=== PATIENT | female | born 1935 | race Caucasian/White ===

== ENCOUNTER → 2023-07-15 10:11 | Outpatient (REF) | payer OTHER, SELFPAY | LOC: DHCBC HW 10:11 | PROVIDERS: ATTENDING PHYSICIAN Internal Medicine; FAMILY PHYSICIAN Internal Medicine | DX: I35.0 Nonrheumatic aortic (valve) stenosis (principal); I34.0 Nonrheumatic mitral (valve) insufficiency | CPT/HCPCS: 93306 ==

== ENCOUNTER 2023-10-02 06:11 | Day surgery (SDC) | payer OTHER, SELFPAY ==
[2023-09-25 12:26] VITALS: BMI 22.4
[2023-09-25 12:59] LABS: % Basophils 0.5 % (0-2); % Eosinophils 1.3 % (0-6); % Immature Granulocytes 0.5 % (0-0.5); % Lymphocytes 22.7 % (20.5-51.1); % Monocytes 9.4 % (1.7-9.3); % Neutrophils 65.6 % (42.2-75.2); Absolute Eosinophils 0.1 10^3/uL (0-0.7); Absolute Lymphocytes 1.8 10^3/uL (1.2-3.4); Absolute Monocytes 0.7 10^3/uL (0.1-0.6); Absolute Neutrophils 5.1 10^3/uL (1.4-6.5); Hematocrit 37.2 % (37.0-47.0); Hemoglobin 12.5 g/dL (12.0-16.0); Mean Corp Hgb Conc. 33.6 g/dL (33.0-37.0); Mean Corpuscular Hgb 28.7 pg (27.0-31.0); Mean Corpuscular Volume 85.3 fL (81.0-99.0); Mean Platelet Volume 9.7 fL (7.4-10.4); Nucleated Red Blood Cells % 0 %; Platelet Count 302 10^3/uL (130-400); Red Blood Cell Count 4.36 10^6/uL (4.20-5.40); Red Cell Dist. Width 13.4 % (11.5-14.5); White Blood Cell Count 7.8 10^3/uL (4.8-10.8)
[2023-09-25 13:15] LABS: ALT (SGPT) 59 U/L (0-35); AST (SGOT) 53 U/L (14-36); Albumin 4.4 g/dl (3.5-5.0); Alkaline Phosphatase 76 U/L (38-126); Blood Urea Nitrogen 22 mg/dl (7-17); Calcium 9.8 mg/dl (8.4-10.2); Carbon Dioxide 24 mmol/L (22-30); Chloride 102 mmol/L (98-107); Estimated Creatinine Clearance 41 ml/min; Glucose 145 mg/dl (70-99); Potassium 4.1 mmol/L (3.5-5.1); Sodium 135 mmol/L (135-145); Total Bilirubin 0.5 mg/dl (0.2-1.3); Total Protein 7.7 g/dl (6.3-8.2); eGFR > 60.00
[2023-10-02] VITALS (12 sets, daily range): BP systolic 121–186; BP diastolic 56–104; BMI 22.3
[2023-10-02] MEDS: NSS 143 ML IV (07:00)
--- NOTE | 2023-10-02 09:10 | ITS.CL.CATH ---
Registered Radiologic Technologist - Catheterization
Cardiac Catheterization
Procedure Report:
CARDIAC CATHETERIZATION REPORT
Date of Procedure: 10/02/2023
Referring: Tucker Arndt MD, PhD
HEMODYNAMIC DATA
AO: 151/69
LV: 128/80
There is moderate aortic stenosis with mean transvalvular gradient 21 mmHg
LEFT VENTRICULOGRAPHY: Not performed
CORONARY ANGIOGRAPHY
Dominance: Right
Left Main: Normal
LAD: Moderate calcification with 30% mid LAD stenosis and otherwise diffuse luminal irregularities
Circumflex: Mild luminal irregularities
RCA: Severely calcified vessel with 99% highly calcific angulated stenosis at the crux. The PDA and posterolateral branches fill antegrade and via fairly well-developed [id number] collaterals
Of note, there was significant innominate artery spasm following coronary angiography which made placing a catheter in the left ventricle technically challenging.
Closure Device: None-the procedure was performed via the right radial artery. The Roge's test was normal prior to the procedure.
Radiation (mGy): 165
DAP (cm2.Gy): 16.7
Fluoroscopy time: 8.5 minutes
CONCLUSIONS
1: Moderate aortic stenosis with mean aortic gradient 21 mmHg
2: Severe single-vessel (RCA) CAD as described
3. Would favor medical therapy at this point as the distal RCA is collateralized. Treatment of the 99% mid RCA lesion will require atherectomy and can be performed if the patient has persistent or accelerating symptoms despite medical therapy.
Continue serial clinical and echocardiographic follow-up for progression of aortic stenosis
Copy to: Tucker Arndt MD, PhD, Lakisha Brock MD
Cameron Young MD, [facility], [facility]
[2023-10-02] MEDS: ZESTRIL 20 MG PO (10:12)
[2023-10-02] MEDS: COREG 9.375 MG PO (10:13)
[2023-10-02] MEDS: NORVASC 5 MG PO (10:13)
--- NOTE | 2023-10-02 11:47 | PTCARENOTE ---
Received report from RN.
--- NOTE | 2023-10-02 12:45 | PTCARENOTE ---
Pt sitting in stretcher AAOx3. See vitals and radial cath site documentation. Pt incontinent of urine and requesting to get dressed.
Pt assisted to restroom w cane. Large amount of incontinence. Cleaned pt and assisted with dressing while reviewing d/c instructions. Pt verbalized and repeated instructions.
Medication script given to pt along w instructions.
== END 2023-10-02 12:38 | disposition home or self-care (01) ==
LOC: CATH 06:11
PROVIDERS: ATTENDING PHYSICIAN Internal Medicine Cardiovascular Disease; FAMILY PHYSICIAN Internal Medicine; OTHER PHYSICIAN Internal Medicine
DX: I25.10 Atherosclerotic heart disease of native coronary artery without angina pectoris (principal); I35.0 Nonrheumatic aortic (valve) stenosis; I10 Essential (primary) hypertension; I48.0 Paroxysmal atrial fibrillation; E78.00 Pure hypercholesterolemia, unspecified; I49.3 Ventricular premature depolarization; I44.0 Atrioventricular block, first degree; Z79.01 Long term (current) use of anticoagulants
CPT/HCPCS: 36415; 80053; 85025; 93005; 93458; C1769; C1894; Q9967

== ENCOUNTER 2024-04-28 15:51 | Emergency (ER) | payer OTHER, SELFPAY ==
[2024-04-28 15:55] VITALS: BP 170/89
--- NOTE | 2024-04-28 15:57 | ED.GENMED ---
ED Provider Triage
<Ricardo Schroeder PA-C - Last Filed: 04/28/24 16:04>
-
Patient seen by provider in Triage?: Seen in Triage
Attestation: A medical screening examination has been initiated by a qualified medical provider. Based on the assessment performed at this time, it has been determined that an emergent medical condition may exist and the patient has been informed
that further medical evaluation and possible additional diagnostic testing may be needed.
HPI: 88-year-old female [facility] after she was diagnosed with multiple left-sided rib fractures from a fall 2 days ago. Patient is on Xarelto due to a history of atrial fibrillation. Does
not believe she hit her head but does note that she was lying flat on the ground. No reported LOC. Patient is endorsing diffuse left-sided chest and upper pain. Due to patient being anticoagulated and known multiple left-sided rib fractures from
an x-ray done earlier today she was brought immediately back into the ER for stat imaging
GENERAL: Alert , in no apparent distress
EYE: No visual abnormalities.
NECK: Trachea midline
ENT: No visible abnormalities.
LUNGS: No acute respiratory distress
NEUROLOGICAL: Alert and oriented
SKIN: Skin intact. No visible changes.
MUSCULOSKELETAL: Moving extremities normally
PSYCH: Normal and appropriate interaction.
This is a medical evaluation conducted in person to initiate diagnostic evaluation and provide initial therapeutics. Please see further documentation by the treating clinician.
History of Present Illness
<Ricardo Schroeder PA-C - Last Filed: 04/28/24 16:04>
General
Chief Complaint: Musculo-Skeletal Complaint
Time Seen by Provider: 04/28/24 16:11
<Reece De La Torre DO - Last Filed: 04/28/24 19:38>
History of Present Illness
History of Present Illness:
TIME OF INITIAL ENCOUNTER: 4:15pm
HPI: 88-year-old female presenting [facility] after she was found to have abnormal x-ray of the chest suggesting left-sided rib fractures. She did not feel when she woke up 2 mornings ago and after she
fell she felt dizzy. Patient is on Xarelto due to a history of atrial fibrillation. The patient does not believe she hit her head but her son suspects that she did strike her head. No reported LOC. Patient is endorsing diffuse left-sided chest
that is transient nature.
EXAM:
GENERAL: Well appearing in no distress, however at times she has significant distress due to pain in the left side of the chest the chest last for a couple of seconds
CERVICAL SPINE: No midline c-spine tenderness with excellent AROM
HEAD: No evidence of craniofacial trauma other than very minimal abrasion over the left eyebrow
CHEST: Moderate left-sided chest wall tenderness, normal heart sounds
LUNGS: Equal lung sounds, no respiratory distress
ABDOMEN: Minimal left upper quadrant abdominal tenderness, no peritoneal signs
EXTREMITIES: Normal active range of motion, no tenderness
NEURO: Good strength all extremities, appropriate mental status, normal speech/language
NUMBER AND COMPLEXITY OF PROBLEMS ADDRESSED AT THE ENCOUNTER
� Chronic conditions affecting care: A-fib on Xarelto, high blood pressure, hyperlipidemia
� Acute Exacerbation and/or Progression of Chronic Illness: This is an acute problem
� Differential Diagnosis includes: Rib fractures, splenic laceration, intracranial hemorrhage, chest/abdominal wall contusion
AMOUNT AND/OR COMPLEXITY OF DATA TO BE REVIEWED AND ANALYZED
� I performed an independent evaluation of and my interpretation is:
EKG: Sinus 71, normal axis, PACs
CT: CTs of the head and C-spine are negative for traumatic injury
X-rays:
Laboratory Studies: White count 12.3, hemoglobin normal, chemistry showed normal renal function
Other:
� Review of other/old records: I reviewed records. In September, the patient had a cardiac catheterization that showed moderate aortic stenosis with severe RCA single-vessel disease for which medical therapy was recommended as the
distal RCA was collateralized.
� Clinical information was obtained by an independent historian: I spoke to the son at bedside for history
� Prescriptions/Medications Considered but not given: Considered narcotic analgesia however after discussion with the son at bedside, we agreed to hold off on narcotic analgesia given the patient's advanced age
� Further testing considered but not performed: Considered x-rays of the shoulders however there is no significant bony tenderness and I personally reviewed the CT imaging of the proximal humeri on CT imaging
RISK OF COMPLICATIONS AND/OR MORBIDITY OR MORTALITY OF PATIENT MANAGEMENT
� Social determinants of health affecting care: Lives at home
� Discussion with other providers:
� Escalation of care including admission/observation vs risk of discharge considered: The patient was seen in triage and imaging studies have been ordered by PA initially.
ANY OTHER UPDATES:
7:20 PM: The patient appears comfortable and denies any significant pain on reassessment. The patient was given Tylenol earlier.
Phy Exam
<Reece De La Torre DO - Last Filed: 04/28/24 19:38>
Physical Exam
Physical Exam:
See HPI
Course
<Ricardo Schroeder PA-C - Last Filed: 04/28/24 16:04>
Orders/Labs/Results
Orders:
Orders
04/28/24 15:58
CT Head W/o Iv Contrast Urgent
Comment:
Reason For Exam: fall 2 days ago, on xarelto
04/28/24 15:59
Electrocardiogram (*1) Urgent
Reason for Study: Chest Pain
EKG- Treatment ONCE
04/28/24 16:01
CT Cervical Spine W/o Iv Contr Urgent
Comment:
Reason For Exam: fall, trauma
CT Chest/abd/pel W Iv Cont Urgent
Reason For Exam: multiple rib fx from fall, on xarelto
04/28/24 16:13
Type+Screen Urgent
Basic Metabolic Panel Urgent
Complete Blood Count/With Diff Urgent
PTT Urgent
Prothrombin Time Urgent
04/28/24 16:36
Acetaminophen [Tylenol] 650 mg PO NOW STA
04/28/24 17:45
ABO2 Urgent
BBK Wristband Number:
Associate notified that ABO2 has been ordered: [id number]
Date: 04/28/24
Time: 16:52
Cloth Washer Back Tender ID: [id number]
Abnormal Lab Results
04/28/24
16:13
WBC 12.3 H 10^3/uL
(4.8-10.8)
Abs Immat Gran (auto) 0.1 H 10^3/uL
(0-0.05)
Absolute Neuts (auto) 9.4 H 10^3/uL
(1.4-6.5)
Absolute Monos (auto) 1.2 H 10^3/uL
(0.1-0.6)
Immature Gran % 0.6 H %
(0-0.5)
Neutrophils % 76.0 H %
(42.2-75.2)
Lymphocytes % 13.3 L %
(20.5-51.1)
Monocytes % 9.6 H %
(1.7-9.3)
PT 15.0 H Sec
(11.4-14.6)
Sodium 132 L mmol/L
(135-145)
Chloride 95 L mmol/L
(98-107)
BUN 19 H mg/dl
(7-17)
Creatinine 0.5 L mg/dL
(0.6-1.0)
Glucose 115 H mg/dl
(70-99)
04/28/24 16:13
04/28/24 16:13
Vital Signs
Initial and Last Documented VS:
Initial Vital Signs
Temp Pulse Resp BP Pulse Ox
36.5 C 80 16 170/89 96
04/28/24 15:55 04/28/24 15:55 04/28/24 15:55 04/28/24 15:55 04/28/24 15:55
Last Documented Vital Signs
Temp Pulse Resp BP Pulse Ox
36.5 C 71 24 129/71 94
04/28/24 15:55 04/28/24 19:15 04/28/24 19:15 04/28/24 19:00 04/28/24 19:15
<Reece Donaldo De La Torre, DO - Last Filed: 04/28/24 19:38>
Orders/Labs/Results
Orders:
Orders
04/28/24 15:58
CT Head W/o Iv Contrast Urgent
Comment:
Reason For Exam: fall 2 days ago, on xarelto
04/28/24 15:59
Electrocardiogram (*1) Urgent
Reason for Study: Chest Pain
EKG- Treatment ONCE
04/28/24 16:01
CT Cervical Spine W/o Iv Contr Urgent
Comment:
Reason For Exam: fall, trauma
CT Chest/abd/pel W Iv Cont Urgent
Reason For Exam: multiple rib fx from fall, on xarelto
04/28/24 16:13
Type+Screen Urgent
Basic Metabolic Panel Urgent
Complete Blood Count/With Diff Urgent
PTT Urgent
Prothrombin Time Urgent
04/28/24 16:36
Acetaminophen [Tylenol] 650 mg PO NOW STA
04/28/24 17:45
ABO2 Urgent
BBK Wristband Number:
Associate notified that ABO2 has been ordered: [id number]
Date: 04/28/24
Time: 16:52
Cloth Washer Back Tender ID: [id number]
Abnormal Lab Results
04/28/24
16:13
WBC 12.3 H 10^3/uL
(4.8-10.8)
Abs Immat Gran (auto) 0.1 H 10^3/uL
(0-0.05)
Absolute Neuts (auto) 9.4 H 10^3/uL
(1.4-6.5)
Absolute Monos (auto) 1.2 H 10^3/uL
(0.1-0.6)
Immature Gran % 0.6 H %
(0-0.5)
Neutrophils % 76.0 H %
(42.2-75.2)
Lymphocytes % 13.3 L %
(20.5-51.1)
Monocytes % 9.6 H %
(1.7-9.3)
PT 15.0 H Sec
(11.4-14.6)
Sodium 132 L mmol/L
(135-145)
Chloride 95 L mmol/L
(98-107)
BUN 19 H mg/dl
(7-17)
Creatinine 0.5 L mg/dL
(0.6-1.0)
Glucose 115 H mg/dl
(70-99)
04/28/24 16:13
04/28/24 16:13
Vital Signs
Initial and Last Documented VS:
Initial Vital Signs
Temp Pulse Resp BP Pulse Ox
36.5 C 80 16 170/89 96
04/28/24 15:55 04/28/24 15:55 04/28/24 15:55 04/28/24 15:55 04/28/24 15:55
Last Documented Vital Signs
Temp Pulse Resp BP Pulse Ox
36.5 C 71 24 129/71 94
04/28/24 15:55 04/28/24 19:15 04/28/24 19:15 04/28/24 19:00 04/28/24 19:15
<Reece De La Torre DO - Last Filed: 04/28/24 19:38>
*Critical Care Note
Total Time (30-74mins, 75-104mins- exclusive of procedures): Not Applicable
ED Attending Note
<Ricardo Schroeder PA-C - Last Filed: 04/28/24 16:04>
-
Portions of this chart may have been created with voice recognition software.� Occasional wrong word or��sound alike� substitutions may have occurred due to the inherent limitations of voice recognition software.
Discharge Plan
Departure
Patient Disposition: Home (Routine Discharge)
Date of Disposition: 04/28/24
Time of Disposition: 19:21
Patient with high blood pressure during this ER visit?: Yes
Discharge Problem:
Chest wall contusion
Instructions: Contusion (DC)
Prescriptions:
No Action
levothyroxine 175 MCG tablet
175 mcg PO DAILY@0700
carvedilol 6.25 MG tablet
9.375 mg PO BID
lisinopril 20 MG tablet
20 mg PO BID
simvastatin 10 MG tablet
10 mg PO QPM
hydralazine 25 MG tablet
25 mg PO BID
amlodipine 5 MG tablet
5 mg PO BID
pantoprazole [Protonix] 20 MG tablet,delayed release (DR/EC)
20 mg PO DAILY
Premarin 1 APPLIC cream
1 applic vaginal DAILY
cholecalciferol (vitamin D3) 1,000 UNITS tablet
1,000 units PO DAILY
Xarelto 20 MG tablet
20 mg PO QPM
Caltrate-D3 Plus Minerals 1 EACH tablet
1 ea PO BID
fluorouracil 5 % Cream
1 applic TOPICAL QPM
solifenacin [Vesicare] 10 mg Tablet
10 mg PO DAILY
nitroglycerin [nitroglycerin] 0.4 mg tablet, sublingual
0.4 mg sublingual [id number] PRN (Reason: chest pain) Qty: 25 5RF
Referrals:
Lakisha Brock MD [Family Provider] -
Activity Restrictions/Additional Instructions:
The CAT scan of the brain shows no bleeding, CAT scan of the cervical spine shows no fracture, CAT scan of the chest, abdomen, and pelvis showed no sign of internal bleeding or signs of fractures. Basic blood work is unremarkable. Tylenol would be
safest for pain. She can continue the blood thinning medication.
Interventions
Interventions:
*Risk Screen - Suicide Last Done: 04/28/24 15:55
*General Assessment Last Done: 04/28/24 16:09
*Neglect/Abuse Screening Last Done: 04/28/24 15:55
ED- Fall Risk Assessment Last Done: 04/28/24 19:23
*ED COVID-19 Vaccine History Last Done: 04/28/24 16:09
*Nursing Disposition Last Done: 04/28/24 19:23
ED-Musculoskeletal Assessment Last Done: 04/28/24 16:09
Discharge Date and Time
Print Language: UPPER SORBIAN
[2024-04-28 16:32] LABS: % Basophils 0.3 % (0-2); % Eosinophils 0.2 % (0-6); % Immature Granulocytes 0.6 % (0-0.5); % Lymphocytes 13.3 % (20.5-51.1); % Monocytes 9.6 % (1.7-9.3); Absolute Immature Granulocytes 0.1 10^3/uL (0-0.05); Absolute Lymphocytes 1.6 10^3/uL (1.2-3.4); Absolute Monocytes 1.2 10^3/uL (0.1-0.6); Absolute Neutrophils 9.4 10^3/uL (1.4-6.5); Hematocrit 39.2 % (37.0-47.0); Hemoglobin 13.3 g/dL (12.0-16.0); Mean Corp Hgb Conc. 33.9 g/dL (33.0-37.0); Mean Corpuscular Hgb 28.9 pg (27.0-31.0); Mean Corpuscular Volume 85.2 fL (81.0-99.0); Mean Platelet Volume 9.1 fL (7.4-10.4); Nucleated Red Blood Cells % 0 %; Platelet Count 320 10^3/uL (130-400); Red Cell Dist. Width 13.3 % (11.5-14.5); White Blood Cell Count 12.3 10^3/uL (4.8-10.8)
[2024-04-28 16:44] LABS: INR 1.13
[2024-04-28 16:45] LABS: APTT 26.7 Sec (23.4-35.0)
[2024-04-28 16:47] LABS: Blood Urea Nitrogen 19 mg/dl (7-17); Calcium 9.6 mg/dl (8.4-10.2); Carbon Dioxide 29 mmol/L (22-30); Chloride 95 mmol/L (98-107); Glucose 115 mg/dl (70-99); Potassium 4.6 mmol/L (3.5-5.1); Sodium 132 mmol/L (135-145); eGFR > 60.00
[2024-04-28] MEDS: TYLENOL 650 MG PO (16:54)
[2024-04-28 16:56] VITALS: BP 170/81
[2024-04-28 17:00] VITALS: BP 172/83
[2024-04-28 18:00] VITALS: BP 146/71
[2024-04-28 19:00] VITALS: BP 129/71
== END 2024-04-28 19:23 | disposition home or self-care (01) ==
LOC: EMR 15:51
PROVIDERS: Physician Assistant Medical; EMERGENCY PHYSICIAN Emergency Medicine; FAMILY PHYSICIAN Internal Medicine
DX: S20.212A Contusion of left front wall of thorax, initial encounter (principal); W19.XXXA Unspecified fall, initial encounter; I48.91 Unspecified atrial fibrillation; Z79.01 Long term (current) use of anticoagulants
CPT/HCPCS: 99284; 70450; 71260; 72125; 74177; 80048; 85025; 85610; 85730; 86850; 86900; 86901; 93005; Q9967

== ENCOUNTER → 2024-05-24 13:43 | Outpatient (REF) | payer OTHER, SELFPAY | LOC: RCS 13:43 | PROVIDERS: ATTENDING PHYSICIAN Internal Medicine; FAMILY PHYSICIAN Internal Medicine | DX: I35.0 Nonrheumatic aortic (valve) stenosis (principal) | CPT/HCPCS: 93306 ==

== ENCOUNTER → 2024-07-28 09:51 | Outpatient (REF) | payer OTHER, SELFPAY | LOC: RAD 09:51 | PROVIDERS: ATTENDING PHYSICIAN Student in an Organized Health Care Education/Training Program; FAMILY PHYSICIAN Internal Medicine | DX: I35.0 Nonrheumatic aortic (valve) stenosis (principal) | CPT/HCPCS: 74174; 75572; Q9967 ==

== ENCOUNTER 2024-08-09 23:43 | Inpatient (IN) | payer OTHER, SELFPAY ==
[2024-08-09 20:07] VITALS: BP 100/53
[2024-08-09 20:38] LABS: % Basophils 0.3 % (0-2); % Eosinophils 0.3 % (0-6); % Immature Granulocytes 1.4 % (0-0.5); % Lymphocytes 13.4 % (20.5-51.1); % Monocytes 11.8 % (1.7-9.3); % Neutrophils 72.8 % (42.2-75.2); Absolute Immature Granulocytes 0.2 10^3/uL (0-0.05); Absolute Lymphocytes 1.6 10^3/uL (1.2-3.4); Absolute Monocytes 1.4 10^3/uL (0.1-0.6); Absolute Neutrophils 8.6 10^3/uL (1.4-6.5); Hematocrit 31.4 % (37.0-47.0); Hemoglobin 10.9 g/dL (12.0-16.0); Mean Corp Hgb Conc. 34.7 g/dL (33.0-37.0); Mean Corpuscular Volume 83.5 fL (81.0-99.0); Mean Platelet Volume 8.5 fL (7.4-10.4); Nucleated Red Blood Cells % 0 %; Platelet Count 409 10^3/uL (130-400); Red Blood Cell Count 3.76 10^6/uL (4.20-5.40); Red Cell Dist. Width 13.6 % (11.5-14.5); White Blood Cell Count 11.8 10^3/uL (4.8-10.8)
[2024-08-09 21:05] LABS: ALT (SGPT) 23 U/L (0-35); AST (SGOT) 25 U/L (14-36); Albumin 3.4 g/dl (3.5-5.0); Alkaline Phosphatase 76 U/L (38-126); Blood Urea Nitrogen 20 mg/dl (7-17); Calcium 9.2 mg/dl (8.4-10.2); Carbon Dioxide 29 mmol/L (22-30); Chloride 89 mmol/L (98-107); Glucose 107 mg/dl (70-99); Potassium 3.9 mmol/L (3.5-5.1); Sodium 123 mmol/L (135-145); Total Bilirubin 0.4 mg/dl (0.2-1.3); Total Protein 5.8 g/dl (6.3-8.2); eGFR > 60.00
[2024-08-09 21:18] LABS: Troponin I < 0.012 ng/ml
[2024-08-09 22:08] VITALS: BMI 20.4
--- NOTE | 2024-08-09 22:48 | ED.GENMED ---
Addendum entered and electronically signed by Almas Morris MD 08/09/24 23:51:
Correction on exam patient with a harsh midsystolic murmur
Original Note:
History of Present Illness
General
Chief Complaint: Chest Pain
Source: patient and family
Exam Limitations: none
Time Seen by Provider: 08/09/24 22:31
History of Present Illness
History of Present Illness:
Patient was sent for intermittent intermittent chest pain. Patient does not recall this. However son has noted increased recent infusion over the last month. Attributed to UTIs. Patient denies other specific complaints. Currently in
rehabilitation
Past History
Past History
ED Past Medical History: Arrthythmia, HTN, Hypercholesterolemia and Hypothyroidism
ED Past Surgical History: Other (Cataracts)
Review of Systems
Review of Systems
All Other Systems: Not applicable
Phy Exam
Physical Exam
Physical Exam:
GENERAL: Alert and oriented in no apparent distress. Elderly and frail somewhat slow to answer questions at times
EYE: Orbits normal.
NECK: Supple, no significant adenopathy.
ENT: Pharynx without erythema
CARDIAC: Regular rate and rhythm without any obvious murmurs.
LUNGS: Clear breath sounds,normal
ABDOMEN: Soft, without focal tenderness or distention
NEUROLOGICAL: Alert and oriented x 3, grossly non-focal. Poor insight as to her complaints or issues
SKIN: Warm and dry, no rash or lesion, no discoloration, skin intact.
MUSCULOSKELETAL: No edema,no deformity.Good color
PSYCH: Normal and appropriate interaction.
Scores
Heart Score for Chest Pain Patients
STEMI patient?: Not applicable
Course
Orders/Labs/Results
Orders:
Orders
08/09/24 20:00
Electrocardiogram (*1) Urgent
Reason for Study: Chest Pain
EKG- Treatment ONCE
08/09/24 20:32
CMP [Comprehensive Metabolic Panel] Urgent
Complete Blood Count/With Diff Urgent
Serum Osmolality Urgent
Comment: ADD ON
TSH Urgent
Troponin I Urgent
08/09/24 22:49
Straight cath- Treatment ONCE
Urinalysis Reflex To Culture Urgent
08/09/24 22:54
Urine Fentanyl [Fentanyl, Urine] Routine
Urine Osmolality Random [Osmolality, Random Urine] Routine
08/09/24 22:56
Add On- LAB Urgent
Tests Added?: TSH
08/09/24 23:04
Urinalysis Reflex To Culture Routine
Abnormal Lab Results
08/09/24
20:32
WBC 11.8 H 10^3/uL
(4.8-10.8)
RBC 3.76 L 10^6/uL
(4.20-5.40)
Hgb 10.9 L g/dL
(12.0-16.0)
Hct 31.4 L %
(37.0-47.0)
Plt Count 409 H 10^3/uL
(130-400)
Abs Immat Gran (auto) 0.2 H 10^3/uL
(0-0.05)
Absolute Neuts (auto) 8.6 H 10^3/uL
(1.4-6.5)
Absolute Monos (auto) 1.4 H 10^3/uL
(0.1-0.6)
Immature Gran % 1.4 H %
(0-0.5)
Lymphocytes % 13.4 L %
(20.5-51.1)
Monocytes % 11.8 H %
(1.7-9.3)
Sodium 123 L mmol/L
(135-145)
Chloride 89 L mmol/L
(98-107)
BUN 20 H mg/dl
(7-17)
Glucose 107 H mg/dl
(70-99)
Total Protein 5.8 L g/dl
(6.3-8.2)
Albumin 3.4 L g/dl
(3.5-5.0)
08/09/24 20:32
08/09/24 20:32
Vital Signs
Initial and Last Documented VS:
Initial Vital Signs
Temp Pulse Resp BP Pulse Ox
98.4 F 66 17 100/53 95
08/09/24 20:07 08/09/24 20:07 08/09/24 20:07 08/09/24 20:07 08/09/24 20:07
Last Documented Vital Signs
Temp Pulse Resp BP Pulse Ox
98.4 F 66 17 100/53 95
08/09/24 20:07 08/09/24 20:07 08/09/24 20:07 08/09/24 20:07 08/09/24 20:07
MDM/Problems Addressed
Differential Diagnosis Includes:
Patient with hyponatremia. Clearly warrants admission for this issue. May be a significant component of her confusion. Will check urine. Cardiac testing stable. History unreliable to risk stratify the chest pain.
*Pulse Oximetry
Patient hypoxic: no
*EKG
Interpreted by ED Provider?: Yes
Interpretation: abnormal
Comparison EKG: changes noted
Heart Rate: 65
Rate: normal
Rhythm: sinus
[place]: normal axis
Interval: normal interval
QRS Pattern: normal QRS
Ischemia: non-specific ST changes
*Critical Care Note
Total Time (30-74mins, 75-104mins- exclusive of procedures): Not Applicable
Data Reviewed
Review of Other/Old Records Reveals: Labs, Records and Testing
ED Attending Note
-
Portions of this chart may have been created with voice recognition software.� Occasional wrong word or��sound alike� substitutions may have occurred due to the inherent limitations of voice recognition software.
Discharge Plan
Departure
Patient Disposition: Admit
Date of Disposition: 08/09/24
Time of Disposition: 23:07
Presentation/result/management discussed w/ accepting MD/DO: Hospitalist
Discharge Problem:
Hyponatremia/confusion, Nonspecific recurrent chest pain, UTI by history
Prescriptions:
No Action
levothyroxine 175 MCG tablet
175 mcg PO DAILY@0700
carvedilol 6.25 MG tablet
9.375 mg PO BID
lisinopril 20 MG tablet
20 mg PO BID
simvastatin 10 MG tablet
10 mg PO QPM
hydralazine 25 MG tablet
25 mg PO BID
amlodipine 5 MG tablet
5 mg PO BID
pantoprazole [Protonix] 20 MG tablet,delayed release (DR/EC)
20 mg PO DAILY
Premarin 1 APPLIC cream
1 applic vaginal DAILY
cholecalciferol (vitamin D3) 1,000 UNITS tablet
1,000 units PO DAILY
Xarelto 20 MG tablet
20 mg PO QPM
Caltrate-D3 Plus Minerals 1 EACH tablet
1 ea PO BID
fluorouracil 5 % Cream
1 applic TOPICAL QPM
solifenacin [Vesicare] 10 mg Tablet
10 mg PO DAILY
nitroglycerin [nitroglycerin] 0.4 mg tablet, sublingual
0.4 mg sublingual [id number] PRN (Reason: chest pain) Qty: 25 5RF
Referrals:
Lakisha Brock MD [Family Provider] -
Interventions
Interventions:
*Risk Screen - Suicide Last Done: 08/09/24 20:09
*General Assessment Last Done: 08/09/24 20:09
*Neglect/Abuse Screening Last Done: 08/09/24 20:09
*ED COVID-19 Vaccine History Last Done: 08/09/24 20:09
Discharge Date and Time
Print Language: SINHAL[place]
--- NOTE | 2024-08-09 23:15 | HPS.HSE ---
Family Physician
-
Family Physician: Lakisha Brock
Chief Complaint
-
CP, intermittent confusion
History of Present Illness
I could not get any information from the patient is confused
Information gathered by chart review and speaking with the ER staff.
HPI
89[facility] HX severe , HLD, HTN , currently on Xarelto ? arrthmia sent to ER
- intermittent intermittent chest pain
- Patient does not recall this.
- However son has noted increased recent infusion over the last month attributed to UTIs.
- Patient denies other specific complaints. Currently in rehabilitation
Medical History
Past Medical History
Past Medical History: Reports CAD (single vessel RCA CAD ), HTN, Hypercholesterolemia and Hypothyroidism
Past Surgical History: Reports Other
Social History
Tobacco: Non-smoker
Alcohol: None
Drug: None
Family History
Family History: Not pertinent
Allergies / Home Medications
Allergies reflects when Allergies were last updated in [employer].
Home Medications with original date entered in [employer]
Allergy/Medication List:
Allergies
Allergy/AdvReac Type Severity Reaction Status Date / Time
No Known Allergies Allergy Verified 08/09/24 20:08
Home Medications
amlodipine 5 mg tablet 5 mg PO BID 04/05/20
calcium 300 mg-D3 20 mcg-magnesium 25 mg-coppr 0.5 [id number] tablet (Caltrate-D3 Plus Minerals) 1 ea PO BID 04/05/20
carvedilol 6.25 mg tablet 9.375 mg PO BID 04/05/20
cholecalciferol (vitamin D3) 25 mcg (1,000 unit) tablet 1,000 units PO DAILY 04/05/20
conjugated estrogens 0.625 mg/gram vaginal cream (Premarin) 1 applic vaginal DAILY 04/05/20
hydralazine 25 mg tablet 25 mg PO BID 04/05/20
levothyroxine 175 mcg tablet 175 mcg PO DAILY@0700 04/05/20
lisinopril 20 mg tablet 20 mg PO BID 04/05/20
pantoprazole 20 mg tablet,delayed release (Protonix) 20 mg PO DAILY 04/05/20
rivaroxaban 20 mg tablet (Xarelto) 20 mg PO QPM 04/05/20
simvastatin 10 mg tablet 10 mg PO QPM 04/05/20
fluorouracil 5 % topical cream 1 applic topical QPM 09/25/23
nitroglycerin 0.4 mg sublingual tablet 0.4 mg sublingual [id number] PRN chest pain #25 tabs 10/02/23
solifenacin 10 mg tablet (Vesicare) 10 mg PO DAILY 10/02/23
Review of Systems
-
Constitutional: Reports No Symptoms
EENT: Reports No Symptoms
Respiratory: Reports No Symptoms
Cardiac: Reports See HPI
Abdomen/GI: Reports No Symptoms
: Reports No Symptoms
Musculoskeletal: Reports No Symptoms
Skin: Reports No Symptoms
Neurological: Reports See HPI
Endocrine: Reports No Symptoms
Hematologic/Lymphatic: Reports No Symptoms
Psych: Reports No Symptoms
Physical Exam
Vital Signs
Vital Signs
Temp Pulse Resp BP Pulse Ox
98.4 F 66 17 100/53 95
08/09/24 20:07 08/09/24 20:07 08/09/24 20:07 08/09/24 20:07 08/09/24 20:07
Physical Exam
General: Well Developed, Well Nourished and No Apparent Distress
HEENT: NormoCephalic, Moist mucous membranes and Atraumatic
Respiratory: Clear
Cardiac: S1/S2, Regular Rhythm and Murmur; No Rub
GI: Soft, Non Tender, Non Distended and Normal Bowel Sounds; No Organomegaly
Rectal: Deferred by Provider
Musculoskeletal: No Clubbing, No Cyanosis and No Edema
Skin: No Rash
Neuro: Nonfocal/grossly intact
Laboratory Results
-
08/09/24 20:32
08/09/24 20:32
Laboratory Results
Total Bilirubin 0.4 mg/dl (0.2-1.3) 08/09/24 20:32
AST 25 U/L (14-36) 08/09/24 20:32
ALT 23 U/L (0-35) 08/09/24 20:32
Alkaline Phosphatase 76 U/L (38-126) 08/09/24 20:32
Troponin I < 0.012 ng/ml 08/09/24 20:32
Data Reviewed
-
Medical Tests (Nuc Med, Echo, EKG etc): Report Reviewed by me
Lab Data: Labs Reviewed by me
Old Records: Reviewed
Impression/Plan
-
VS
08/09/24
20:07
Temp 98.4 F
Pulse 66
Resp Rate 17
Blood pressure 100/53
SaO2 95
Oxygen Mode of Delivery Room air
Laboratory Tests
06/07/24 08/09/24 08/09/24
09:20 20:32 22:54
WBC 11.8 H
Hgb 13.0 10.9 L
Plt Count 409 H
Sodium 137 123 L
Chloride 89 L
Carbon Dioxide 29
BUN 20 H
eGFR > 60.00
Glucose 107 H
Serum Osmolality Pending
Troponin I < 0.012
Albumin 3.4 L
TSH Pending
Urine Fentanyl Screen Pending
EKG
NORMAL SINUS RHYTHM
POSSIBLE ANTERIOR INFARCT , AGE UNDETERMINED
ABNORMAL ECG
WHEN COMPARED WITH ECG OF 07-JUN-2024 09:25,
PREMATURE VENTRICULAR COMPLEXES ARE NO LONGER PRESENT
NONSPECIFIC T WAVE ABNORMALITY NOW EVIDENT IN INFERIOR LEADS
10/02/23 Card cath
1: Moderate aortic stenosis with mean aortic gradient 21 mmHg
2: Severe single-vessel (RCA) CAD as described
3. Would favor medical therapy at this point as the distal RCA is collateralized. Treatment of the 99% mid RCA lesion will require atherectomy and can be performed if the patient has persistent or accelerating symptoms despite medical therapy.
Continue serial clinical and echocardiographic follow-up for progression of aortic stenosis
05/24/24 TTE
Normal biventricular size and systolic function without regional wall motion abnormality.
Severe aortic stenosis.
Trace aortic regurgitation.
Trivial pericardial effusion.
Echocardiogram on 07/15/2023, the gradient across her valve has increased from 50 to over 28 mmHg on the prior study to 60/39 mmHg on the current study.
MIKEL was 0.8 cm2 on the prior study and is 0.7 cm2 on the current study.
-
No PRIOR hospitalist admission:
ASSESSMENT & PLAN
Severe hyponatremia and hypochloremia
- Pending Ur Na, Ur Osm, Sr Osm and TSH
- FR 40 FL Oz and observe Na in AM
Intermittent CP: - currently no CP. NEG TPNI. Abnormql EKG with NOS abn T wave in inf lead
10/02/23 Card cath report : Severe single-vessel (RCA) CAD
HLD on statin
Of note Per [employer] on CC report: favor medical therapy at this point as the distal RCA is collateralized. - Treatment of the 99% mid RCA lesion will require atherectomy and can be performed if the patient has persistent or accelerating
symptoms despite medical therapy.
- on LICENSE EXAMINER Xarelto
- c/w Carvedilol
- c/w Simvastatin
- will avoid NTG sl due to severe
- Trend TPNI
- CBC card consult
Progressive confusional state : infective vs Cognitive decline
- check UA reflex to UCx
- HCT
- Fall precaution
Severe aortic stenosis
- Interval increase AoV Gradient to 60/39 mmHg
- Interval worsening of MIKEL was 0.8 cm2 on the prior study and is 0.7 cm2
- serial Card evaluation
Benign HTN
- cw LICENSE EXAMINER amlodipine, Carvedilol , Hydralazine , Lisinopril
Hypothyroid
- LT4
DVT Px: on Xarelto
Full code
IP TLM
[2024-08-09 23:42] LABS: Urine Albumin 2+ (Neg - Trace); Urine Bilirubin Negative (Negative); Urine Character Slightly Cloudy (Clear); Urine Color Yellow; Urine Glucose Negative (Negative); Urine Ketone Negative (Negative); Urine Leukocyte 3+ (Negative); Urine Nitrite Negative (Negative); Urine Occult Blood Negative (Negative); Urine Specific Gravity 1.015 (<1.030); Urine Urobilinogen Negative (Neg - 1+); Urine pH 6.5 (5.0-9.0)
[2024-08-09 23:47] LABS: Osmolality Urine 427 mOsm/kg (300-900)
[2024-08-09 23:50] VITALS: BP 145/70
[2024-08-09 23:55] LABS: Fentanyl, Urine Negative (Negative)
[2024-08-09 23:57] LABS: Osmolality Serum 270 mOsm/kg (275-300)
[2024-08-10 00:07] LABS: Urine Bacteria Many (Negative); Urine Red Blood Cell 0-2 /HPF (0-2); Urine White Cell 40-50 /HPF (0-5)
[2024-08-10 00:56] LABS: Troponin I < 0.012 ng/ml
[2024-08-10 03:30] VITALS: BP 141/76
[2024-08-10 05:01] VITALS: BMI 20.4
[2024-08-10 06:45] VITALS: BP 142/64
[2024-08-10 08:05] LABS: Hematocrit 26.5 % (37.0-47.0); Hemoglobin 9.1 g/dL (12.0-16.0); Mean Corp Hgb Conc. 34.3 g/dL (33.0-37.0); Mean Corpuscular Hgb 28.5 pg (27.0-31.0); Mean Corpuscular Volume 83.1 fL (81.0-99.0); Mean Platelet Volume 9.1 fL (7.4-10.4); Platelet Count 353 10^3/uL (130-400); Red Blood Cell Count 3.19 10^6/uL (4.20-5.40); Red Cell Dist. Width 13.8 % (11.5-14.5); White Blood Cell Count 10.7 10^3/uL (4.8-10.8)
[2024-08-10 08:27] LABS: Troponin I < 0.012 ng/ml
--- NOTE | 2024-08-10 08:33 | VNURNOTE ---
Chart reviewed. Patient is current with [facility] nursing, PT, OT. Will continue to follow hospital course and DC plans.
--- NOTE | 2024-08-10 08:41 | CON.CAR ---
Addendum entered and electronically signed by Griffin Arndt MD 08/10/24 11:33:
89 yo female with PMH of severe , undergoing TAVR evaluation, paroxysmal A fib (xarelto held for falls), recurrent UTI is admitted with confusion, chest pain. She is currently chest pain free. Exam with RRR, III/ systolic murmur at RUSB, trace
LE edema. EKG: NSR, nl EKG, TnI <0.012 x3.
Chest pain. Seems atypical. She has known 99% RCA from cath 09/2023. If chest pain continues, will consider repeat cath. Monitor for recurrent symptoms.
Severe . Continue PAT's for TAVR.
Anemia. No longer on OAC. No obvious bleeding. Trend Hgb.
Hyponatremia. May be cause of confusion. Nephrology has been consulted.
Possible UTI. Per hospitalist.
Original Note:
Consultation
Consultation Request
Date/Time Consultation Requested: 08/09/24 5756
Date/Time Consultation Performed: 08/10/24 5442
Requesting Provider: Dr. Carballo
Performing Provider: Peri CERDA for Dr. Arndt
Reason for Consultation: CP, severe , CAD, hyponatremia
Medical History
-
Chief Complaint: chest discomfort
History of Present Illness:
89 y/o female with severe (plans underway for TAVR), PAF (was on Xarelto, but stopped for falls at a recent [facility]ization per OP chart), hypertension, dyslipidemia, CAD with mid RCA 99% lesion, with collaterals. She is here from a
nursing facility for reports of intermittent chest discomfort. Apparently, she has also been confused and being treated for UTI as OP. She is in no distress at the time of my assessment. She is AAO x3, but is forgetful about why she is here and
therefore is a poor historian regarding her presenting symptoms. She has no CP at present. EKG and trops stable. Hyponatremia is noted and nephrology is consulted.
Past Medical History
Past Medical History: Arrhythmias, HTN, Hypercholesterolemia and Valvular Disease
Social History
Living: Senior Living ([facility])
Family History
Family History: Reviewed & Not Pertinent
Allergies / Home Medications
Allergy/AdvReac Type Severity Reaction Status Date / Time
No Known Allergies Allergy Verified 08/09/24 20:08
�Medication �Instructions �Recorded �Confirmed �Type
Official medicine list not yet done:
-current cardiac meds per SNF list in physical chart: amlodipine 5 mg PO daily, Coreg 9.375 mg PO BID, hydralazine 25 mg PO TID, simvastatin 10 mg PO daily
Review of Systems
-
History Source: Patient and Other (and chart)
Constitutional: Other (falls, not clear any since recent hospitalizations)
Cardiac: Chest Pain
Physical Exam
Vital Signs
Temp Pulse Resp BP Pulse Ox
98.3 F 67 16 142/64 95
08/10/24 06:45 08/10/24 06:45 08/10/24 06:45 08/10/24 06:45 08/10/24 06:45
Lab Results
08/10/24 07:24
Troponin I < 0.012 ng/ml 08/10/24 07:24
Physical Exam
General: Well Developed, Well Nourished and No Apparent Distress
HEENT: Normocephalic and Anicteric
Respiratory: Clear and Non Labored Respirations
Cardiac: Regular Rhythm and Murmur (IV/ systolic)
Musculoskeletal: No Edema
Skin: Warm and Dry
Neuro: AO x 3 and Other (forgetful)
Psych: Calm
Impression / Plan
-
Chest discomfort:
-patient forgetful about the chest discomfort and currently having none. EKG and trop stable. She has known CAD (med management) and severe , with plans for TAVR later this month. TAVR team updated on current status.
Aortic stenosis: severe
-Echo 05/24/24: Normal biventricular size and systolic function without regional wall motion abnormality. Severe aortic stenosis. Trivial pericardial effusion. Echocardiogram on 07/15/2023, the gradient across her valve has increased from 50 to over
28 mmHg on the prior study to 60/39 mmHg on the current study. MIKEL was 0.8 cm2 on the prior study and is 0.7 cm2 on the current study.
-plan is for TAVR later this month- TAVR team updated on current status
Hyponatremia:
-NA+ 123 on arrival, now 126
-nephrology is consulted
Hypertension:
-seems to be stable
-continue OP meds- I adjusted them to reflect her current meds
PAF:
-stable in SR- continue Coreg and follow telemetry
-off Xarelto due to falls
CAD:
-cath 10/02/23:LAD: Moderate calcification with 30% mid LAD stenosis and otherwise diffuse luminal irregularities RCA: Severely calcified vessel with 99% highly calcific angulated stenosis at the crux. The PDA and posterolateral branches fill
antegrade and via fairly well-developed beul-or-fdsor collaterals.
-was on Xarelto, currently off due to falls
UTI:
-on abx as OP
-management per primary team
Anemia:
-denies any clinical bleeding, but hgb dropping
-follow closely, defer w/u to primary team
Data Reviewed
-
EKG: Tracing Personally Visualized and interpreted (NSR)
CT Scan: Report Reviewed by me (head CT: No acute intracranial abnormality noted.)
Medical Tests (Nuc Med, Echo etc): Report Reviewed by me (echo as noted)
Labs: Labs Reviewed by me
[2024-08-10 08:45] LABS: Blood Urea Nitrogen 16 mg/dl (7-17); Calcium 8.1 mg/dl (8.4-10.2); Carbon Dioxide 30 mmol/L (22-30); Chloride 95 mmol/L (98-107); Estimated Creatinine Clearance 48 ml/min; Glucose 83 mg/dl (70-99); HDL Cholesterol 35 mg/dl; LDL Cholesterol, Calculated 43 mg/dl; Potassium 3.8 mmol/L (3.5-5.1); Sodium 126 mmol/L (135-145); Total Cholesterol 99 mg/dl (50-199); Triglyceride 108 mg/dl (10-149); Very Low Density Lipoprotein 21 mg/dl (0-30); eGFR > 60.00
[2024-08-10] MEDS: COREG 9.375 MG PO ×2 (09:04→20:43)
[2024-08-10] MEDS: ZESTRIL 20 MG PO (09:04)
[2024-08-10] MEDS: NORVASC 5 MG PO (09:04)
[2024-08-10] MEDS: APRESOLINE 25 MG PO (09:04)
[2024-08-10 09:52] LABS: Free T4 1.54 ng/dl (0.78-2.19)
[2024-08-10 10:10] LABS: Glycohemoglobin (HgbA1c) 5.4 % (4.0-5.6)
[2024-08-10 11:34] VITALS: BP 96/46
--- NOTE | 2024-08-10 11:54 | W.CON.NEPH ---
Consultation
-
Date/Time Consultation Requested: 08/10/2024 9 AM
Date/Time Consultation Performed: 08/10/2024 11 AM
Requesting Provider: Dr. Holm
Performing Provider: Dr. Hull
Reason for Consultation: hyponatremia
Medical History
-
Chief Complaint: Chest pain
History of Present Illness:
This is an 89-year-old female who resides at senior living. She was sent to the emergency room because of of intermittent chest pain. The daughter was present during those complaints. On arrival to the emergency room they were unable to elicit
those complaints. There was concern that mental status was also worse. He has severe aortic stenosis undergoing TAVR workup. She also has paroxysmal atrial fibrillation not on anticoagulation given recent falls. She has hypertension on a
multidrug regimen. At the time of admission her sodium level was 123. Recent blood work in May 2024 showed a normal sodium level. She was also found to have a urinary tract infection and was placed on antibiotics.
Past Medical History
Severe aortic stenosis, hypertension, paroxysmal atrial fibrillation, hyperlipidemia, coronary disease, falls, hypothyroidism, uterine prolapse with history of pessary use, osteoporosis, factor V Leiden, actinic keratoses, osteoporosis, left renal
angiomyolipoma
Right knee prepatellar bursa excision, cataract extraction, breast biopsy
Social History
Tobacco: Non-Smoker
Alcohol: None
Family History
Family History: Not Pertinent
Allergies / Home Medications
Allergy/AdvReac Type Severity Reaction Status Date / Time
No Known Allergies Allergy Verified 08/09/24 20:08
�Medication �Instructions �Recorded �Confirmed �Type
amlodipine 5 mg tablet 5 mg PO BID Blood Pressure 04/05/20 10/02/23 History
calcium 300 mg-D3 20 mcg-magnesium 1 ea PO BID Supplement 04/05/20 10/02/23 History
25 mg-coppr 0.5 [id number]
tablet (Caltrate-D3 Plus Minerals)
carvedilol 6.25 mg tablet 9.375 mg PO BID Heart Failure 04/05/20 10/02/23 History
cholecalciferol (vitamin D3) 25 1,000 units PO DAILY Supplement 04/05/20 10/02/23 History
mcg (1,000 unit) tablet
conjugated estrogens 0.625 mg/gram 1 applic vaginal DAILY Hormonal 04/05/20 10/02/23 History
vaginal cream (Premarin) Agent
hydralazine 25 mg tablet 25 mg PO BID Blood Pressure 04/05/20 10/02/23 History
levothyroxine 175 mcg tablet 175 mcg PO DAILY@0700 Thyroid 04/05/20 10/02/23 History
lisinopril 20 mg tablet 20 mg PO BID Blood Pressure 04/05/20 10/02/23 History
pantoprazole 20 mg tablet,delayed 20 mg PO DAILY Gastrointestinal 04/05/20 10/02/23 History
release (Protonix) Issue
rivaroxaban 20 mg tablet (Xarelto) 20 mg PO QPM Blood Clot 04/05/20 10/02/23 History
Prevention/Tx
simvastatin 10 mg tablet 10 mg PO QPM High Cholesterol 04/05/20 10/02/23 History
fluorouracil 5 % topical cream 1 applic topical QPM Skin Issues 09/25/23 10/02/23 History
nitroglycerin 0.4 mg sublingual 0.4 mg sublingual [id number] PRN 10/02/23 Rx
tablet chest pain #25 tabs
solifenacin 10 mg tablet (Vesicare) 10 mg PO DAILY Urinary Issue 10/02/23 10/02/23 History
Review of Systems
-
No chest pain or shortness of breath. No issues with urination. Decreased appetite.
All other systems: Negative unless noted
Physical Exam
Vital Signs
Vital Signs
Temp Pulse Resp BP Pulse Ox
98.1 F 64 18 96/46 94
08/10/24 11:34 08/10/24 11:34 08/10/24 11:34 08/10/24 11:34 08/10/24 11:34
Lab Results
WBC 10.7 10^3/uL (4.8-10.8) 08/10/24 07:24
RBC 3.19 10^6/uL (4.20-5.40) L 08/10/24 07:24
Hgb 9.1 g/dL (12.0-16.0) L 08/10/24 07:24
Hct 26.5 % (37.0-47.0) L 08/10/24 07:24
Plt Count 353 10^3/uL (130-400) 08/10/24 07:24
Sodium 126 mmol/L (135-145) L 08/10/24 07:24
Potassium 3.8 mmol/L (3.5-5.1) 08/10/24 07:24
Chloride 95 mmol/L (98-107) L 08/10/24 07:24
Carbon Dioxide 30 mmol/L (22-30) 08/10/24 07:24
BUN 16 mg/dl (7-17) 08/10/24 07:24
Creatinine 0.5 mg/dL (0.6-1.0) L 08/10/24 07:24
eGFR > 60.00 08/10/24 07:24
Glucose 83 mg/dl (70-99) 08/10/24 07:24
Calcium 8.1 mg/dl (8.4-10.2) L 08/10/24 07:24
Albumin 3.4 g/dl (3.5-5.0) L 08/09/24 20:32
Laboratory Tests
06/07/24 08/09/24
09:20 23:27
Sodium 137
Ur Specific [place] 1.015
Urine Osmolality 427
Physical Exam
Patient is awake alert oriented and in no distress. Mood and affect were pleasant, insight and judgment were good. Pupils are equal round and reactive to light, extraocular movements are intact, sclera were anicteric. Hearing was normal, ears and
nose are intact. Oropharynx was clear. Neck was supple with trachea midline and no thyromegaly. Heart was regular rate and rhythm without rubs. 3/6 systolic murmur at the base. This lower extremities without edema. Lungs were clear to
auscultation bilaterally and with normal excursion. Abdomen was soft, nontender, with normal active bowel sounds, and no hepatosplenomegaly. Skin was without rash and with decreased turgor.
Data Reviewed
-
CT Scan: Report Reviewed by me (CT head 08/10/2024 no acute disease)
Medical Tests (Nuc Med, Echo etc): Image Personally Visualized and interpreted (08/10/2024 by my reading shows normal sinus rhythm)
Labs: Labs Reviewed by me
Old Records: Reviewed
Assessment/Plan
-
Assessment
Hyponatremia
Severe aortic stenosis
UTI
CAD
Plan
Fluid restriction 40 ounces per day
Encourage oral intake
Check urine sodium and fractional excretion of sodium
May benefit from Samsca or Lasix
Watch BP, low this morning
Discussed with daughter
[2024-08-10] MEDS: STERILE WATER FOR INJECTION 10 ML IV (12:29)
[2024-08-10] MEDS: ROCEPHIN 1000 MG IV (12:29)
[2024-08-10 15:00] VITALS: BP 129/60
--- NOTE | 2024-08-10 16:17 | W.PN.HOSP.TC ---
Today's Communication/Plan
-
see note
Assessment / Plan
Assessment / Plan
1. Acute hyponatremia
-Check urine electrolytes/osmolality
-Baseline sodium of 135+, came in with sodium of 123
-Maintain 40 ounce fluid restriction
-Not on medication causing hyponatremia
-TSH elevated 19.5, can cause hyponatremia
2. Chest pain
-No significant ST segment changes on EKG
-Troponin remains negative
-Cardiology following
-Patient to be n.p.o. past midnight tentatively for heart catheterization tomorrow if have recurrence of chest pain
3. Sev
-Pending TAVR next week.
-Cardio will involve TAVR team for Pre-procedure testing
4. Recurrent UTI
r/o UTI
History of vaginal pessary for prolapse
-Patient have history of recurrent urinary tract infection
-UA showing pyuria/bacteriuria although patient not having significant symptom
-Urine culture collected
-Maintained on 3 days of empiric Rocephin for now
5. Worsening encephalopathy
-Patient reported to having some problems with memory/confusion
-Avoid sedating medication
-Although UTI is not a strong suspicion, treating empirically
-Patient hypothyroidism likely playing a role here
-Check B12 folate level as well
6. Hypothyroidism
-Patient taking 175 mcg levothyroxine daily
-TSH 19.5, Free T4 wnl
-Patient stated of taking levothyroxine first thing in the morning
7. Paroxysmal atrial fibrillation
-Currently off of Xarelto due to fall problems
Essential hypertension
GERD
Hyperlipidemia
Full code
Care plan discussed with patient daughter over the phone
Discussed with cardiology
Total time spent : 52 mins
I personally saw and examined the patient.
I have reviewed all diagnostic interpretations and treatment plans as written.
Time includes patient management by me, time spent at the patients bedside, time to review lab and imaging results, discussing patient care, documentation in the medical record, and time spent with the family or caregiver and discussing care plan
with RN/Consultants.
Anticipated Discharge: 24 - 48 hours
Subjective/Interval History
-
Date of Service: August 10, 2024
No complaints overnight
Sitting comfortably in chair
Objective Data
-
Labs:
Laboratory Results
08/10/24
07:24
WBC 10.7
Hgb 9.1 L
Hct 26.5 L
Plt Count 353
Sodium 126 L
Potassium 3.8
Chloride 95 L
Carbon Dioxide 30
BUN 16
Creatinine 0.5 L
Glucose 83
Calcium 8.1 L
Vital Signs:
Vital Signs
Temp Pulse Resp BP Pulse Ox
98.7 F 66 18 129/60 92
08/10/24 15:00 08/10/24 15:00 08/10/24 15:00 08/10/24 15:00 08/10/24 15:00
Review of Systems
-
Respiratory: Reports No Symptoms
Cardiac: Reports No Symptoms
Abdomen/GI: Reports No Symptoms
Physical Exam
-
General: No Apparent Distress and Comfortable
HEENT: Negative Oxygen
Respiratory: Clear to Auscultation
Cardiac: Regular Rhythm and S1/S2; Negative Murmur or Rub
GI: Soft, Nontender and Nondistended
Musculoskeletal: No Edema
Neuro: Awake, Alert, Oriented, No Motor Deficits, Nonfocal/Grossly Intact and Other (Forgetful at times)
Psych: Calm
[2024-08-10 16:40] LABS: Folate 12.8 ng/ml (2.76-20); Vitamin B12 634 pg/ml (239-931)
[2024-08-10] MEDS: LIPITOR 10 MG PO (17:52)
[2024-08-10 18:02] LABS: COVID-19 Antigen Positive (Negative)
[2024-08-10 20:07] VITALS: BP 113/61
[2024-08-10] MEDS: APRESOLINE PO (20:42)
[2024-08-10 23:00] VITALS: BP 129/51
--- NOTE | 2024-08-10 23:19 | PTCARENOTE ---
Addendum entered by Joseph Kessler RN 08/11/24 04:10:
Pt bladder scanned for 434 mL and successfully straight cathed with 15 Fr catheter for 400 mL of cloudy yellow urine. Urine sample sent to lab.
Original Note:
Pt bladder scanned for 103 mL, attempted straight cath with 15Fr; pt voided when catheter was inserted and this RN was unable to obtain urine sample for urine sodium/creat. Will attempt again.
[2024-08-11] VITALS (7 sets, daily range): BP systolic 106–146; BP diastolic 54–88; PULSE 73; O2SAT 95
[2024-08-11 04:17] LABS: Urine Sodium 9 mmol/L (30-90)
[2024-08-11 07:45] LABS: Hematocrit 25.8 % (37.0-47.0); Hemoglobin 8.8 g/dL (12.0-16.0); Mean Corp Hgb Conc. 34.1 g/dL (33.0-37.0); Mean Corpuscular Hgb 28.8 pg (27.0-31.0); Mean Corpuscular Volume 84.3 fL (81.0-99.0); Mean Platelet Volume 8.8 fL (7.4-10.4); Platelet Count 349 10^3/uL (130-400); Red Blood Cell Count 3.06 10^6/uL (4.20-5.40); White Blood Cell Count 8.8 10^3/uL (4.8-10.8)
[2024-08-11 08:15] LABS: Blood Urea Nitrogen 12 mg/dl (7-17); Calcium 8.3 mg/dl (8.4-10.2); Carbon Dioxide 29 mmol/L (22-30); Chloride 95 mmol/L (98-107); Estimated Creatinine Clearance 48 ml/min; Glucose 85 mg/dl (70-99); Potassium 3.6 mmol/L (3.5-5.1); Sodium 126 mmol/L (135-145); eGFR > 60.00
--- NOTE | 2024-08-11 09:13 | PN.CDI ---
CDI
- -
CDI:
Physician Documentation Request
Admit Date: 08/09/24 23:43
Dear Doctor Mihai,
Clinical Indicators:
Patient admitted with hyponatremia.
Sodium level on admission: 123
08/10 PN, 'Worsening encephalopathy...-Patient hypothyroidism likely playing a role here'
Please clarify the type of encephalopathy:
Acute Metabolic Encephalopathy
Encephalopathy, other type; please specify
Other
Use of terms such as suspected, likely, concern for, or probable (associated with a specific diagnosis that is being evaluated, monitored, or treated as if it exists) are acceptable and can be coded in the inpatient setting, when documented at the
time of discharge.
Thank you,
Nieves Olivera RN BSN
CDI Specialist
available via tiger text
Please use your independent medical judgment in providing your response.
[2024-08-11] MEDS: NORVASC 5 MG PO (09:18)
[2024-08-11] MEDS: APRESOLINE 25 MG PO ×2 (09:20→20:39)
[2024-08-11] MEDS: COREG 9.375 MG PO ×2 (09:20→20:39)
--- NOTE | 2024-08-11 09:35 | W.PN.CD ---
Addendum entered and electronically signed by Griffin Arndt MD 08/11/24 13:27:
89 yo female with severe , undergoing TAVR eval, paroxysmal A fib (no OAC due to falls) is admitted with confusion, chest pain, acute anemia, hyponatremia, possible UTI. No chest pain since admission. Exam with RRR, III/ systolic murmur at
RUSB, trace LE edema. Tele: SB 50s.
COVID test came back positive PM of 08/10. May explain some of her presentation.
Discussed anemia with hospitalist: plan for heme test of stool.
To discuss TAVR eval with TAVR team.
Chest pain is atypical with normal TnI. Will not plan for cardiac cath.
Original Note:
Today's Communication / Plan
-
-continue Coreg and follow telemetry, BP's
-will update TAVR team on today's updates (Covid19+)
-anemia continues to worsen, but no obvious bleeding- Off Xarelto- may need w/u for this? Defer to primary. Follow closely.
Impression / Plan
-
Chest discomfort:
-denies any further CP. EKG and trop stable. She has known CAD (med management) and severe , with plans for TAVR later this month- TAVR team aware patient is here currently.
-no plan for cath at this time
Aortic stenosis: severe
-Echo 05/24/24: Normal biventricular size and systolic function without regional wall motion abnormality. Severe aortic stenosis. Trivial pericardial effusion. Echocardiogram on 07/15/2023, the gradient across her valve has increased from 50 to over
28 mmHg on the prior study to 60/39 mmHg on the current study. MIKEL was 0.8 cm2 on the prior study and is 0.7 cm2 on the current study.
-TAVR team aware patient is here as above
-CTA for TAVR revealed increased small/moderate right-sided pleural effusion and small left pleural effusion with adjacent atelectasis. Patinet on RA and denies SOB.
COVID-19:
-denies any SOB or cough. on RA.
Hyponatremia:
-remains at 126
-nephrology is following
Hypertension:
-stable
-continue meds and monitor
PAF:
-stable in SR- continue Coreg and follow telemetry
-off Xarelto due to falls
CAD:
-cath 10/02/23:LAD: Moderate calcification with 30% mid LAD stenosis and otherwise diffuse luminal irregularities RCA: Severely calcified vessel with 99% highly calcific angulated stenosis at the crux. The PDA and posterolateral branches fill
antegrade and via fairly well-developed [id number] collaterals.
-was on Xarelto, currently off due to falls
UTI:
-on abx, culture pending
-management per primary team
Anemia:
-hgb continues to drop
-no obvious bleeding
-follow closely- w/u per primary
Patient still with confusion, but denies any CP or SOB, and appears comfortable
Physical Exam
Vital Signs/Labs
Vital Signs
Temp Pulse Resp BP Pulse Ox
99 F 61 18 132/62 93
08/11/24 07:00 08/11/24 09:20 08/11/24 07:00 08/11/24 09:20 08/11/24 07:00
08/10/24 08/11/24 08/12/24
06:59 06:59 06:59
Actual Weight 48.9 kg
08/11/24 07:14
08/11/24 07:14
Triglycerides 108 mg/dl (10-149) 08/10/24 07:24
LDL Cholesterol, Calc 43 mg/dl 08/10/24 07:24
VLDL Cholesterol, Calc 21 mg/dl (0-30) 08/10/24 07:24
HDL Cholesterol 35 mg/dl 08/10/24 07:24
TSH Cancelled 08/09/24 22:54
Free T4 1.54 ng/dl (0.78-2.19) 08/10/24 07:24
LAB Results
08/09/24 08/10/24 08/10/24
20:32 00:23 03:04
Troponin I < 0.012 < 0.012 Cancelled
08/10/24
07:24
Troponin I < 0.012
Physical Exam
Constitutional: No acute distress
EENT: Anicteric
Cardiovascular: Rhythm & rate is regular
Respiratory: Respiratory effort normal and Lungs clear to auscul.
Neuro/Psych: Alert and Other (some confusion continues)
Data Reviewed
-
Date of Service: August 11, 2024
EKG: Other (SB/SR)
Labs: Labs Reviewed by me
[2024-08-11 11:12] LABS: Iron 43 ug/dl (37-170)
[2024-08-11 11:22] LABS: Percent Saturation 20 % (20-50); Total Iron Binding Capacity 214 ug/dl (265-497)
[2024-08-11 11:38] LABS: Free T3 1.98 pg/ml (2.77-5.27)
[2024-08-11 11:56] LABS: Ferritin 66.1 ng/ml (11.1-264.0)
[2024-08-11] MEDS: STERILE WATER FOR INJECTION 10 ML IV (12:21)
[2024-08-11] MEDS: ROCEPHIN 1000 MG IV (12:21)
--- NOTE | 2024-08-11 12:21 | W.PN.NEPH.PH ---
Today's Communication / Plan
-
Samsca
Assessment/Plan
-
Assessment
Hyponatremia
Severe aortic stenosis
UTI
CAD
Plan
Fluid restriction 40 ounces per day
Encourage oral intake
Samsca 15 mg today
Watch BP
-
-
Date of Service: August 11, 2024
CC / HPI / ROS
-
Chief Complaint:
Hyponatremia
History of Present Illness:
Hemoglobin low stable 8.8
sodium remains low 126
BP stable
COVID-positive in isolation
Review of Systems:
No chest pain or shortness of breath
Labs
-
Labs:
WBC 8.8 10^3/uL (4.8-10.8) 08/11/24 07:14
RBC 3.06 10^6/uL (4.20-5.40) L 08/11/24 07:14
Hgb 8.8 g/dL (12.0-16.0) L 08/11/24 07:14
Hct 25.8 % (37.0-47.0) L 08/11/24 07:14
Plt Count 349 10^3/uL (130-400) 08/11/24 07:14
Sodium 126 mmol/L (135-145) L 08/11/24 07:14
Potassium 3.6 mmol/L (3.5-5.1) 08/11/24 07:14
Chloride 95 mmol/L (98-107) L 08/11/24 07:14
Carbon Dioxide 29 mmol/L (22-30) 08/11/24 07:14
BUN 12 mg/dl (7-17) 08/11/24 07:14
Creatinine 0.5 mg/dL (0.6-1.0) L 08/11/24 07:14
eGFR > 60.00 08/11/24 07:14
Glucose 85 mg/dl (70-99) 08/11/24 07:14
Calcium 8.3 mg/dl (8.4-10.2) L 08/11/24 07:14
Albumin 3.4 g/dl (3.5-5.0) L 08/09/24 20:32
Physical Exam
-
Vital Signs:
Vital Signs
Temp Pulse Resp BP Pulse Ox
98.4 F 64 18 125/59 94
08/11/24 11:16 08/11/24 11:16 08/11/24 11:16 08/11/24 11:16 08/11/24 11:16
Cardiovascular:: Regular rate and rhythm
Respiratory:: Bilateral: Coarse
Lung Excursion:: Normal
Abdomen:: Nontender and Soft
Bowel Sounds:: Normal
Extremity Edema:: None: Bilateral:
[2024-08-11] MEDS: SAMSCA 15 MG PO (12:37)
--- NOTE | 2024-08-11 13:11 | CM ---
CM reviewed chart, patient Covid +, call to patients son, Jesse, to complete initial assessment. Per son, patient has been at [facility] for about two weeks, is not paying for a bed hold. Son reports patient has been to [facility]
multiple times in the past. Prior to rehab, patient was residing independently in a three story home in [place], two steps to enter home, patient was able to go up and down stairs, walkers on three levels. Patient PCP Lakisha Brock, pharmacy [facility]. Son would like patient to return to SNF upon discharge, will place referral in [facility].
CM spoke with nurse at [facility], patient was private paying for short term rehab, was not walking at facility- will transfer CM to therapy to review patient baseline- no answer received, will return call to speak with SNF to discuss
patients baseline.
Plan; return to [facility] SNF when stable pending bed availability.
--- NOTE | 2024-08-11 13:29 | W.PN.HOSP.TC ---
Today's Communication/Plan
-
see note
Assessment / Plan
Assessment / Plan
1. Acute hyponatremia
-Urine Na 9, Uosm ~ 425
-Baseline sodium of 135+, came in with sodium of 123
-Maintain 40 ounce fluid restriction
-Not on medication causing hyponatremia
-TSH elevated 19.5, can cause hyponatremia
-Tolvaptan ordered by nephro
2. Chest pain
-No significant ST segment changes on EKG
-Troponin remains negative
-Cardiology following and help appreciated
3. COVID 19 viral infection
-asymptomatic, no treatment needed
-will need minimum 7 days of isolation or per infection prevention dept.
3. Sev
-Pending TAVR next week.
-Cardio will involve TAVR team for Pre-procedure testing
4. Recurrent UTI
r/o UTI
History of vaginal pessary for prolapse
-Patient have history of recurrent urinary tract infection
-UA showing pyuria/bacteriuria although patient not having significant symptom
-Urine culture collected
-Maintained on 3 days of empiric Rocephin for now
5. Worsening encephalopathy
-Patient reported to having some problems with memory/confusion
-Avoid sedating medication
-Although UTI is not a strong suspicion, treating empirically
-Patient hypothyroidism and covid infection likely playing a role here
-B12/folate WNL.
6. Hypothyroidism
-Patient taking 175 mcg levothyroxine daily
-Patient stated of taking levothyroxine first thing in the morning
-TSH 19.5, Free T4 1.54 Free T3 1.98 (low)
-Will avoid increasing dose of levothyroxine further, will require follow-up with endocrinology postdischarge.
7. Paroxysmal atrial fibrillation
-Currently off of Xarelto due to fall problems
8. Normocytic anemia
-Hbg down trended and 8.8 today. was 13 in Jun 18
-No reported melena. Check FOBT
-Check Iron level
Essential hypertension
GERD
Hyperlipidemia
Full code
Discussed with cardiology
Total time spent : 51 mins
Anticipated Discharge: 24 - 48 hours
Subjective/Interval History
-
Date of Service: August 11, 2024
Resting comfortably in bed
Patient frustrated with diagnosis of COVID
Not voicing any issues of sob/cough
Afebrile off oxygen
Objective Data
-
Labs:
Laboratory Results
08/11/24
07:14
WBC 8.8
Hgb 8.8 L
Hct 25.8 L
Plt Count 349
Sodium 126 L
Potassium 3.6
Chloride 95 L
Carbon Dioxide 29
BUN 12
Creatinine 0.5 L
Glucose 85
Calcium 8.3 L
Vital Signs:
Vital Signs
Temp Pulse Resp BP Pulse Ox
98.4 F 64 18 125/59 94
08/11/24 11:16 08/11/24 11:16 08/11/24 11:16 08/11/24 11:16 08/11/24 11:16
I&O
08/10/24 08/11/24 08/12/24
06:59 06:59 06:59
Intake Total 240 / 240
Output Total 400 / 400
Balance -160 / -160
Review of Systems
-
Respiratory: Reports No Symptoms
Cardiac: Reports No Symptoms
Abdomen/GI: Reports No Symptoms
Physical Exam
-
General: No Apparent Distress and Comfortable
HEENT: Negative Oxygen
Respiratory: Clear to Auscultation
Cardiac: Regular Rhythm and S1/S2; Negative Murmur or Rub
GI: Soft, Nontender and Nondistended
Musculoskeletal: No Edema
Neuro: Awake, Alert, Oriented, No Motor Deficits, Nonfocal/Grossly Intact and Other (Forgetful at times)
Psych: Calm
--- NOTE | 2024-08-11 15:08 | CM ---
Addendum entered by RAMIRO Razo 08/11/24 15:11:
*Will also have to call whichever facility patient is DC'ed to to complete pre-op teaching with facility. Following CM to please update this CM regarding disposition*
Original Note:
Patient is planned for TAVR procedure, 08/18.
Collaborated w/ Attending MD and TAVR coordinator, Kiera Garvin. Plan is to DC prior to return for her TAVR.
CM will have to complete pre-op teaching prior to her DC.
Will plan to meet w/ patient at bedside on 08/12 to complete pre-op teaching.
[2024-08-11] MEDS: LIPITOR 10 MG PO (17:09)
[2024-08-12 03:00] VITALS: BP 130/80
[2024-08-12 07:15] VITALS: BP 152/74
[2024-08-12 08:09] LABS: INR 1.12; PT 14.7 Sec (11.4-14.6)
[2024-08-12 08:10] LABS: APTT 22.8 Sec (23.4-35.0)
[2024-08-12 08:15] LABS: Hematocrit 29.4 % (37.0-47.0); Hemoglobin 9.7 g/dL (12.0-16.0); Mean Corpuscular Hgb 28.5 pg (27.0-31.0); Mean Corpuscular Volume 86.5 fL (81.0-99.0); Mean Platelet Volume 8.6 fL (7.4-10.4); Platelet Count 431 10^3/uL (130-400); Red Cell Dist. Width 14.4 % (11.5-14.5); White Blood Cell Count 10.9 10^3/uL (4.8-10.8)
[2024-08-12] MEDS: NORVASC 5 MG PO (08:44)
[2024-08-12] MEDS: COREG 9.375 MG PO (08:44)
[2024-08-12] MEDS: APRESOLINE 25 MG PO (08:44)
[2024-08-12 09:04] LABS: Blood Urea Nitrogen 12 mg/dl (7-17); Calcium 8.7 mg/dl (8.4-10.2); Carbon Dioxide 27 mmol/L (22-30); Chloride 100 mmol/L (98-107); Estimated Creatinine Clearance 48 ml/min; Glucose 91 mg/dl (70-99); Potassium 3.5 mmol/L (3.5-5.1); Sodium 134 mmol/L (135-145); eGFR > 60.00
[2024-08-12 09:08] VITALS: BP 161/64; PULSE 73; O2SAT 97
[2024-08-12 09:09] VITALS: BP 161/64; PULSE 73; O2SAT 97
[2024-08-12 11:24] VITALS: BP 117/59
[2024-08-12] MEDS: STERILE WATER FOR INJECTION 10 ML IV (13:11)
[2024-08-12] MEDS: ROCEPHIN 1000 MG IV (13:11)
--- NOTE | 2024-08-12 13:15 | W.PN.CD ---
Today's Communication / Plan
-
ok for discharge today with continued outpatient workup for anemia, cont. to hold anticoag
will need outpatient follow up with primary vs. renal for management of hyponatremia
plan for outpatient TAVR as early as next week pending stability
Impression / Plan
-
Aortic stenosis: severe
-Echo 05/24/24: Normal biventricular size and systolic function without regional wall motion abnormality. Severe aortic stenosis. Trivial pericardial effusion. Echocardiogram on 07/15/2023, the gradient across her valve has increased from 50 to over
28 mmHg on the prior study to 60/39 mmHg on the current study. MIKEL was 0.8 cm2 on the prior study and is 0.7 cm2 on the current study.
-extensive multidisciplinary discussion of patient today in TAVR meeting; given that patient seems to be back to baseline after treatment of UTI, will plan to proceed with TAVR as scheduled next week
-CTA for TAVR (for measurement clarification) revealed increased small/moderate right-sided pleural effusion and small left pleural effusion with adjacent atelectasis. Patinet on RA and denies SOB.
Chest discomfort:
-denies any further CP. EKG and trop stable. She has known CAD (med management) and severe , with plans for TAVR as above
COVID-19:
-denies any SOB or cough. on RA.
-likely at the tail end of her infection
Hyponatremia:
-improved
-nephrology is following, recommended free water restriction and tolvaptan
Hypertension:
-stable
-continue meds and monitor
PAF:
-stable in SR- continue Coreg and follow telemetry
-off Xarelto due to falls; hand driller t/c LAAO
CAD:
-cath 10/02/23:LAD: Moderate calcification with 30% mid LAD stenosis and otherwise diffuse luminal irregularities RCA: Severely calcified vessel with 99% highly calcific angulated stenosis at the crux. The PDA and posterolateral branches fill
antegrade and via fairly well-developed foot-ht-fuaxr collaterals.
-was on Xarelto, currently off due to falls
-start ASA (will need to be one post TAVR)
UTI:
-on abx, culture pending
-management per primary team
Anemia:
-hgb stabilized
-no obvious bleeding
-follow closely- w/u per primary
Patient significantly improved, no confusion, sitting in radha comfortably, denies any CP or SOB
Physical Exam
Vital Signs/Labs
Vital Signs
Temp Pulse Resp BP Pulse Ox
36.6 C 71 18 117/59 95
08/12/24 11:24 08/12/24 11:24 08/12/24 11:24 08/12/24 11:24 08/12/24 11:24
08/12/24 07:42
08/12/24 07:42
PT 14.7 Sec (11.4-14.6) H 08/12/24 07:42
INR 1.12 08/12/24 07:42
APTT 22.8 Sec (23.4-35.0) L 08/12/24 07:42
Triglycerides 108 mg/dl (10-149) 08/10/24 07:24
LDL Cholesterol, Calc 43 mg/dl 08/10/24 07:24
VLDL Cholesterol, Calc 21 mg/dl (0-30) 08/10/24 07:24
HDL Cholesterol 35 mg/dl 08/10/24 07:24
TSH Cancelled 08/09/24 22:54
Free T4 1.54 ng/dl (0.78-2.19) 08/10/24 07:24
LAB Results
08/09/24 08/10/24 08/10/24
20:32 00:23 03:04
Troponin I < 0.012 < 0.012 Cancelled
08/10/24
07:24
Troponin I < 0.012
Physical Exam
Constitutional: No acute distress
Cardiovascular: Rhythm & rate is regular and Systolic murmur present
Respiratory: Respiratory effort normal
Neuro/Psych: AO x 3
Data Reviewed
-
Date of Service: August 12, 2024
Medical Decision Making: External Notes
EKG: Tracing Personally Visualized and interpreted
X-Ray/CT/US/MRI/NUC/PET: Image Personally Visualized and interpreted
Labs: Labs Reviewed by me
--- NOTE | 2024-08-12 13:34 | W.PN.NEPH.PH ---
Today's Communication / Plan
-
Okay for discharge from renal standpoint/increase protein in her diet as patient is not eating much
Assessment/Plan
-
Assessment
Hyponatremia
Severe aortic stenosis
UTI
CAD
Plan
Fluid restriction 40 ounces per day
Encourage oral intake
Samsca 15 mg status post with improved sodium level
From renal standpoint will be okay for discharge
-
-
Date of Service: August 12, 2024
CC / HPI / ROS
-
Chief Complaint:
Hyponatremia
History of Present Illness:
Hemoglobin low stable 8.8
Sodium normalized
BP stable
COVID-positive in isolation
Review of Systems:
No chest pain or shortness of breath
Labs
-
Labs:
WBC 10.9 10^3/uL (4.8-10.8) H 08/12/24 07:42
RBC 3.40 10^6/uL (4.20-5.40) L 08/12/24 07:42
Hgb 9.7 g/dL (12.0-16.0) L 08/12/24 07:42
Hct 29.4 % (37.0-47.0) L 08/12/24 07:42
Plt Count 431 10^3/uL (130-400) H D 08/12/24 07:42
Sodium 134 mmol/L (135-145) L D 08/12/24 07:42
Potassium 3.5 mmol/L (3.5-5.1) 08/12/24 07:42
Chloride 100 mmol/L (98-107) 08/12/24 07:42
Carbon Dioxide 27 mmol/L (22-30) 08/12/24 07:42
BUN 12 mg/dl (7-17) 08/12/24 07:42
Creatinine 0.5 mg/dL (0.6-1.0) L 08/12/24 07:42
eGFR > 60.00 08/12/24 07:42
Glucose 91 mg/dl (70-99) 08/12/24 07:42
Calcium 8.7 mg/dl (8.4-10.2) 08/12/24 07:42
Albumin 3.4 g/dl (3.5-5.0) L 08/09/24 20:32
Physical Exam
-
Vital Signs:
Vital Signs
Temp Pulse Resp BP Pulse Ox
97.9 F 71 18 117/59 95
08/12/24 11:24 08/12/24 11:24 08/12/24 11:24 08/12/24 11:24 08/12/24 11:24
Cardiovascular:: Regular rate and rhythm
Respiratory:: Bilateral: Coarse
Lung Excursion:: Normal
Abdomen:: Nontender and Soft
Bowel Sounds:: Normal
Extremity Edema:: None: Bilateral:
--- NOTE | 2024-08-12 13:55 | W.PN.HOSP.TC ---
Addendum entered and electronically signed by Uriel Holm MD 08/14/24 14:43:
Add on to diagnosis list
Acute metabolic encephalopathy
Original Note:
Today's Communication/Plan
-
d/c planning for snf rehab
Assessment / Plan
Assessment / Plan
1. Acute hyponatremia
-Urine Na 9, Uosm ~ 425
-Baseline sodium of 135+, came in with sodium of 123
-Maintain 40 ounce fluid restriction
-Not on medication causing hyponatremia
-TSH elevated 19.5, can cause hyponatremia
-s/p x1 tolvaptan dose
2. Chest pain
-No significant ST segment changes on EKG
-Troponin remains negative
-Cardiology following and help appreciated
3. COVID 19 viral infection
-asymptomatic, no treatment needed
-will need minimum 7 days of isolation or per infection prevention dept.
3. Severe
-TAVR team evaluated and patient is planned to get procedure next week.
-Cardio recommended
4. Recurrent UTI
r/o UTI
History of vaginal pessary for prolapse
-Patient have history of recurrent urinary tract infection
-UA showing pyuria/bacteriuria although patient not having significant symptom
-Urine culture no growth
-Send reported vaginal pessary was changed recently after 4 years.
-Finished 3 days of empiric Rocephin for now
5. Worsening encephalopathy
-Patient reported to having some problems with memory/confusion
-Avoid sedating medication
-Although UTI is not a strong suspicion, treating empirically
-Patient hypothyroidism and covid infection likely playing a role here
-B12/folate WNL.
6. Hypothyroidism
-Patient taking 175 mcg levothyroxine daily
-Patient stated of taking levothyroxine first thing in the morning
-TSH 19.5, Free T4 1.54 Free T3 1.98 (low)
-Will avoid increasing dose of levothyroxine further, will require follow-up with endocrinology postdischarge, discussed with patient son at bedside.
7. Paroxysmal atrial fibrillation
-Currently off of Xarelto due to fall problems
8. Normocytic anemia
-hbg was 13 in Jun 18. tyshawn of 8.8, up to 9.7 today
-No reported melena. FOBT neg.
-Ferritin ~65, TSAT 20%. no indication for iron, should get checked periodically with PCP.
Essential hypertension
GERD
Hyperlipidemia
Full code
Care plan discussed with cardiology/TAVR team
More than 30 minutes spent in discharge including
Final examination of the patient
Summarizing hospital stay
Instructions for continuing care to all relevant caregivers
Preparation of discharge records, prescriptions, and referral forms
Total time spent (in minutes): 39 mins
Anticipated Discharge: Today
Subjective/Interval History
-
Date of Service: August 12, 2024
No issues overnight
Afebrile
No shortness of breath/cough
Objective Data
-
Labs:
Laboratory Results
08/12/24
07:42
WBC 10.9 H
Hgb 9.7 L
Hct 29.4 L
Plt Count 431 H D
PT 14.7 H
INR 1.12
APTT 22.8 L
Sodium 134 L D
Potassium 3.5
Chloride 100
Carbon Dioxide 27
BUN 12
Creatinine 0.5 L
Glucose 91
Calcium 8.7
Vital Signs:
Vital Signs
Temp Pulse Resp BP Pulse Ox
97.9 F 71 18 117/59 95
08/12/24 11:24 08/12/24 11:24 08/12/24 11:24 08/12/24 11:24 08/12/24 11:24
I&O
08/11/24 08/12/24 08/13/24
06:59 06:59 06:59
Intake Total 240 / 240 720 / 720 480 / 480
Output Total 400 / 400
Balance -160 / -160 720 / 720 480 / 480
Review of Systems
-
Respiratory: Reports No Symptoms
Cardiac: Reports No Symptoms
Abdomen/GI: Reports No Symptoms
Physical Exam
-
General: No Apparent Distress and Comfortable
HEENT: Negative Oxygen
Respiratory: Clear to Auscultation
Cardiac: Regular Rhythm and S1/S2; Negative Murmur or Rub
GI: Soft, Nontender and Nondistended
Musculoskeletal: No Edema
Neuro: Awake, Alert, Oriented, No Motor Deficits, Nonfocal/Grossly Intact and Other (Forgetful at times)
Psych: Calm
--- NOTE | 2024-08-12 14:27 | CM ---
CM reviewed chart, patient for discharge today. Auth approved to [facility], 08/12-08/16 auth #[id number], updates to [phone], ambulance auth approved 08/12-08/13 auth #[id number]. Updates to Miriam Farmer at [place].
Phone call to patients son, Jesse, aware of discharge to [facility], 6:00 p.m. IMM verbally reviewed, agreeable to plan, placed in chart. CM updated CM Blade on patient discharge planning.
Plan; [facility], 6:00 p.m. ambulance transport
[facility]
Report: [phone] ext [phone]
[2024-08-12 15:37] LABS: LDH 181 U/L (120-246)
[2024-08-12 15:40] VITALS: BP 120/57
--- NOTE | 2024-08-12 15:56 | CM ---
CV JUAN M collaborated w/ Shellie MCGOWAN; patient for DC to SNF today.
Met w/ patient at bedside to complete pre-op teaching. Teaching limited due to mental status.
Provided soap, shower instructions and TAVR booklet.
Bag will be sent to SNF with patient per RN.
Call to Jesse segundo, c: [phone]. Explained to Jesse, pre and post op routines.
Reviewed post op restrictions to include lifting, driving restrictions (pt. does not drive).
Reviewed post op MD appointment, Cardiac Rehab.
Also spoke w/ Nathan OLIVO @ [facility]. [phone] [id number]. Reviewed pre and post op routines w/ Nathan.
Will fax shower instructions, medication instructions/ arrival time.
Per discussion w/ son; patient typically resides alone in a private split level home. Pt. is typically ambulatory with use of a RW; has RWs on all levels.
Pt. has been in a pattern of being at home, falling and then admitting to SNF @ [facility].
Pt. is limited in ambulation currently because she is fearful of falling.
DC plan next week will be for return to SNF per Jesse segundo.
Plan for TAVR 08/18
DC plan is to return to SNF/ [facility]/ [facility].
--- NOTE | 2024-08-13 13:59 | W.DCSUMMARY ---
Discharge Summary
Discharge Data
Date of Admission: 08/09/24
Date of Discharge: 08/12/24
-
Pending Results: No
Hospital Course
Discharging Physician : Dr Uriel Holm
Disposition : To home
Primary care physician : Dr Lakisha Brock
Principal Discharge diagnosis :
Acute hyponatremia
Chest pain
COVID-19 viral infection
Severe aortic stenosis
Possible urinary tract infection
Metabolic encephalopathy
Normocytic anemia
Hypothyroidism
Chronic Discharge diagnosis :
Paroxysmal atrial fibrillation
Essential hypertension
Gastroesophageal reflux disease
Hyperlipidemia
Hospital Course :
Patient is 89-year-old female with above-mentioned past medical history was brought into ER for having new onset of chest pain. Patient does not remember any episodes and according to family patient was noted to be more confused for some time.
In ER evaluation showing patient was hyponatremic with sodium down to 123 from normal baseline of 135+2 months back. Nephrology was involved in care and urine studies were collected. As part of workup TSH level were checked and was found to be
elevated at 19.5. Free T4 was within normal limit and free T3 was decreased. Patient was felt to having euvolemic hyponatremia and was maintained on fluid restriction. Patient required 1 dose of tolvaptan. Patient noted on significant dose of
levothyroxine which patient stated of taking it regularly fasting in the morning. Patient would benefit with follow-up with endocrinology in office for further assessment of abnormal thyroid function tests.
For patient chest pain cardiology was involved in care, EKG and serial troponins were negative. Cardiology was initially considering left heart catheterization although with no recurrence of symptoms this was deferred for this admission.
Patient encephalopathy likely was felt to be under-controlled hypothyroidism although during further workup patient was incidentally found to be COVID-positive as well. Patient was completely asymptomatic from pulmonary symptoms perspective. No
treatment required for COVID this admission. Patient also had questionable UA and was provided short course of IV antibiotic for UTI.
Patient also noted to be anemic. Iron studies were relatively normal. Hemoccult test on stool was negative as well. Patient have severe for which patient is pending TAVR next week. LDH level was checked and was normal as well. Reason for
anemia remains unclear at this point, this needs to be followed up with further testing if not improved. Of note cardiology has decided for patient to be taken off of Xarelto and switch to baby aspirin only. This was discussed with TAVR
coordinator as well.
Important imaging findings :
None
Procedure findings :
None
Discharge Plan
-
Patient Disposition: Jail/SNF
Discharge Diagnosis/Procedures: Acute hyponatremia, Chest pain, COVID 19 viral infection - asymptomatic, UTI
Condition: Fair
Diet: Low Cholesterol and Other diet
Additional Diets: 40 Oz fluid restriction
Activity: As tolerated
Driving Restrictions: No driving
Bathing Restrictions: OK to Shower
Referrals:
Lakisha Brock MD [Family Provider] - in one week
Additional Discharge Medication Instructions: STOP xarelto. Started Aspirin 81mg/d
Prescriptions:
New
aspirin 81 mg tablet,chewable
81 mg PO DAILY Qty: 30 0RF
Continued
levothyroxine 175 MCG tablet
175 mcg PO DAILY@0700
carvedilol 6.25 MG tablet
9.375 mg PO BID
lisinopril 20 MG tablet
20 mg PO BID
simvastatin 10 MG tablet
10 mg PO QPM
hydralazine 25 MG tablet
25 mg PO BID
amlodipine 5 MG tablet
5 mg PO BID
pantoprazole [Protonix] 20 MG tablet,delayed release (DR/EC)
20 mg PO DAILY
Premarin 1 APPLIC cream
1 applic vaginal DAILY
cholecalciferol (vitamin D3) 1,000 UNITS tablet
1,000 units PO DAILY
Caltrate-D3 Plus Minerals 1 EACH tablet
1 ea PO BID
fluorouracil 5 % Cream
1 applic TOPICAL QPM
solifenacin [Vesicare] 10 mg Tablet
10 mg PO DAILY
nitroglycerin 0.4 mg tablet, sublingual
0.4 mg sublingual [id number] PRN (Reason: chest pain) Qty: 25 5RF
Discontinued
Xarelto 20 MG tablet
20 mg PO QPM
Discharge Orders:
Discharge Patient (As Directed); Ordered 08/12/24
Ordered By: Uriel Holm
Care Plan Goals
Care Plan Goals:
Problem: Readiness for enhanced knowledge related to diagnosis and treatment plan
Goal: Understand your diagnosis and treatment plan needs, including medications if applicable.
Instructions: Know your diagnosis, underlying causes and treatment plan options, including medications if applicable. Consult with your health care team to learn about your diagnosis and treatment plan, including medications if applicable.
Discharge Date and Time
Discharge Date/Time: 08/12/24 17:22
Print Language: CHILEAN
== END 2024-08-12 17:22 | DRG 70 ==
LOC: 4 WEST ACU 23:43
PROVIDERS: Nurse Practitioner Acute Care; ADMITTING PHYSICIAN Internal Medicine; ATTENDING PHYSICIAN Hospitalist; CONSULT PHYSICIAN Specialist; EMERGENCY PHYSICIAN Emergency Medicine; FAMILY PHYSICIAN Internal Medicine; REFERRING PHYSICIAN Internal Medicine
DX: G93.41 Metabolic encephalopathy (principal); U07.1 COVID-19; N39.0 Urinary tract infection, site not specified; E87.1 Hypo-osmolality and hyponatremia; E87.8 Other disorders of electrolyte and fluid balance, not elsewhere classified; I35.0 Nonrheumatic aortic (valve) stenosis; I50.9 Heart failure, unspecified; I11.0 Hypertensive heart disease with heart failure; E03.9 Hypothyroidism, unspecified; I25.10 Atherosclerotic heart disease of native coronary artery without angina pectoris; Z79.899 Other long term (current) drug therapy; I48.0 Paroxysmal atrial fibrillation; D64.9 Anemia, unspecified; K21.9 Gastro-esophageal reflux disease without esophagitis; E78.00 Pure hypercholesterolemia, unspecified; Z79.01 Long term (current) use of anticoagulants
CPT/HCPCS: 70450; 75572; 80048; 80053; 80061; 80307; 81003; 81015; 82570; 82607; 82728; 82746; 83036; 83540; 83550; 83615; 83930; 83935; 84300; 84439; 84443; 84481; 84484; 85025; 85027; 85610; 85730; 86850; 86900; 86901; 87077; 87086; 87088; 87186; 87811; 93005; 97163; 97167; 97530; Q9967

== ENCOUNTER 2024-08-18 09:48 | Inpatient (IN) | payer OTHER, SELFPAY ==
--- NOTE | 2024-08-12 16:06 | CM ---
CV JUAN M collaborated w/ Shellie MCGOWAN; patient for DC to SNF today.
Met w/ patient at bedside to complete pre-op teaching. Teaching limited due to mental status.
Provided soap, shower instructions and TAVR booklet.
Bag will be sent to SNF with patient per RN.
Call to Jesse segundo, c: [phone]. Explained to Jesse, pre and post op routines.
Reviewed post op restrictions to include lifting, driving restrictions (pt. does not drive).
Reviewed post op MD appointment, Cardiac Rehab.
Also spoke w/ Nathan OLIVO @ [facility]. [phone]. Reviewed pre and post op routines w/ Nathan.
Will fax shower instructions, medication instructions/ arrival time.
Per discussion w/ son; patient typically resides alone in a private split level home. Pt. is typically ambulatory with use of a RW; has RWs on all levels.
Pt. has been in a pattern of being at home, falling and then admitting to SNF @ [facility].
Pt. is limited in ambulation currently because she is fearful of falling.
DC plan next week will be for return to SNF per Jesse segundo.
Plan for TAVR 08/18
DC plan is to return to SNF/ [facility]/ [facility].
[2024-08-18] VITALS (23 sets, daily range): BP systolic 83–138; BP diastolic 52–100; BMI 21.8
--- NOTE | 2024-08-18 10:40 | PTCARENOTE ---
Dr Juan aware admission temperature is 99.7. Pt denies symptoms, + COVID on 08/10/24.
--- NOTE | 2024-08-18 10:49 | CM ---
Patient in OR today for planned TAVR.
Reviewed pre-admission assessment. Pt. comes from SNF @ [facility].
DC plan will be to return there @ [place] for continued therapy. Authorization rehebert'd.
CM to follow.
--- NOTE | 2024-08-18 11:05 | PTCARENOTE ---
Dr Samano aware admission temperature is 99.7. Pt denies symptoms, + COVID on 08/10/24.
--- NOTE | 2024-08-18 11:05 | PTCARENOTE ---
Pt unable to verifiy medication list or last dose taken, staff called at [facility] and message left, awaiting call back
--- NOTE | 2024-08-18 11:35 | PTCARENOTE ---
Dr Ware aware admission temperature is 99.7. Pt denies symptoms, + COVID on 08/10/24.
[2024-08-18] MEDS: ANCEF 10 IV ×2 (13:43)
[2024-08-18 14:54] LABS: ACT-LR - POC 219 Seconds (116-155)
[2024-08-18 15:04] LABS: ACT-LR - POC 319 Seconds (116-155)
--- NOTE | 2024-08-18 15:15 | W.CVOR.SURPR ---
CVOR Surgeon Immed Pre Op
-
I have examined this patient prior to performance of the scheduled procedure.
The patient's condition is unchanged from the time of the dictated/written History and
Physical and the patient is able to undergo the scheduled procedure.
--- NOTE | 2024-08-18 15:16 | W.IMMPOSTOP ---
Surgical Immed Post Op Note
-
[id number]
STRUCTURAL HEART PROCEDURE NOTE: TAVR
Preoperative Dx:
Severe aortic stenosis (P/M: 60/39; MIKEL 0.8, trace AI)
HTN/HLD
Hypothyroidism
Squamous cell carcinoma
PAF
PVCs
Factor V Leiden
Anemia
Recent COVID
Recurrent UTIs
Postoperative Dx:
Same
Procedures:
1) L CFV access w/ U/S and fluoroscopic guidance, seldinger technique, long 6Fr sheath placement
2) L FINANCIAL DEALERS access w/ tactile, U/S, and fluoroscopic guidance, seldinger technique, long 6Fr sheath placement
3) Placement of temporary RV pacing wire w/ threshold testing
4) Placement of pigtail catheter in RCC w/ limited aortography & confirmation of co-planar valve deployment angles
5) R [employer] access w/ tactile, U/S, and fluoroscopic guidance, micropuncture technique, limited angiography, 8Fr dilator placement
6) Perclose placement x 2 into R [employer], 8Fr sheath placement
7) Placement of Owen E-sheath via R [employer] access
8) Wire purchase across stenotic AV; LVEDP assessment
9) R TF TAVR w/ placement of 23mm MOISÉS 3 valve
10) Completion aortography
11) Completion TTE (mean gradient 6mmHg, trace PVL)
12) Removal of valve delivery system/Owen E-sheath w/ R [employer] mgmt w/ perclose sutures x 2; manual pressure
13) Completion R ileofemoral angiography
14) Removal of temporary pacing wire
15) Limited L ileofemoral angiography
16) Removal of L [employer] 6Fr sheath w/ mgmt w/ 6Fr angioseal; manual pressure
17) Removal of L CFV 6Fr sheath w/ mgmt w/ manual pressure
Cardiac Surgeon:
Ricardo Ware M.D.
Cabin Service Agent:
Tez Samano M.D.
Anesthesia:
MAC & local to B/L groins
Implants:
Perclose x 2 to R [employer]
6Fr angioseal x 1 to L [employer]ANCIAL DEALERS
Owen [employer], 23mm MOISÉS 3 valve; SN: [id number]
Cath Data:
Start: 1421hrs, Deploy: 1457hrs, End: 1515hrs
FT: 11.8min, mGy: 134.60, DAP: 15.7644, Contrast: 60mL
Post-TTE: mean gradient 6mmHg, trace PVL
LVEDP: 22mmHg
Complications:
New BBB
Condition:
Stable/guarded to recovery
[2024-08-18] MEDS: LEVOPHED 250 IV (15:38)
--- NOTE | 2024-08-18 18:16 | ITS.CL.PN ---
Machine Stuffer - Procedure Note
Procedure
Procedure Note:
TRANSCATHETER AORTIC VALVE REPLACEMENT REPORT
Date of Procedure: 08/18/2024
Referring: Dr. Tucker Arndt MD, PhD
Indication: Severe aortic stenosis
Operators: Tez Samano MD, PhD (interventional cardiology); Dr. Ricardo Ware MD (CT surgery)
Anesthesia: conscious sedation provided by the anesthesia staff
PROCEDURE: transfemoral, transcatheter aortic valve replacement with a Owen MOISÉS S3 ultra 23 mm valve
ACCESS:
1. 6F left femoral vein (closure: manual hemostasis)
2. 6F left common femoral artery (closure: Angioseal)
3. 14 F right common femoral artery (closure: Perclose x2)
ULTRASOUND GUIDED VASCULAR ACCESS (left femoral vein): Ultrasound was utilized for vascular access. The vessel was visualized under ultrasound and noted to be patent. An image of the vessel was stored permanently in the patient's medical record.
Under direct ultrasound guidance, vascular access was obtained using a modified Seldinger technique and a 6 Syriac sheath was placed.
ULTRASOUND GUIDED VASCULAR ACCESS (left common femoral artery): Ultrasound was utilized for vascular access. The vessel was visualized under ultrasound and noted to be patent. An image of the vessel was stored permanently in the patient's medical
record. Under direct ultrasound guidance, vascular access was obtained using a modified Seldinger technique and a 6 Syriac sheath was placed.
ULTRASOUND GUIDED VASCULAR ACCESS (right common femoral artery): Ultrasound was utilized for vascular access. The vessel was visualized under ultrasound and noted to be patent. An image of the vessel was stored permanently in the patient's medical
record. Under direct ultrasound guidance, vascular access was obtained using a modified Seldinger technique and a 8 Syriac sheath was placed.
HEMODYNAMIC DATA
LVEDP 22 mmHg
PROCEDURE NARRATIVE:
The patient was prepped and draped in standard sterile fashion. Conscious sedation was provided by the anesthesia staff. 6F left femoral vein and left common femoral artery access was obtained with ultrasound guidance using micropuncture technique
with verification of appropriate arteriotomy location via hand injection angiography. A temporary venous pacing wire was advanced via the left femoral vein to the right ventricle under fluoroscopic guidance with appropriate capture verified. A 5F
pigtail catheter was advanced via the left common femoral artery and seated in the right coronary cusp. Angiography was performed to verify the co-planar angle.
8F right common femoral artery access was obtained with ultrasound guidance using micropuncture technique with verification of appropriate arteriotomy location via hand injection angiography. The arteriotomy was preclosed with two Perclose sutures
followed by replacement of the 8F sheath. Using an AL1 catheter, an Amplatz Extrastiff wire was placed in the descending thoracic aorta. The 8F sheath was removed and the 14 F Owen E-sheath was inserted over the Extrastiff wire and into the
descending aorta. Heparin 5000 units was given. The AL1 catheter was re-advanced through the E-sheath to the level of the ascending aorta. The Extrastiff wire was exchanged for a soft tipped straight wire which was used to cross the aortic valve and
deposit the AL1 in the LV apex. A J-wire was used to exchange the AL1 for a pigtail catheter in the LV and LVEDP was measured. An Amplatz Extrastiff wire with curved proximal end was advanced through the pigtail catheter and seated in the LV apex.
ACT was checked and confirmed to be >300 seconds.
The valve was brought to the table with orientation and deployment contrast volume verified. The valve was advanced over the Extrastiff wire and into the descending aorta. The balloon was withdrawn, and the valve was mounted on the balloon. The
valve was advanced over the aortic arch and into the aortic valve annulus. The pusher device was withdrawn. Low volume aortography confirmed valve positioning. The valve was deployed during rapid ventricular pacing. The balloon was walked back to
the descending aorta while leaving the wire in place. The patient was resuscitated by anesthesia with recovery of adequate blood pressure. Telemetry demonstrating sinus rhythm with new left bundle branch block. Aortography demonstrated good valve
positioning, adequate coronary filling, and no significant aortic valve insufficiency. Echocardiography demonstrated trace to mild aortic insufficiency. Mean valve gradient was 6 mmHg. The valve deployment system was removed.
The Owen E sheath was removed, and hemostasis obtained with the two Perclose sutures. Protamine 40 mg was given. Aortoiliac angiography demonstrated no evidence of iliofemoral dissection/perforation and good runoff below the common femoral artery
bilaterally. The pacemaker and the pigtail catheter were removed. The left femoral artery sheath was removed using a 6F Angioseal. The left femoral venous sheath was removed with manual pressure.
RADIATION: dose 134.60 mGy; DAP 15.7644 Gy*cm2; fluoroscopy time 11.8 min
CONCLUSION: successful placement of a Owen MOISÉS S3 ultra 23 mm transcatheter aortic valve via right transfemoral approach with no acute complications
Copy to: Dr. Tucker Arndt MD, PhD (tsa screener); Dr. Lakisha Brock MD (PCP)
Signed: Tez Samano MD, PhD
--- NOTE | 2024-08-18 18:49 | PTCARENOTE ---
Received patient from the PACU at 1730 after TAVR procedure. Patient is AAO but needs reminding to keep her head on the pillow, reinforced restrictions. Bilateral groin sites are clean, dry and intact with DP pulses palpable. Neuro status within
normal limits, bed alarm placed for patient safety. Family were in to visit, call bernabe at the bedside and patient reminded of being flat in bed until 1725.
[2024-08-18] MEDS: LIPITOR 10 MG PO (20:26)
[2024-08-18] MEDS: ANCEF 5 IV (20:26)
[2024-08-19] VITALS (16 sets, daily range): BP systolic 91–144; BP diastolic 51–88; PULSE 71; O2SAT 93; BMI 20.2
--- NOTE | 2024-08-19 01:53 | PTCARENOTE ---
Pt. rec'd this shift AAOx3, answers questions appropriately but is forgetful; generalized weakness assessed (strength equal bilaterally, but legs weaker compared to arms, see neuro check documentation). NSR on the monitor. B/L groin site dressings
with small amount old drainage present (no new growth), no hematoma assessed, Doppler pedal pulses present. Incontinent of urine. Pt. sleeps when left alone but rouses easily. Able to sit up and eat dinner with assist. Currently sleeping, bed
alarm on for safety.
[2024-08-19 04:21] LABS: Hematocrit 27.9 % (37.0-47.0); Hemoglobin 9.4 g/dL (12.0-16.0); Mean Corp Hgb Conc. 33.7 g/dL (33.0-37.0); Mean Corpuscular Hgb 28.8 pg (27.0-31.0); Mean Corpuscular Volume 85.6 fL (81.0-99.0); Mean Platelet Volume 8.6 fL (7.4-10.4); Platelet Count 278 10^3/uL (130-400); Red Blood Cell Count 3.26 10^6/uL (4.20-5.40); Red Cell Dist. Width 14.7 % (11.5-14.5); White Blood Cell Count 12.7 10^3/uL (4.8-10.8)
[2024-08-19 05:01] LABS: Blood Urea Nitrogen 16 mg/dl (7-17); Calcium 8.9 mg/dl (8.4-10.2); Carbon Dioxide 25 mmol/L (22-30); Chloride 103 mmol/L (98-107); Estimated Creatinine Clearance 43 ml/min; Glucose 113 mg/dl (70-99); Potassium 4.6 mmol/L (3.5-5.1); Sodium 134 mmol/L (135-145); eGFR > 60.00
[2024-08-19] MEDS: SYNTHROID 175 MCG PO (06:17)
--- NOTE | 2024-08-19 07:39 | W.PN.CT ---
Today's Communication / Plan
-
-pod #1
-no issues overnight
-new LBBB resolved, has 1st degree AVB. Coreg held
-in nsr high 50s- 60s overnight. No significant abby or pauses.
-Echo today
-current meds (ASA, Lipitor, Protonix, Synthroid)
-encourage IS, ambulate
Assessment / Plan
-
- Severe symptomatic stenosis - s/p R TF TAVR w/ placement of 23mm MOISÉS 3 valve on 08/18/24, pod #1
- Post-TTE: mean gradient 6mmHg, trace PVL
- HTN/HLD
- Hypothyroidism
- Squamous cell carcinoma
- PAF
- Hx multiple falls
- HTN/HLD
- PVCs
- Factor V Leiden
- Chronic Anemia
- Recent COVID
- Recurrent UTIs
- Acute on chronic diastolic CHF, LVEDP 22
- Acute postop LBBB, 1st degree AVB
Discussed patient care with: Nursing and Care Team
Subjective
-
Date of Service: August 19, 2024
Objective Data
Vital Signs
Vital Signs
Temp Pulse Resp BP Pulse Ox
98.1 F 57 18 93/53 96
08/18/24 22:27 08/19/24 00:27 08/18/24 22:27 08/19/24 00:27 08/18/24 22:27
CT Intake/Output/Weight
08/18/24 08/18/24 08/19/24
06:59 18:59 06:59
Intake Total 1200 / 1200
Balance 1200 / 1200
SaO2: 96
Physical Exam
-
General: Awake and AOx3
Cardiovascular: Regular rate & rhythm, Murmur (1/6 systolic @ lsb) and No Rub
Respiratory: Clear and Decreased Breath Sounds
Incision: Other (groins are cdi, soft, nontender, no hematoma b/l)
Extremities: No Edema (DPs 1+ b/l)
Abdomen: soft, nontender, nondistended, + bowel sounds
Data Reviewed
-
Lab Results: Results Reviewed
Medications: Active Meds Reviewed
Chest X-Ray: Report Reviewed and Image Reviewed
ECG: Report Reviewed and Image Reviewed
--- NOTE | 2024-08-19 08:47 | W.DCSUMMARY ---
Discharge Summary
Discharge Data
Date of Admission: 08/18/24
Date of Discharge: 08/19/24
Total time spent discharging patient (in min): 35
-
Pending Results: No
Hospital Course
Primary care physician:
Dr. Brock
Outpatient sample case porter:
Dr. Arndt
Inpatient consultants:
CBC, urology
Procedures:
1. R TF TAVR w/ placement of 23mm MOISÉS 3 valve
Primary Diagnosis:
1. Severe aortic stenosis
Secondary Diagnoses:
1. Recurrent UTIs
2. Recent COVID infection
3. Hypertension
4. Hyperlipidemia
5. Hypothyroidism
6. Paroxysmal atrial fibrillation
7. Factor V Leiden
8. Anemia
9. Postoperative left bundle branch block (resolved)
HPI: 89-year-old female who was recently in the hospital due to a UTI and COVID-19 infection was found to have severe aortic stenosis and represented on 08/18 for a transcatheter aortic valve replacement with Dr. Ware.
Hospital course:
Patient was electively admitted on 08/18 for a transcatheter aortic valve replacement with Dr. Ware. 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 B/l
groins remain stable. She was sent to IVU for the remainder of their recovery. On 08/19, POD #1, B/L groins remained stable and morning EKG showed a left bundle branch block that resolved. Repeat TTE showed a peak/mean gradient of 19/10mmHg and EF
65%. Patient was noted to have foul smelling urine and a passery. Urology was consulted and recommended outpatient follow up and patient was started on ciprofloxacin for 5 days base on UA results. She was deemed stable for discharge with a rhythm
star heart monitor due to her transient left bundle branch block.
Home medication changes:
See below
Discharge Plan
-
Patient Disposition: Shelter/SNF
Discharge Diagnosis/Procedures: 08/18 RTF-TAVR #23mm Sapien3
Condition: Fair
Diet: Low Cholesterol and 2 Gram Sodium
Activity: As tolerated
Driving Restrictions: No driving for 1 week
Bathing Restrictions: OK to Shower
Others Tests: 30 Day Follow Up Echocardiogram: 09/19/2024 at 10:20am at the [facility]
Other Services: Cardiac Rehab
Wound Care: Please do not apply lotions, creams or powders to groin areas. Monitor for increased pain, redness, swelling or drainage. Call your doctor if any occur.
Specialty Instructions: Weigh Daily- Call MD for wt gain/loss 3 lbs overnight/5 lbs in 1 week
Referrals:
[facility] [Other] ( )
Mariela Michaels CRNP [Specified Professional Personl] - 09/21/24 11:20 am
Lakisha Brock MD [Family Provider] -
Blayne Arreaga MD [Active] - in one week
Additional Discharge Medication Instructions: Stop Coreg
please take ciprofloxain 250mg BID for 5 days
Prescriptions:
New
acetaminophen 325 mg Tablet
650 mg PO Q4HPRN PRN (Reason: PORTILLO, mild pain, or fever >101F) Qty: 0 0RF
Continued
levothyroxine 175 MCG tablet
175 mcg PO HS
simvastatin 10 MG tablet
10 mg PO QPM
amlodipine 5 MG tablet
5 mg PO BID
Premarin 1 APPLIC cream
1 applic vaginal MOTH
cholecalciferol (vitamin D3) 1,000 UNITS tablet
1,000 units PO QPM
Caltrate-D3 Plus Minerals 1 EACH tablet
1 ea PO QPM
solifenacin [Vesicare] 10 mg Tablet
10 mg PO DAILY
nitroglycerin 0.4 mg tablet, sublingual
0.4 mg sublingual [id number] PRN (Reason: chest pain) Qty: 25 5RF
tolterodine 4 mg Capsule,Extended Release 24hr
4 mg PO DAILY
sorbitol 70 % Solution
30 ml PO Q48H
omeprazole 20 mg Capsule,Delayed Release(Dr/Ec)
20 mg PO DAILY
aspirin 81 mg tablet,chewable
81 mg PO DAILY Qty: 30 0RF
ciprofloxacin HCl 250 mg Tablet
250 mg PO BID 5 Days Qty: 10 0RF
Held
hydralazine 25 MG tablet
25 mg PO BID
Hold Instructions: Hold until BP is >130
lisinopril 20 mg Tablet
20 mg PO BID
Hold Instructions: Hold until BP is >130
Discontinued
carvedilol 6.25 MG tablet
9.375 mg PO BID
acetaminophen 325 mg Tablet
650 mg PO BID
Rx Instructions:
give for pain x14 days
Discharge Orders:
Discharge Patient (As Directed); Ordered 08/19/24
Ordered By: Leelee Dutta
Care Plan Goals
Care Plan Goals:
Problem: Readiness for enhanced knowledge related to diagnosis and treatment plan
Goal: Understand your diagnosis and treatment plan needs, including medications if applicable.
Instructions: Know your diagnosis, underlying causes and treatment plan options, including medications if applicable. Consult with your health care team to learn about your diagnosis and treatment plan, including medications if applicable.
Discharge Date and Time
Print Language: MALAWIAN
[2024-08-19] MEDS: DETROL LA 4 MG PO (09:07)
[2024-08-19] MEDS: PROTONIX 20 MG PO (09:07)
[2024-08-19] MEDS: LOW STRENGTH ASPIRIN 81 MG PO (09:08)
[2024-08-19] MEDS: VITAMIN D3 (cholecalciferol) 25 MCG PO (09:08)
--- NOTE | 2024-08-19 09:15 | W.PN.ANS.POP ---
Anesthesia Post Operative
- Anesthesia Post Op Note
Vital Signs Stable-See Nursing Note: Yes
Airway Patent: Yes
Adequate Pain Control: Yes
Change in Mental Status: No
Current Postoperative Nausea & Vomiting: No
Anesthesia Complications: No
General Anesthetic Recall: No
Unplanned Admission: No
Post Op Hydration Adequate: Yes
[2024-08-19 12:58] LABS: Urine Albumin 2+ (Neg - Trace); Urine Bilirubin Negative (Negative); Urine Character Cloudy (Clear); Urine Color Yellow; Urine Glucose Negative (Negative); Urine Ketone 1+ (Negative); Urine Leukocyte 3+ (Negative); Urine Nitrite Negative (Negative); Urine Occult Blood 2+ (Negative); Urine Specific Gravity 1.015 (<1.030); Urine Urobilinogen Negative (Neg - 1+)
[2024-08-19 13:11] LABS: Urine Red Blood Cell 0-2 /HPF (0-2); Urine Squamous Cell 0-2 /LPF (Few)
[2024-08-19 13:12] LABS: Urine Bacteria Many (Negative); Urine White Cell 60-70 /HPF (0-5)
--- NOTE | 2024-08-19 13:23 | W.PN.UPDATE ---
Update Note
Progress Note Update
Request to send Rhythm Star monitor home with patient and apply after discharge. Reviewed the monitor with patient. Reviewed how to turn on, charge, report symptoms and return the monitor after 14 days. Allowed for and answered questions. Monitor
left at bedside. Nurse made aware. She will make skilled facility aware that patient will have monitor when report is given.
--- NOTE | 2024-08-19 14:46 | W.PN.CD ---
Today's Communication / Plan
-
rhythm star monitor
uro consult
standard post-TAVR protocol otherwise
Impression / Plan
-
89 year old woman with severe aortic stenosis, recent falls, recurrent UTIs, CAD, now POD#1 after scheduled transfemoral TAVR (Chicho S3 Ultra 23 mm valve from right femoral artery, Chaz/[place]). Patient tolerated the procedure well. Had
transient left bundle branch block that resolved.
Overnight no significant events.
No compliants
Groin CDI. RRR. CTAB.
Sinus rhythm on tele.
Labs notable for stable CBC, BMP
EKG SR with WA prolongation
Echo with mean gradient 10, normal valve appearance, normal LVEF.
Overall doing well POD#1 status post TAVR.
Plans:
Discharge with psychometrician given transient LBBB and 1st degree AVB
Uro consult to evaluate pessary (possible cause of her recurrent UTIs)
Outpatient post-TAVR follow up per protocol
Cont. ASA
Outpatient follow up with Dr. Arndt
Physical Exam
Vital Signs/Labs
Vital Signs
Temp Pulse Resp BP Pulse Ox
37.1 C 73 14 144/68 96
08/19/24 11:26 08/19/24 12:30 08/19/24 11:26 08/19/24 11:14 08/19/24 12:55
08/18/24 08/19/24 08/20/24
06:59 06:59 06:59
Actual Weight 45.4 kg
08/19/24 03:45
08/19/24 03:45
Physical Exam
Constitutional: No acute distress
Cardiovascular: Rhythm & rate is regular
Respiratory: Respiratory effort normal
Neuro/Psych: AO x 3
Data Reviewed
-
Date of Service: August 19, 2024
Medical Decision Making: External Notes
EKG: Tracing Personally Visualized and interpreted
Echo: Tracing Personally Visualized and interpreted
Labs: Labs Reviewed by me
[2024-08-19] MEDS: LIPITOR 10 MG PO (17:46)
--- NOTE | 2024-08-19 18:32 | PTCARENOTE ---
Pt straight cath'd for urine sample after 2 attempts, oral antibiotic ordered based on results to be started at [facility] tonight. Pt seen by PT today, unable to stand, pt has recently been wheelchair bound. Pt denies any discomfort today, turned from
side to side in bed. Protective foam on her sacrum and heels. Pt with poor appetite but drinking ensure. Echo done at bedside. Telemetry shows sinus rhythm with first degree AV block. Rhythm star monitor activated and placed on pt at time of
discharge, instructions and envelope left with pt and were explained to Prabhjot at [facility]. IV device removed. Report called to Prabhjot at [phone], Ext [phone]. Pt left with [facility] ambulance @18:08, her personal wheelchair went with them. All
DC instructions reviewed with pt's son who stated understanding.
== END 2024-08-19 18:08 | DRG 266 ==
LOC: IVU 09:48
PROVIDERS: Clinical Nurse Specialist Acute Care; Nurse Practitioner; ADMITTING PHYSICIAN Thoracic Surgery (Cardiothoracic Vascular Surgery); FAMILY PHYSICIAN Internal Medicine; OTHER PHYSICIAN Student in an Organized Health Care Education/Training Program
PROC: 02RF38Z Replacement of Aortic Valve with Zooplastic Tissue, Percutaneous Approach (ICD-10-PCS; 2024-08-18)
DX: I35.0 Nonrheumatic aortic (valve) stenosis (principal); I50.33 Acute on chronic diastolic (congestive) heart failure; D68.51 Activated protein C resistance; N39.0 Urinary tract infection, site not specified; I44.7 Left bundle-branch block, unspecified; I44.0 Atrioventricular block, first degree; I11.0 Hypertensive heart disease with heart failure; E78.5 Hyperlipidemia, unspecified; I48.0 Paroxysmal atrial fibrillation; I49.3 Ventricular premature depolarization; D64.9 Anemia, unspecified; E03.9 Hypothyroidism, unspecified; Z87.440 Personal history of urinary (tract) infections; Z86.16 Personal history of COVID-19
CPT/HCPCS: 93308; 33361; 71045; 80048; 81003; 81015; 85027; 85347; 86850; 86900; 86901; 86920; 87077; 87086; 87186; 93005; 93321; 93325; 97163; 97167; C1760; C1769; C1894; Q9967

== ENCOUNTER 2024-08-26 18:45 | Inpatient (IN) | payer OTHER, SELFPAY ==
[2024-08-26] VITALS (12 sets, daily range): BP systolic 80–163; BP diastolic 46–150; BMI 20.2; BMI 19.7
[2024-08-26 13:30] LABS: Glucose - Point of Care 183 mg/dl (70-99)
--- NOTE | 2024-08-26 13:38 | ED.GENMED ---
History of Present Illness
General
Chief Complaint: Change in Mental Status
Source: patient and ambulance crew
Exam Limitations: none
Time Seen by Provider: 08/26/24 13:31
Nursing documentation reviewed up to this point in time: agreed with
History of Present Illness
History of Present Illness:
89-year-old female presents emergency department due to weakness and confusion over the past 8 days. She had some confusion prior to her TAVR on August 18.
Past History
Past History
ED Past Medical History: Arrthythmia, HTN, Hypercholesterolemia and Hypothyroidism
ED Past Surgical History: Other (Cataracts)
Social History
Tobacco: Non-smoker
Alcohol: None
Drug: None
Living: jail
Review of Systems
Review of Systems
Allergies reviewed?: Yes
Unable to obtain full review of systems at this time due to: dementia
Phy Exam
Physical Exam
Physical Exam:
Physical Exam
General: Afebrile
Neck: supple. no meningeal signs. normal posterior pharynx
Heart: s1/s2 regular rate and rhythm, no murmur. equal radial
pulses.
HEENT: Pupils equal round reactive to light, EOMI
Lungs: no acute respiratory distress. clear bilaterally
Abdomen: normal bowel sounds. not tender. no CVAT
Neuro: alert and oriented to person. No focal neurological deficits cranial nerves II through XII intact
Skin: no rash
Psychiatric: Minimally conversive
Extremities: no edema. no calf tenderness. negative homans. good distal pulses
Course
Orders/Labs/Results
Orders:
Orders
08/26/24 13:30
Electrocardiogram (*1) Urgent
Reason for Study: Chest Pain
Cardiac Monitoring- Treatment ONCE
EKG- Treatment ONCE
IV Insert/Care/Rem.- Treatment PRN
O2 Therapy [RESP] Urgent
Titrate/Wean O2 to maintain O2 sat greater than (%): 90
Special Instructions: Maintain sats >/=90%
Pulse Ox/spot Check [RESP] Urgent
Quantity: 1
Special Instructions: ON ROOM AIR
08/26/24 13:35
COVID-19 Antigen Urgent
Source: Nasal Swab
Complete Blood Count/With Diff Urgent
Comprehensive Metabolic Panel Urgent
Ferritin Urgent
Comment: ADD ON
Folate Urgent
Comment: ADD ON
Iron Urgent
NT-proBNP Urgent
Osmolality, Random Urine Urgent
Date Specimen was Collected: 08/26/24
Time Specimen was Collected: 13:32
Comment: ADD ON
Serum Osmolality Urgent
Comment: ADD ON
TSH Reflex To Free T4 Urgent
Comment: ADD ON
Total Iron Binding Urgent
Troponin I Urgent
Urinalysis Reflex To Culture Urgent
Date Specimen was Collected: 08/26/24
Time Specimen was Collected: 13:32
Urine Microscopic Reflex Cult Urgent
Urine Sodium Urgent
Date Specimen was Collected: 08/26/24
Time Specimen was Collected: 13:32
Comment: ADD ON
Vitamin B12 Urgent
Comment: ADD ON
Influenza A+B Rapid Molecular Urgent
KATRIN Source: Nasal Swab
Specimen Description:
Date Specimen was Collected: 08/26/24
Time Specimen was Collected: 13:32
Urine Culture Urgent
KATRIN Source: U
Specimen Description:
Date Specimen was Collected: 08/26/24
Time Specimen was Collected: 13:32
08/26/24 13:36
CT Head W/o Iv Contrast Urgent
Comment:
Reason For Exam: altered mental staus
CR Chest Portable - 1 View Urgent
Comment:
Reason For Exam: altered mental status, recent tavr
Reason Study Needs to be Portable: Patient Unstable
08/26/24 14:47
CefTRIAXone [Rocephin] 1,000 mg IV NOW STA
08/26/24 18:06
Lactic Acid Urgent
Procalcitonin Urgent
PCT Algorithmm Indication: Sepsis
08/26/24 18:09
Add On- LAB Urgent
Tests Added?: Iron, ferritin, TIBC, B12, folate
08/26/24 18:14
Add On- LAB Urgent
Tests Added?: Urine NA, urine Osmo, serum Osmo, TSH with free T4 reflex
08/26/24 18:15
0.9% Sodium Chloride 1000 ml [Nss] 1,000 ml IV 80 mls/hr
08/26/24 18:22
Admit/Transfer Patient As Directed
Co-Sign Provider:
Level of Care: Inpatient admission
Assign to:: Telemetry
Physician / Group: tae jay
Diagnosis: uti, acute chron enceph hypotension,and troponin/ekg
Reason for Telemetry: Arrhythmia
Date to Stop Telemetry: 08/29/24
Time to Stop Telemetry: 11:00
Reason for Hospitalization: uti, acute chron enceph hypotension,and troponin/ekg
Expected length of stay greater than two midnights?: Yes
ELOS- Estimated Length of Stay in days: 4
I certify the patient meets the requirements for IP care: Yes
Code Status As Directed
Resuscitation Status: Full Code
08/26/24 18:30
Troponin I Urgent
08/26/24 18:33
PRN Pain Medication Management As Directed
May give lesser potent ordered pain med per pt: Yes
preference::
Protocol:: Medication orders for pain may be administered in a
manner that supports deferring to patient preference
when the pt is:
- Requesting an ordered lesser potent pain medication.
Least to most potent pain medications are defined
as: acetaminophen < NSAID < tramadol < opioids
(morphine, oxycodone, hydromorphone).
- Requesting a lesser dose of the same medication IF
ORDERED.
- Requesting a less intrusive route of administration
if both routes are prescribed by the provider (PO <
IV).
08/26/24 18:38
CARDIOLOGY CONSULT Routine
Consulting Provider: Sumaya Sparks
Was physician already notified: Yes
Reason for consult: Troponin elevation, abnormal EKG
INFECTIOUS DISEASE CONSULT Routine
Consulting Provider: Casper Eastman
Was physician already notified: Yes
Reason for consult: UTI failed outpatient ABX multiple drug-resistant
08/26/24 18:40
UROLOGY CONSULT Routine
Consulting Provider: Cameron Reyes
Was physician already notified: Yes
Comment: UTI failed outpatient treatment multiple drug resistance
08/26/24 21:30
EKG [Electrocardiogram (*1)] Urgent
Reason for Study: Abnormal EKG
Troponin I Urgent
08/29/24 11:00
DC Protocol for Telemetry ONCE
Abnormal Lab Results
08/26/24 08/26/24
13:27 13:35
WBC 13.2 H 10^3/uL
(4.8-10.8)
RBC 3.22 L 10^6/uL
(4.20-5.40)
Hgb 9.4 L g/dL
(12.0-16.0)
Hct 27.6 L %
(37.0-47.0)
RDW 14.9 H %
(11.5-14.5)
Abs Immat Gran (auto) 0.2 H 10^3/uL
(0-0.05)
Absolute Neuts (auto) 10.6 H 10^3/uL
(1.4-6.5)
Absolute Monos (auto) 1.0 H 10^3/uL
(0.1-0.6)
Immature Gran % 1.4 H %
(0-0.5)
Neutrophils % 80.6 H %
(42.2-75.2)
Lymphocytes % 9.1 L %
(20.5-51.1)
Sodium 129 L mmol/L
(135-145)
BUN 26 H mg/dl
(7-17)
Glucose 160 H mg/dl
(70-99)
Iron 29 L ug/dl
(37-170)
TIBC 248 L ug/dl
(265-497)
% Saturation 11 L %
(20-50)
Troponin I 0.094 H* ng/ml
Total Protein 5.6 L g/dl
(6.3-8.2)
Albumin 3.0 L g/dl
(3.5-5.0)
Ur Occult Blood Reflex 1+ A
(Negative)
Leukocyte Esterase Rfl 3+ A
(Negative)
Urine RBC 3-6 A /HPF
(0-2)
Urine WBC (Reflex) >100 A /HPF
(0-5)
Urine Bacteria (Reflex) Many A
(Negative)
Urine Albumin (Reflex) 2+ A
(Neg - Trace)
POC Glucose 183 H mg/dl
(70-99)
08/26/24 13:35
08/26/24 13:35
Vital Signs
Initial and Last Documented VS:
Initial Vital Signs
Pulse Resp Pulse Ox
97 20 96
08/26/24 13:26 08/26/24 13:26 08/26/24 13:26
Last Documented Vital Signs
Temp Pulse Resp BP Pulse Ox
98.0 F 78 20 98/51 95
08/26/24 14:50 08/26/24 19:45 08/26/24 13:26 08/26/24 17:00 08/26/24 18:55
MDM/Problems Addressed
Differential Diagnosis Includes:
CVA, intracranial hemorrhage, UTI, sepsis
MDM/Problems Addressed:
89-year-old female with altered mental status, UTI, confusion. Treat with Rocephin. Admit to hospitalist. Mild troponin elevation, patient has recently had a TAVR.
Chronic conditions affecting care: Cardiomyopathy
Acute Exacerbation and/or Progression of Chronic Illness: Cardiomyopathy
*Radiology
Radiology exam reviewed: preliminary read by ED provider (Chest x-ray no acute findings, CT head no acute findings)
*Pulse Oximetry
Patient hypoxic: no
*EKG
Interpreted by ED Provider?: Yes
EKG Intrepretation Date: 08/26/24
EKG Intrepretation Time: 13:29
Interpretation: abnormal
Comparison EKG: changes noted
Heart Rate: 91
Rate: normal
Rhythm: sinus
[place]: normal axis
Interval: first degree heart block
QRS Pattern: normal QRS
Ischemia: non-specific ST changes
*Mold Polisher Interpretation
Rate: normal
Interpretation: normal
Heart Rate: 91
Rhythm: sinus
*Critical Care Note
Total Time (30-74mins, 75-104mins- exclusive of procedures): Not Applicable
Data Reviewed
Review of Other/Old Records Reveals: Progress Notes (Patient tolerated TAVR procedure well and notes by Dr. Samano)
Source: records
Patient Management
Social determinants of health affecting care: Living situation
Discussion with other providers: Hospitalist
Escalation/DeEscalation of care consider admission/obs:
Admit indicated
ED Attending Note
-
Portions of this chart may have been created with voice recognition software.� Occasional wrong word or��sound alike� substitutions may have occurred due to the inherent limitations of voice recognition software.
Discharge Plan
Departure
Patient Disposition: Admit
Date of Disposition: 08/26/24
Time of Disposition: 14:49
Admit to: Telemetry
Presentation/result/management discussed w/ accepting MD/DO: Hospitalist
Patient with high blood pressure during this ER visit?: No
Condition: Fair
Discharge Problem:
Acute UTI, Severe aortic stenosis, Acute alteration in mental status
Interventions
Interventions:
*Risk Screen - Suicide Last Done: 08/26/24 13:29
*General Assessment Last Done: 08/26/24 13:29
*Neglect/Abuse Screening Last Done: 08/26/24 13:29
*ED- Fall Risk Assessment Last Done: 08/26/24 13:29
*ED COVID-19 Vaccine History Last Done: 08/26/24 13:29
ED- Neurological Assessment Last Done: 08/26/24 13:30
ED- Cardiac Assessment Last Done: 08/26/24 13:31
[2024-08-26 14:02] LABS: Urine Albumin 2+ (Neg - Trace); Urine Bilirubin Negative (Negative); Urine Character Cloudy (Clear); Urine Color Yellow; Urine Glucose Negative (Negative); Urine Ketone Negative (Negative); Urine Leukocyte 3+ (Negative); Urine Nitrite Negative (Negative); Urine Occult Blood 1+ (Negative); Urine Specific Gravity 1.015 (<1.030); Urine Urobilinogen Negative (Neg - 1+)
[2024-08-26 14:03] LABS: ALT (SGPT) 19 U/L (0-35); AST (SGOT) 33 U/L (14-36); Alkaline Phosphatase 70 U/L (38-126); Blood Urea Nitrogen 26 mg/dl (7-17); Calcium 8.9 mg/dl (8.4-10.2); Carbon Dioxide 25 mmol/L (22-30); Chloride 98 mmol/L (98-107); Glucose 160 mg/dl (70-99); Potassium 4.6 mmol/L (3.5-5.1); Sodium 129 mmol/L (135-145); Total Bilirubin 0.6 mg/dl (0.2-1.3); Total Protein 5.6 g/dl (6.3-8.2); eGFR > 60.00
[2024-08-26 14:04] LABS: % Basophils 0.3 % (0-2); % Eosinophils 0.7 % (0-6); % Immature Granulocytes 1.4 % (0-0.5); % Lymphocytes 9.1 % (20.5-51.1); % Monocytes 7.9 % (1.7-9.3); % Neutrophils 80.6 % (42.2-75.2); Absolute Eosinophils 0.1 10^3/uL (0-0.7); Absolute Immature Granulocytes 0.2 10^3/uL (0-0.05); Absolute Lymphocytes 1.2 10^3/uL (1.2-3.4); Absolute Neutrophils 10.6 10^3/uL (1.4-6.5); Hematocrit 27.6 % (37.0-47.0); Hemoglobin 9.4 g/dL (12.0-16.0); Mean Corp Hgb Conc. 34.1 g/dL (33.0-37.0); Mean Corpuscular Hgb 29.2 pg (27.0-31.0); Mean Corpuscular Volume 85.7 fL (81.0-99.0); Nucleated Red Blood Cells % 0 %; Platelet Count 242 10^3/uL (130-400); Red Blood Cell Count 3.22 10^6/uL (4.20-5.40); Red Cell Dist. Width 14.9 % (11.5-14.5); White Blood Cell Count 13.2 10^3/uL (4.8-10.8)
[2024-08-26 14:12] LABS: COVID-19 Antigen Negative (Negative)
[2024-08-26 14:13] LABS: NT-proBNP 407 pg/ml; Troponin I 0.094 ng/ml
[2024-08-26 14:31] LABS: Urine Squamous Cell 0-2 /LPF (Few)
[2024-08-26 14:32] LABS: Urine Bacteria Many (Negative); Urine White Cell >100 /HPF (0-5)
[2024-08-26] MEDS: ROCEPHIN 1000 MG IV (15:15)
--- NOTE | 2024-08-26 16:19 | CM ---
Patient seen at bedside with son present in ED. Patient sleeping with eyes closed, per patient son has been sleeping since he arrived in ed. Patient has been in and out of [facility] for last 2 months. since May. Patient was home with
family supervision but has had several falls in last 2 months. Patient physician at care home is Dr. Everett and patient would need auth to return. Patient son believes that they have held the bed but referral will be needed to confirm patient
status. Patient has had UTI's over the last several months per son. CM will continue to follow for discharge planning needs.
Plan; contact SNF to confirm patient status and send updated referral patient will need auth prior to return.
--- NOTE | 2024-08-26 17:34 | HPS.HSE ---
Addendum entered and electronically signed by Annette Marin DO 08/27/24 02:06:
She is on both Vesicare and Detrol at home, however discussed with pharmacy that we do not carry Vesicare and we auto sub to Detrol [place]. There is a question as to whether she should be receiving both of these outpatient as this could be contributing
to confusion. We discontinued Vesicare and continue Detrol long-acting and would recommend stopping Vesicare as an outpatient. This could be discussed with urology in the morning if needed.
Addendum entered and electronically signed by Annette Marin DO 08/26/24 19:32:
Patient is seen and examined. I have reviewed the patient extensively with Alyssia and reviewed her history and physical and assessment and plan of care and agree with them as per below. The patient is an 89-year-old woman with past medical history
significant for CAD, hypertension, hyperlipidemia, hypothyroidism, recent TAVR on August 18, 2024 due to severe aortic stenosis, who has been treated recently for multiple urinary tract infections and had a pessary placed by urology. She was started
on Cipro for 5 days based on recent urine analysis that was growing Citrobacter with multiple drug resistance. She also recently had a COVID infection on August 10. On my examination today she is awake and alert to person and place. She is aware
of her son. Her son is in the room and says that she is not yet back to her baseline mentation. Additionally she has been having difficulty with physical therapy with her her feet turning inward and inability to ambulate.
Blood pressure 98/51, afebrile
Cardiovascular regular rate and rhythm, 2 out of 6 systolic ejection murmur appreciated
Lungs are clear to auscultation bilaterally no wheezes rales rhonchi
Neuro no focal neurologic deficits. She does have inward rotation of feet bilaterally. No contractures.
Sodium 129 creatinine 0.6 UA positive for 3+ leuk esterase and greater than 100 WBCs
Assessment and plan of care
Patient is a pleasant 89-year-old woman with past medical history as noted who presents for persistent altered mentation, urinary tract infection with concern for ESBL, hypotension
Please see assessment and plan of care as per below.
Original Note:
Family Physician
-
Family Physician: Ruslan Everett
Chief Complaint
-
Confusion, lethargy
History of Present Illness
89-year-old female from [facility] who over the past 8 days has had weakness and confusion. She is status post TAVR on 08/18/2024 due to severe aortic stenosis which was 8 days ago. On her discharge notes stated she was noted to have
foul-smelling urine and a pessary urology was consulted and recommended outpatient follow-up. The patient was started on ciprofloxacin for 5 days based on urinalysis with urine culture growing Citrobacter amalonaticus with multiple drug resistance
but susceptible to ciprofloxacin. She should have finished the ciprofloxacin on 08/24/2024. She also had recent COVID infection positive on 08/10/2024 .She has been working with physical therapy however has not been able to follow directions when
they tell her to bend something she straightens out the legs or arms. Her son states since a fall a month ago she has been bedridden with her feet starting to turn inward. He reports she has had recurrent UTIs since May.
She has past medical history of recurrent UTIs, COVID infection, HTN, HLD, hypothyroidism, paroxysmal A-fib, factor V Leiden, anemia, postop LBBB resolved
Medical History
Past Medical History
Past Medical History: Reports CAD (single vessel RCA CAD ), HTN, Hypercholesterolemia, Hypothyroidism and Other
Additional Past Medical History:
COVID infection 08/09/2024
HTN
HLD
hypothyroidism
paroxysmal A-fib
factor V Leiden
anemia
postop LBBB resolved
Recurrent UTIs has reported pessary ring
History of Citrobacter amalonaticus on 08/19/2024 treated with ciprofloxacin x 5 days was sensitive to ciprofloxacin (multiple drug-resistant 2 ampicillin sulbactam, Augmentin, Azactam, cefazolin, ceftriaxone, tetracycline)
Hx of E. coli, Citrobacter on 08/09/2024
Past Surgical History: Reports Other
Social History
Tobacco: Non-smoker
Alcohol: None
Drug: None
Living: [facility] ([facility])
Family History
Family History: Not pertinent
Allergies / Home Medications
Allergies reflects when Allergies were last updated in Facebook.
Home Medications with original date entered in Facebook
Allergy/Medication List:
Allergies
Allergy/AdvReac Type Severity Reaction Status Date / Time
amoxicillin Allergy Unknown Verified 08/26/24 13:32
clavulanic acid Allergy Rash Verified 08/26/24 13:32
[From Augmentin]
hydrochlorothiazide Allergy Rash Verified 08/26/24 13:32
Home Medications
amlodipine 5 mg tablet 5 mg PO BID Blood Pressure 04/05/20
cholecalciferol (vitamin D3) 25 mcg (1,000 unit) tablet 1,000 units PO QPM Supplement 04/05/20
levothyroxine 175 mcg tablet 175 mcg PO HS Thyroid 04/05/20
simvastatin 10 mg tablet 10 mg PO DAILY High Cholesterol 04/05/20
nitroglycerin 0.4 mg sublingual tablet 0.4 mg sublingual [id number] PRN chest pain #25 tabs 10/02/23
aspirin 81 mg chewable tablet 81 mg PO DAILY #30 tabs 08/12/24
omeprazole 20 mg capsule,delayed release 20 mg PO DAILY 08/18/24
sorbitol 70 % solution 30 ml PO Q48H 08/18/24
tolterodine 4 mg capsule,extended release 24 hr 4 mg PO QPM 08/18/24
acetaminophen 325 mg tablet 650 mg PO BID 08/26/24
acetaminophen 325 mg tablet 650 mg PO Q6HPRN PRN mild pain,fever>100.5 08/26/24
calcium 600 mg (as carbonate)-vitamin D3 20 mcg (800 unit) tablet 1 tab PO QPM 08/26/24
conjugated estrogens 0.625 mg/gram vaginal cream (Premarin) 0.625 mg vaginal MOTH 08/26/24
hydralazine 25 mg tablet 25 mg PO BID 08/26/24
lisinopril 20 mg tablet 20 mg PO BID 08/26/24
solifenacin 10 mg tablet 10 mg PO DAILY 08/26/24
Review of Systems
-
History Source: Patient (Responds to name only is not oriented to son Srinivasa at bedside) and Family (Son Srinivasa at bedside)
A 12 point ROS was completed and negative except as noted: Yes
Constitutional: Reports Fatigue and Other (Confused, lethargic); Denies Fever or Chills
Respiratory: Denies Cough or Trouble Breathing
Cardiac: Denies Chest Pain, Diaphoresis or Palpitations
Abdomen/GI: Denies Abdominal Pain, Nausea or Vomiting
Musculoskeletal: Denies Edema
Skin: Denies Rash
Neurological: Reports Weakness (Generalized)
Psych: Reports Calm
Physical Exam
Vital Signs
Vital Signs
Temp Pulse Resp BP Pulse Ox
98.0 F 73 20 92/46 95
08/26/24 14:50 08/26/24 15:00 08/26/24 13:26 08/26/24 15:00 08/26/24 14:01
Physical Exam
General: Comfortable and Conversant; No Fever or Chills
HEENT: NormoCephalic, Anicteric, Moist mucous membranes, PERRLA, [place] Conjunctivae and No Ptosis
Respiratory: Clear; No Wheezes, Rales or Rhonchi
Cardiac: Murmur (2/6 systolic); No Tachycardia, Rub, Gallop or Peripheral Edema
Breast: Deferred by me
GI: Soft, Non Tender, Non Distended, Normal Bowel Sounds and No Hepatosplenomegaly
Rectal: Deferred by Provider
Genito-urinary: Deferred by me
Musculoskeletal: No Clubbing, No Cyanosis and Other (Trace bilateral lower leg edema nonpitting, multiple bruises bilateral lower legs, bilateral feet with inversion due to bedbound status x 1 month)
Skin: Warm and Dry; No Rash
Neuro: Awake and Alert (Oriented to name only); No Slurred Speech, Facial Droop, Tremors or Sedated
Psych: Calm
Laboratory Results
-
08/26/24 13:35
08/26/24 13:35
Laboratory Results
Total Bilirubin 0.6 mg/dl (0.2-1.3) 08/26/24 13:35
AST 33 U/L (14-36) 08/26/24 13:35
ALT 19 U/L (0-35) 08/26/24 13:35
Alkaline Phosphatase 70 U/L (38-126) 08/26/24 13:35
Troponin I 0.094 ng/ml H* 08/26/24 13:35
Impression/Plan
-
Impression/plan:
Admit to telemetry
Acute confusion with dysuria likely UTI failed treatment
#Recurrent UTIs has reported pessary ring
#History of Citrobacter amalonaticus on 08/19/2024 treated with ciprofloxacin x 5 days was sensitive to ciprofloxacin (multiple drug-resistant 2 ampicillin sulbactam, Augmentin, Azactam, cefazolin, ceftriaxone, tetracycline)
#Hx of E. coli, Citrobacter on 08/09/2024
-UA +3 leukocytes WBC> 100, many bacteria
- Consult urology
-Consult ID
- IV meropenem
- Follow CBC, CMP
# Acute on chronic encephalopathy multifactorial (recent COVID 08/09, anesthesia status post TAVR 08/18, UTI 08/19) worse since 08/15/2024
- Fall precautions
-Neurochecks every 8 hours
CXR: No evidence of acute cardiopulmonary process
CT head: No acute intracranial abnormality. Mild to moderate atrophy. Moderate to severe leukomalacia which appears stable
#Hypotension likely secondary to UTI
BP 92/46
IV NSS 80 cc/hr x 1 liters will monitor after 1 L due to history of hyponatremia 129 but as low as 123 on 08/14/2024
- Hold lisinopril 20 mg twice daily, hydralazine 25 mg p.o. twice daily, amlodipine 5 mg twice daily
#Nonischemic myocardial injury troponin likely elevated due to recent TAVR 08/18/2024
Troponin 0.094, will monitor
#Abnormal EKG post TAVR
-Consult CBC cardiology
EKG: Sinus rhythm with first-degree AV block 91 bpm, QTc 462 MS, septal infarct now present,
nonspecific T wave abnormality inferior and lateral leads compared to 08/19/2024
#Hyponatremia
History hyponatremia on 08/14/2024 na 123 did receive 1 dose of tolvaptan(samsca)
NA 129
Will check urine NA, urine osmole, serum osmole, TSH with free T4 reflex
- Was on prior fluid restrict 40 ounce but currently hypotensive
#Anemia normocytic
Hgb 9.4 appears baseline from July prior hemoglobin 06 June 2024
Will check iron panel, B12, folate
# Chronic hypothyroidism
-Check TSH with free T4 reflex
-Continue levothyroxine 175 mcg p.o. daily
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
2D echo 08/19/2024: EF 65-70%, normal LVSF, no wall abnormalities, TAVR Owen MOISÉS 23 peak mean gradients 19/10 mmHg. Trace AR
#Hx postop LBBB resolved 08/18/2024
#Memory impairment�mild starting May 2023 per son Srinivasa
States she usually knows him can follow directions however very confused this past week
#Hx falls
-Fall precautions
#HLD
- Continue simvastatin 10 mg daily
#Paroxysmal A-fib
- Off Xarelto due to falls
- Continue aspirin 81 mg daily
- No current rate control meds
#factor V Leiden hx
- Patient with bruising bilateral lower legs
#GERD
- Continue omeprazole 20 mg daily
DVT prophylaxis
SCDs
Full code per son Srinivasa at bedside
[2024-08-26 18:55] LABS: Iron 29 ug/dl (37-170)
[2024-08-26 18:57] LABS: Urine Sodium 33 mmol/L (30-90)
[2024-08-26 19:06] LABS: Osmolality Urine 418 mOsm/kg (300-900)
[2024-08-26 19:10] LABS: Percent Saturation 11 % (20-50); Total Iron Binding Capacity 248 ug/dl (265-497)
[2024-08-26 19:13] LABS: Osmolality Serum 279 mOsm/kg (275-300)
[2024-08-26 19:47] LABS: TSH Reflex To Free T4 3.44 uIU/ml (0.47-4.68)
[2024-08-26] MEDS: NSS 1000 IV (19:47)
[2024-08-26 20:22] LABS: Vitamin B12 780 pg/ml (239-931)
[2024-08-26] MEDS: STERILE WATER FOR INJECTION 10 ML IV (21:07)
[2024-08-26] MEDS: MERREM 500 MG IV (21:07)
[2024-08-26 21:56] LABS: Lactic Acid < 0.5 mmol/L (0.7-2.0)
[2024-08-26 22:11] LABS: Troponin I 0.087 ng/ml
[2024-08-26 22:16] LABS: Procalcitonin 0.11 ng/ml (0.0-0.25)
[2024-08-26] MEDS: SYNTHROID 175 MCG PO (22:51)
[2024-08-26] MEDS: TYLENOL 650 MG PO (22:51)
[2024-08-27 03:19] VITALS: BP 115/60
[2024-08-27] MEDS: MERREM 500 MG IV ×3 (03:53→19:35)
[2024-08-27] MEDS: STERILE WATER FOR INJECTION 10 ML IV ×3 (03:53→19:35)
[2024-08-27 06:00] VITALS: BMI 19.7
[2024-08-27 07:51] VITALS: BP 127/64
[2024-08-27 07:59] LABS: % Basophils 0.4 % (0-2); % Immature Granulocytes 1.4 % (0-0.5); % Lymphocytes 10.8 % (20.5-51.1); % Monocytes 11.8 % (1.7-9.3); % Neutrophils 73.6 % (42.2-75.2); Absolute Eosinophils 0.2 10^3/uL (0-0.7); Absolute Immature Granulocytes 0.1 10^3/uL (0-0.05); Absolute Monocytes 1.1 10^3/uL (0.1-0.6); Absolute Neutrophils 6.8 10^3/uL (1.4-6.5); Hematocrit 23.4 % (37.0-47.0); Hemoglobin 7.9 g/dL (12.0-16.0); Mean Corp Hgb Conc. 33.8 g/dL (33.0-37.0); Mean Corpuscular Hgb 28.6 pg (27.0-31.0); Mean Corpuscular Volume 84.8 fL (81.0-99.0); Mean Platelet Volume 8.7 fL (7.4-10.4); Nucleated Red Blood Cells % 0 %; Platelet Count 212 10^3/uL (130-400); Red Blood Cell Count 2.76 10^6/uL (4.20-5.40); Red Cell Dist. Width 14.9 % (11.5-14.5); White Blood Cell Count 9.2 10^3/uL (4.8-10.8)
[2024-08-27 08:32] LABS: ALT (SGPT) 15 U/L (0-35); AST (SGOT) 25 U/L (14-36); Albumin 2.4 g/dl (3.5-5.0); Alkaline Phosphatase 70 U/L (38-126); Blood Urea Nitrogen 20 mg/dl (7-17); Calcium 8.2 mg/dl (8.4-10.2); Carbon Dioxide 26 mmol/L (22-30); Chloride 102 mmol/L (98-107); Estimated Creatinine Clearance 49 ml/min; Glucose 87 mg/dl (70-99); Potassium 3.6 mmol/L (3.5-5.1); Sodium 131 mmol/L (135-145); Total Bilirubin 0.5 mg/dl (0.2-1.3); Total Protein 4.7 g/dl (6.3-8.2); eGFR > 60.00
[2024-08-27] MEDS: LOW STRENGTH ASPIRIN 81 MG PO (08:39)
[2024-08-27] MEDS: TYLENOL 650 MG PO ×2 (08:39→19:35)
[2024-08-27] MEDS: LIPITOR 10 MG PO (08:39)
[2024-08-27] MEDS: PROTONIX 40 MG PO (08:39)
[2024-08-27] MEDS: SORBITOL 70% 30 ML PO (09:49)
--- NOTE | 2024-08-27 11:08 | PTOTSP ---
Speech Pathology Evaluation
89F with admission for UTI, acute on chronic encephalopathy, and hypotension p/w a functional oropharyngeal swallow. No overt concerns for aspiration at this time.
Recommend:
1. Regular textures, thin liquids
2. Meds as best tolerated
3. MANAGER RN CASE service to s/p. Please re-consult if overt s/s of aspiration arise.
--- NOTE | 2024-08-27 11:21 | W.PN.HOSP.TC ---
Today's Communication/Plan
-
complex situation
will recheck Hgb
continue Meropenem
Assessment / Plan
Assessment / Plan
Acute confusion with dysuria likely UTI failed treatment
#Recurrent UTIs has reported pessary ring
#History of Citrobacter amalonaticus on 08/19/2024 treated with ciprofloxacin x 5 days was sensitive to ciprofloxacin (multiple drug-resistant 2 ampicillin sulbactam, Augmentin, Azactam, cefazolin, ceftriaxone, tetracycline)
#Hx of E. coli, Citrobacter on 08/09/2024
-UA +3 leukocytes WBC> 100, many bacteria
- Consult urology
-Consult ID
- IV meropenem
- Follow CBC, CMP
# Acute on chronic encephalopathy multifactorial (recent COVID 08/09, anesthesia status post TAVR 08/18, UTI 08/19) worse since 08/15/2024
- Fall precautions
-Neurochecks every 8 hours
CXR: No evidence of acute cardiopulmonary process
CT head: No acute intracranial abnormality. Mild to moderate atrophy. Moderate to severe leukomalacia which appears stable
#Hypotension likely secondary to UTI
BP 92/46 on admission, now 127/64
- Hold lisinopril 20 mg twice daily, hydralazine 25 mg p.o. twice daily, amlodipine 5 mg twice daily, follow BP, consider resumption of antiHTN as BP normalizes
#Nonischemic myocardial injury troponin likely elevated due to recent TAVR 08/18/2024
Troponin 0.094, will monitor
#Abnormal EKG post TAVR
Procedure done 08/18/24
-Consult CBC cardiology
EKG: Sinus rhythm with first-degree AV block 91 bpm, QTc 462 MS, septal infarct now present,
nonspecific T wave abnormality inferior and lateral leads compared to 08/19/2024
#Hyponatremia
History hyponatremia on 08/14/2024 na 123 did receive 1 dose of tolvaptan(samsca)
NA 129-->131
Will check urine NA, urine osmole, serum osmole, TSH with free T4 reflex
- Was on prior fluid restrict 40 ounce but currently hypotensive
#Anemia normocytic
Hgb 9.4-->7.9. Will recheck and T&S later today
Will check iron panel, B12, folate
# Chronic hypothyroidism
-Check TSH with free T4 reflex
-Continue levothyroxine 175 mcg p.o. daily
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
2D echo 08/19/2024: EF 65-70%, normal LVSF, no wall abnormalities, TAVR Owen MOISÉS 23 peak mean gradients 19/10 mmHg. Trace AR
#Hx postop LBBB resolved 08/18/2024
#Memory impairment�mild starting May 2023 per ratna Bernabe
States she usually knows him can follow directions however very confused this past week
#Hx falls
-Fall precautions
#HLD
- Continue simvastatin 10 mg daily
#Paroxysmal A-fib
- Off Xarelto due to falls
- Continue aspirin 81 mg daily
- No current rate control meds
#factor V Leiden hx
- Patient with bruising bilateral lower legs
#GERD
- Continue omeprazole 20 mg daily
DVT prophylaxis
SCDs
Full code per ratna Bernabe at bedside
Anticipated Discharge: > 48 hours
Subjective/Interval History
-
Date of Service: August 27, 2024
Awake, alert, appears weak
Objective Data
-
Labs:
Laboratory Results
08/27/24
07:38
WBC 9.2
Hgb 7.9 L
Hct 23.4 L
Plt Count 212
Sodium 131 L
Potassium 3.6
Chloride 102
Carbon Dioxide 26
BUN 20 H
Creatinine 0.5 L
Glucose 87
Calcium 8.2 L
Total Bilirubin 0.5
AST 25
ALT 15
Alkaline Phosphatase 70
Vital Signs:
Vital Signs
Temp Pulse Resp BP Pulse Ox
98 F 84 14 127/64 96
08/27/24 07:51 08/27/24 07:51 08/27/24 07:51 08/27/24 07:51 08/27/24 07:51
I&O
08/26/24 08/27/24 08/28/24
06:59 06:59 06:59
Intake Total 820 / 820
Balance 820 / 820
Review of Systems
-
History Source: Patient and Coordinated Provider
Constitutional: Denies Fever
EENT: Reports No Symptoms Reported
Respiratory: Reports No Symptoms
Cardiac: Reports No Symptoms; Denies Chest Pain
Abdomen/GI: Reports No Symptoms
Neuro: Reports Weakness
Physical Exam
-
General: Well Developed, Appears Chronically Ill and Other (thin)
HEENT: Normocephalic, Atraumatic and Moist Mucous Membranes
Respiratory: Clear to Auscultation; Negative Wheezes, Rales or Rhonchi
Cardiac: Regular Rhythm and S1/S2
GI: Soft, Nontender and Nondistended
Musculoskeletal: No Clubbing, No Cyanosis, No Edema and Other (muscular atrophy)
Neuro: Awake and Alert
--- NOTE | 2024-08-27 11:28 | W.PN.URO.CBU ---
Today's Communication / Plan
-
ordered u/s
Assessment / Plan
-
await czxs holsd anticholinergics obtain renal and bladder u/s
Diagnosis
-
Date of Service: August 27, 2024
-
Patient Diagnosis:uti in past on cipro now mental status change also on vesicare and detrol both of which are associated with dementia as is uti
Post Op Day:
Subjective
-
somnolent
Objective
-
Vital Signs
Temp Pulse Resp BP Pulse Ox
98 F 84 14 127/64 96
08/27/24 07:51 08/27/24 07:51 08/27/24 07:51 08/27/24 07:51 08/27/24 07:51
Intake and Output
08/26/24 08/27/24 08/28/24
06:59 06:59 06:59
Intake Total 820 / 820
Balance 820 / 820
Intake:
Oral fluids 100 / 100
IV fluids (Total) 720 / 720
Other:
How many times incontinent 1
MODERATE amount urine
How many times incontinent 1
SATURATED amount urine
Laboratory Results
08/27/24 07:38
08/27/24 07:38
Review of Systems
-
Unable to obtain full review of systems at this time due to: Dementia (possible ms change)
: Dysuria
Physical Exam
-
General - well developed, well nourished, no acute distress
Chest - clear bilaterally
Abdomen - soft, non-tender, positive bowel sounds, no CVAT, no incisional pain or distention
Genitalia - normal
Rectal - normal
Skin - warm & dry with no rash
Neuro - AOx3, no motor deficits
Extremities - no clubbing, no cyanosis, no edema
Incision - clean, dry
Dressing - clean, dry, intact
Care Review
Data Reviewed
Discussed with: Hospitalist and Nursing
[2024-08-27 11:30] VITALS: BP 128/71
[2024-08-27 11:57] LABS: Hematocrit 24.1 % (37.0-47.0); Hemoglobin 8.2 g/dL (12.0-16.0); Mean Corpuscular Hgb 28.7 pg (27.0-31.0); Mean Corpuscular Volume 84.3 fL (81.0-99.0); Mean Platelet Volume 8.9 fL (7.4-10.4); Platelet Count 235 10^3/uL (130-400); Red Blood Cell Count 2.86 10^6/uL (4.20-5.40); Red Cell Dist. Width 14.8 % (11.5-14.5); White Blood Cell Count 9.4 10^3/uL (4.8-10.8)
--- NOTE | 2024-08-27 12:43 | CON.CAR ---
Consultation
Consultation Request
Date/Time Consultation Requested: 08/27/24
Date/Time Consultation Performed:
Reason for Consultation: UTI.
Medical History
-
Chief Complaint: Recent transfemoral aortic valve replacement.
History of Present Illness:
The patient is an 89-year-old woman with past medical history significant for CAD, hypertension, hyperlipidemia, hypothyroidism, recent TAVR on August 18, 2024 due to severe aortic stenosis, who has been treated recently for multiple urinary tract
infections and had a pessary placed by urology. She was started on Cipro for 5 days based on recent urine analysis that was growing Citrobacter with multiple drug resistance. She also recently had a COVID infection on August 10. On my examination
today she is awake and alert to person and place. She is aware of her son. Her son is in the room and says that she is not yet back to her baseline mentation. Additionally she has been having difficulty with physical therapy with her her feet
turning inward and inability to ambulate.
She has been working with physical therapy however has not been able to follow directions when they tell her to bend something she straightens out the legs or arms. Her son states since a fall a month ago she has been bedridden with her feet
starting to turn inward. He reports she has had recurrent UTIs since May.
She has past medical history of recurrent UTIs, COVID infection, HTN, HLD, hypothyroidism, paroxysmal A-fib, factor V Leiden, anemia, postop LBBB resolved.
2D echo 08/19/2024: EF 65-70%, normal LVSF, no wall abnormalities, TAVR Owen CHICHO 23 peak mean gradients 19/10 mmHg. Trace AR
Past Medical History
Past Medical History: Arrhythmias (PAF), CAD (single vessel RCA CAD), HTN, Hypercholesterolemia, Hypothyroidism and Other (COVID infection 08/09/2024, factor V Leiden, anemia, postop LBBB resolved, Recurrent UTIs has reported pessary ring)
Social History
Tobacco: Non-Smoker
Alcohol: None
Drug: None
Living: Halfway
Family History
Family History: Reviewed & Not Pertinent
Allergies / Home Medications
Allergy/AdvReac Type Severity Reaction Status Date / Time
amoxicillin Allergy Unknown Verified 08/26/24 13:32
clavulanic acid Allergy Rash Verified 08/26/24 13:32
[From Augmentin]
hydrochlorothiazide Allergy Rash Verified 08/26/24 13:32
�Medication �Instructions �Recorded �Confirmed �Type
amlodipine 5 mg tablet 5 mg PO BID Blood Pressure 04/05/20 08/26/24 History
cholecalciferol (vitamin D3) 25 1,000 units PO QPM Supplement 04/05/20 08/26/24 History
mcg (1,000 unit) tablet
levothyroxine 175 mcg tablet 175 mcg PO HS Thyroid 04/05/20 08/26/24 History
simvastatin 10 mg tablet 10 mg PO DAILY High Cholesterol 04/05/20 08/26/24 History
nitroglycerin 0.4 mg sublingual 0.4 mg sublingual [id number] PRN 10/02/23 08/26/24 Rx
tablet chest pain #25 tabs
aspirin 81 mg chewable tablet 81 mg PO DAILY #30 tabs 08/12/24 08/26/24 Rx
omeprazole 20 mg capsule,delayed 20 mg PO DAILY 08/18/24 08/26/24 History
release
sorbitol 70 % solution 30 ml PO Q48H 08/18/24 08/26/24 History
tolterodine 4 mg capsule,extended 4 mg PO QPM 08/18/24 08/26/24 History
release 24 hr
acetaminophen 325 mg tablet 650 mg PO BID 08/26/24 08/26/24 History
acetaminophen 325 mg tablet 650 mg PO Q6HPRN PRN mild 08/26/24 08/26/24 History
pain,fever>100.5
calcium 600 mg (as 1 tab PO QPM 08/26/24 08/26/24 History
carbonate)-vitamin D3 20 mcg (800
unit) tablet
conjugated estrogens 0.625 mg/gram 0.625 mg vaginal MOTH 08/26/24 08/26/24 History
vaginal cream (Premarin)
hydralazine 25 mg tablet 25 mg PO BID 08/26/24 08/26/24 History
lisinopril 20 mg tablet 20 mg PO BID 08/26/24 08/26/24 History
solifenacin 10 mg tablet 10 mg PO DAILY 08/26/24 08/26/24 History
Review of Systems
-
All other systems: Negative unless noted
Physical Exam
Vital Signs
Temp Pulse Resp BP Pulse Ox
98 F 84 14 128/71 98
08/27/24 11:30 08/27/24 11:30 08/27/24 11:30 08/27/24 11:30 08/27/24 11:30
Lab Results
08/27/24 11:43
08/27/24 07:38
Troponin I 0.087 ng/ml H* 08/26/24 21:38
Jqh-M-Rfecdbnnhby Pept 407 pg/ml 08/26/24 13:35
Physical Exam
General: Well Developed, Well Nourished and Comfortable
HEENT: Normocephalic, Anicteric and Moist Mucous Membranes
Respiratory: Clear and Non Labored Respirations
Cardiac: S1/S2, Irregular Rhythm and Murmur
GI: Soft, Non Distended and Normal Bowel Sounds
Musculoskeletal: No Clubbing, No Cyanosis and No Edema
Skin: Warm and Dry
Neuro: Awake, Alert and No Motor Deficits
Impression / Plan
-
89 year old woman with severe aortic stenosis, recent falls, recurrent UTIs, CAD,transfemoral TAVR (Chicho S3 Ultra 23 mm valve from right femoral artery, Chaz/Selwyn). Patient tolerated the procedure well. Had transient left bundle branch block
that resolved.
Primary Cards: Dr. Arndt
Acute confusion with dysuria likely UTI failed treatment
-Recurrent UTIs has reported pessary ring
-Urology and ID is following
Recent TAVR
-TAVR 08/18
-Groin CDI. RRR. CTAB.
-Echo with mean gradient 10, normal valve appearance, normal LVEF.
Hypotension
-Possible complicated UTI
-Agree to hold Lisinopril
Sinus rhythm on tele.
Cont. ASA
Data Reviewed
-
EKG: Tracing Personally Visualized and interpreted
Radiology: Report Reviewed by me
Labs: Labs Reviewed by me
Old Records: Reviewed
--- NOTE | 2024-08-27 14:13 | W.PN.UPDATE ---
Update Note
Progress Note Update
u/s no hydro some renal cvalculi nb ut overdisyedned bladder with debris needs hughes
--- NOTE | 2024-08-27 15:02 | CON.ID ---
Consultation
-
Date/Time Consultation Requested: 08/26/2024 1839
Date/Time Consultation Performed: 08/27/24 1220
Requesting Provider: Alyssia Pickett
Performing Provider: Dr. Eastman
Reason for Consultation: UTI
Chief Complaint / Past History
History of Present Illness
Ann Yanez is an 89-year-old female being evaluated at the request of Alyssia Pickett regarding urinary tract infection. History is obtained from chart review, along with patient interview.
The patient has a significant past medical history of valvulopathy (aortic stenosis) and recently was admitted to [facility] from 08/09 through 08/19, during which time she underwent a TAVR procedure. On the day of discharge, she was noted to
have foul-smelling urine, and urine culture revealed the presence of Citrobacter. She was discharged on a 5-day course of ciprofloxacin.
She was discharged back to her assisted living facility, but has had ongoing weakness reportedly for the past 8 days. In the emergency room she was noted to have a low-grade leukocytosis. She reportedly has had several falls, and her family who is
at the bedside report that she has had intermittent change in mental status for the past several months.
No history of dysuria. No history of hematuria. No history of fevers or chills. She is incontinent of urine, and wears adult garments.
Past History
Additional Past Medical History:
CAD
HTN
Dyslipidemia
Hypothyroidism
Aortic stenosis
Additional Past Surgical History:
TAVR (08/18/2024)
Right knee surgery
Cataract surgery
Breast biopsy
Allergy History:
amoxicillin Allergy (Verified 08/26/24 13:32)
Unknown
clavulanic acid [From Augmentin] Allergy (Verified 08/26/24 13:32)
Rash
hydrochlorothiazide Allergy (Verified 08/26/24 13:32)
Rash
Medications Reviewed: Yes
Current Antibiotics:
Meropenem
Social History
Tobacco: Non-Smoker
Alcohol: None
Drug: None
Living: Assisted Living
Employment: Not Employed
Review of Systems
Vital Signs
Temp Pulse Resp BP Pulse Ox
98 F 84 14 128/71 98
08/27/24 11:30 08/27/24 11:30 08/27/24 11:30 08/27/24 11:30 08/27/24 11:30
Physical Exam
Physical Exam
Constitutional: No Acute Distress, Comfortable and Chronically Ill
Eyes: No Conjunctival Hemorrhage and Sclera Anicteric
Oral: No Thrush and No Ulcers
Cardiovascular: Regular Rate and S1/S2; Negative S3/S4
Pulmonary: Clear; Negative Wheezes or Rales
Gastrointestinal: Soft, Non Distended, Normal Bowel Sounds, No Rebound and No Guarding
Genito-Urinary: Negative Hubbard
Extremities: Negative Edema, Cyanosis or Erythema
Skin: Warm and Dry; Negative Rash or Jaundice
Neurological: Awake and Alert
Psychological: Calm
Lab / Diagnostic Study Results
08/27/24 11:43
08/27/24 07:38
Abs Immat Gran (auto) 0.1 10^3/uL (0-0.05) H 08/27/24 07:38
Absolute Neuts (auto) 6.8 10^3/uL (1.4-6.5) H 08/27/24 07:38
Absolute Lymphs (auto) 1.0 10^3/uL (1.2-3.4) L 08/27/24 07:38
Absolute Monos (auto) 1.1 10^3/uL (0.1-0.6) H 08/27/24 07:38
Absolute Basos (auto) 0.0 10^3/uL (0-0.2) 08/27/24 07:38
Immature Gran % 1.4 % (0-0.5) H 08/27/24 07:38
Neutrophils % 73.6 % (42.2-75.2) 08/27/24 07:38
Lymphocytes % 10.8 % (20.5-51.1) L 08/27/24 07:38
Monocytes % 11.8 % (1.7-9.3) H 08/27/24 07:38
Eosinophils % 2.0 % (0-6) 08/27/24 07:38
Basophils % 0.4 % (0-2) 08/27/24 07:38
Lactic Acid < 0.5 mmol/L (0.7-2.0) L 08/26/24 21:38
Procalcitonin 0.11 ng/ml (0.0-0.25) 08/26/24 21:38
Ur Squamous Epith Cells 0-2 /LPF (Few) 08/26/24 13:35
Microbiology Results
Micro:
08/26/24 13:35 Urine Culture - Preliminary
Urine
08/26/24 23:48 MRSA Screen - Pending
Nose
08/26/24 13:35 Influenza Types A & B (JAGDEEP) - Final
Nasal Swab Negative for Influenza A & B, NAAT
Negative results must be combined with clinical observations
and patient history.
Nucleic Acid Amplification test (NAAT)performed on the
[employer] NOW platform.
Imaging:
08/27/2024 Renal ultrasound: Subcentimeter nonobstructing bilateral renal calculi. No hydronephrosis. Layering debris within the urinary bladder, possibly sequelae of cystitis.
08/26/24 CT head without contrast: No evidence of acute intracranial abnormality
08/26/2024 CXR (portable): No evidence of acute cardiopulmonary disease.
Assessment / Plan
Generalized weakness
Encephalopathy
Bacteriuria/pyuria; possible complicated urinary tract infection
Hyponatremia
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
CAD
HTN
Dyslipidemia
Hx hypothyroidism
Recommendations:
Continue with meropenem for the present.
Await results from current urine culture.
Monitor white count and temperature curve.
[2024-08-27 15:32] VITALS: BP 117/63
[2024-08-27] MEDS: OSCAL 500 + D 500 MG PO (17:23)
[2024-08-27] MEDS: VITAMIN D3 (cholecalciferol) 25 MCG PO (17:23)
[2024-08-27] MEDS: DETROL LA 4 MG PO (17:23)
[2024-08-27 19:00] VITALS: BP 148/88
[2024-08-27] MEDS: SYNTHROID 175 MCG PO (21:42)
[2024-08-27 23:00] VITALS: BP 114/53
[2024-08-28] VITALS (11 sets, daily range): BP systolic 113–149; BP diastolic 60–75; PULSE 74; O2SAT 95; BMI 18.8
[2024-08-28] MEDS: MERREM 500 MG IV ×3 (05:35→21:25)
[2024-08-28] MEDS: STERILE WATER FOR INJECTION 10 ML IV ×3 (05:35→21:24)
[2024-08-28 06:12] LABS: % Basophils 0.7 % (0-2); % Immature Granulocytes 1.4 % (0-0.5); % Lymphocytes 16.2 % (20.5-51.1); % Monocytes 12.9 % (1.7-9.3); % Neutrophils 65.8 % (42.2-75.2); Absolute Basophils 0.1 10^3/uL (0-0.2); Absolute Eosinophils 0.2 10^3/uL (0-0.7); Absolute Immature Granulocytes 0.1 10^3/uL (0-0.05); Absolute Lymphocytes 1.2 10^3/uL (1.2-3.4); Hematocrit 22.2 % (37.0-47.0); Hemoglobin 7.6 g/dL (12.0-16.0); Mean Corp Hgb Conc. 34.2 g/dL (33.0-37.0); Mean Corpuscular Hgb 28.9 pg (27.0-31.0); Mean Corpuscular Volume 84.4 fL (81.0-99.0); Mean Platelet Volume 9.1 fL (7.4-10.4); Nucleated Red Blood Cells % 0 %; Platelet Count 235 10^3/uL (130-400); Red Blood Cell Count 2.63 10^6/uL (4.20-5.40); Red Cell Dist. Width 14.6 % (11.5-14.5); White Blood Cell Count 7.7 10^3/uL (4.8-10.8)
[2024-08-28 06:52] LABS: ALT (SGPT) 16 U/L (0-35); AST (SGOT) 24 U/L (14-36); Albumin 2.3 g/dl (3.5-5.0); Alkaline Phosphatase 73 U/L (38-126); Blood Urea Nitrogen 16 mg/dl (7-17); Calcium 8.3 mg/dl (8.4-10.2); Carbon Dioxide 27 mmol/L (22-30); Chloride 103 mmol/L (98-107); Estimated Creatinine Clearance 47 ml/min; Glucose 73 mg/dl (70-99); Potassium 3.5 mmol/L (3.5-5.1); Sodium 134 mmol/L (135-145); Total Bilirubin 0.5 mg/dl (0.2-1.3); Total Protein 4.7 g/dl (6.3-8.2); eGFR > 60.00
[2024-08-28] MEDS: LIPITOR 10 MG PO (08:34)
[2024-08-28] MEDS: PROTONIX 40 MG PO (08:34)
[2024-08-28] MEDS: LOW STRENGTH ASPIRIN 81 MG PO (08:34)
[2024-08-28] MEDS: TYLENOL 650 MG PO ×2 (08:34→21:25)
--- NOTE | 2024-08-28 10:29 | W.PN.URO.CBU ---
Today's Communication / Plan
-
teach hughes leg bag care if possible
Assessment / Plan
-
await czxs holsd anticholinergics renal bladder u/s reviewed retention and non obstructing stones Hughes placed 1700cc pyuria drained ur cx sent Hold all anticholinerigcs will need hughes at discharge follow up with primary
urologist for urodynamics etc
Diagnosis
-
Date of Service: August 28, 2024
-
Patient Diagnosis:uti and newly diagnosed urtinary retention 1700cc drained and also small renal stones doubt infection stones
Post Op Day:
Patient Diagnosis:uti in past on cipro now mental status change also on vesicare and detrol both of which are associated with dementia as is uti
Post Op Day:
Subjective
-
feeling better
Objective
-
Vital Signs
Temp Pulse Resp BP Pulse Ox
97.9 F 78 16 126/66 96
08/28/24 08:48 08/28/24 08:48 08/28/24 08:48 08/28/24 08:48 08/28/24 08:48
Intake and Output
08/27/24 08/28/24 08/29/24
06:59 06:59 06:59
Intake Total 820 / 820 880 / 880
Output Total 1400 / 1400
Balance 820 / 820 -520 / -520
Intake:
Oral fluids 100 / 100 880 / 880
IV fluids (Total) 720 / 720
Output:
Urine, Huhges 1400 / 1400
Other:
How many times incontinent 1 2
MODERATE amount urine
How many times incontinent 1
SATURATED amount urine
Laboratory Results
08/28/24 04:59
08/28/24 04:59
Review of Systems
-
: Difficulty Voiding
Physical Exam
-
General - well developed, well nourished, no acute distress
Chest - clear bilaterally
Abdomen - soft, non-tender, positive bowel sounds, no CVAT, no incisional pain or distention
Genitalia - normal
Rectal - normal
Skin - warm & dry with no rash
Neuro - AOx3, no motor deficits
Extremities - no clubbing, no cyanosis, no edema
Incision - clean, dry
Dressing - clean, dry, intact
Counseling
-
home with hughes
Care Review
Data Reviewed
Discussed with: Hospitalist and Nursing
Ultrasound: Image Pers Reviewed
--- NOTE | 2024-08-28 13:27 | W.PN.CD ---
Today's Communication / Plan
-
Will sign off today.
Please call with any questions.
Impression / Plan
-
89 year old woman with severe aortic stenosis, recent falls, recurrent UTIs, CAD,transfemoral TAVR (Chicho S3 Ultra 23 mm valve from right femoral artery, Chaz/Selwyn). Patient tolerated the procedure well. Had transient left bundle branch block
that resolved.
Primary Cards: Dr. Arndt
Acute confusion with dysuria likely UTI failed treatment
-Recurrent UTIs has reported pessary ring
-Urology and ID is following
Recent TAVR
-TAVR 08/18
-Groin CDI. RRR. CTAB.
-Echo with mean gradient 10, normal valve appearance, normal LVEF.
Hypotension
-Possible complicated UTI
-Agree to hold Lisinopril
Sinus rhythm on tele.
Cont. ASA
Physical Exam
Vital Signs/Labs
Vital Signs
Temp Pulse Resp BP Pulse Ox
97.9 F 80 16 128/68 95
08/28/24 11:23 08/28/24 11:23 08/28/24 11:23 08/28/24 11:23 08/28/24 11:23
08/27/24 08/28/24 08/29/24
06:59 06:59 06:59
Actual Weight 48.807 kg 46.675 kg
08/28/24 04:59
08/28/24 04:59
08/26/24
13:35
Orv-I-Oujvayopdgs Pept 407
LAB Results
08/26/24 08/26/24 08/26/24
13:35 18:30 21:38
Troponin I 0.094 H* Cancelled 0.087 H*
Physical Exam
Constitutional: No acute distress and Comfortable
EENT: Anicteric and Moist mucous membranes
Cardiovascular: Rhythm & rate is regular, Pedal edema is absent and JVD pressure is normal
Respiratory: Respiratory effort normal, Lungs clear to auscul. and Wheeze Absent
GI: Soft, Non tender and Normal bowel sounds
Neuro/Psych: Alert, Oriented and AO x 3
Data Reviewed
-
Date of Service: August 28, 2024
Medical Decision Making: Test Interpretation and Review of Case with other Provider
EKG: Tracing Personally Visualized and interpreted
Echo: Report Reviewed by me
Labs: Labs Reviewed by me
Old Records: Reviewed
--- NOTE | 2024-08-28 14:08 | W.PN.HOSP.TC ---
Addendum entered and electronically signed by Almas Perry MD 08/28/24 15:24:
call placed and discussed with Dr. Eastman, does not believe anemia associated with the Meropenem
Original Note:
Today's Communication/Plan
-
transfuse 1 unit now
Assessment / Plan
Assessment / Plan
Acute confusion with dysuria likely UTI failed treatment
#Recurrent UTIs has reported pessary ring
#History of Citrobacter amalonaticus on 08/19/2024 treated with ciprofloxacin x 5 days was sensitive to ciprofloxacin (multiple drug-resistant 2 ampicillin sulbactam, Augmentin, Azactam, cefazolin, ceftriaxone, tetracycline)
#Hx of E. coli, Citrobacter on 08/09/2024
-UA +3 leukocytes WBC> 100, many bacteria
UR cx on 08/26 Enterococcus sens pending
- Consulted urology
hughes placed, drained 1699, urology would like to leave hughes for now. Son concerned whether this improves
-Consulted ID
- IV meropenem to continue
- Follow CBC, CMP
# Acute on chronic encephalopathy multifactorial (recent COVID 08/09, anesthesia status post TAVR 08/18, UTI 08/19) worse since 08/15/2024
- Fall precautions
-Neurochecks every 8 hours
CXR: No evidence of acute cardiopulmonary process
CT head: No acute intracranial abnormality. Mild to moderate atrophy. Moderate to severe leukomalacia which appears stable
#Hypotension likely secondary to UTI
BP 92/46 on admission, now 127/64
- Hold lisinopril 20 mg twice daily, hydralazine 25 mg p.o. twice daily, amlodipine 5 mg twice daily, follow BP, consider resumption of antiHTN as BP normalizes
#Nonischemic myocardial injury troponin likely elevated due to recent TAVR 08/18/2024
Troponin 0.094, will monitor
#Abnormal EKG post TAVR
Procedure done 08/18/24
-Consult CBC cardiology
EKG: Sinus rhythm with first-degree AV block 91 bpm, QTc 462 MS, septal infarct now present,
nonspecific T wave abnormality inferior and lateral leads compared to 08/19/2024
#Hyponatremia
History hyponatremia on 08/14/2024 na 123 did receive 1 dose of tolvaptan(samsca)
NA 129-->131-->134
Will check urine NA, urine osmole, serum osmole, TSH with free T4 reflex
- Was on prior fluid restrict 40 ounce but currently hypotensive
#Anemia normocytic
Hgb 9.4-->7.9-->8.2-->7.6.
Fe sat 11%, Ferritin 207
unclear why pt has become anemic. Pt remains on Protonix
Will check stools for occult blood and transfuse
# Chronic hypothyroidism
-Check TSH with free T4 reflex
-Continue levothyroxine 175 mcg p.o. daily
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
2D echo 08/19/2024: EF 65-70%, normal LVSF, no wall abnormalities, TAVR Owen MOISÉS 23 peak mean gradients 19/10 mmHg. Trace AR
#Hx postop LBBB resolved 08/18/2024
#Memory impairment�mild starting May 2023 per son Srinivasa
States she usually knows him can follow directions however very confused this past week
#Hx falls
-Fall precautions
#HLD
- Continue simvastatin 10 mg daily
#Paroxysmal A-fib
- Off Xarelto due to falls
- Continue aspirin 81 mg daily
- No current rate control meds
#factor V Leiden hx
- Patient with bruising bilateral lower legs
#GERD
- Continue omeprazole 20 mg daily
DVT prophylaxis
SCDs
Full code per son Srinivasa at bedside
Met with son and dgt, many concerns
Blood consent obtained from dgt at bedside
Anticipated Discharge: > 48 hours
Subjective/Interval History
-
Date of Service: August 28, 2024
Remains weak, but feels better than when admitted
Objective Data
-
Labs:
Laboratory Results
08/28/24
04:59
WBC 7.7
Hgb 7.6 L
Hct 22.2 L
Plt Count 235
Sodium 134 L
Potassium 3.5
Chloride 103
Carbon Dioxide 27
BUN 16
Creatinine 0.5 L
Glucose 73
Calcium 8.3 L
Total Bilirubin 0.5
AST 24
ALT 16
Alkaline Phosphatase 73
Vital Signs:
Vital Signs
Temp Pulse Resp BP Pulse Ox
97.9 F 80 16 128/68 95
08/28/24 11:23 08/28/24 11:23 08/28/24 11:23 08/28/24 11:23 08/28/24 11:23
I&O
08/27/24 08/28/24 08/29/24
06:59 06:59 06:59
Intake Total 820 / 820 880 / 880
Output Total 1400 / 1400
Balance 820 / 820 -520 / -520
Review of Systems
-
History Source: Patient, Family (son, dgt and gnd dgt in room) and Coordinated Provider
Constitutional: Denies Fever
EENT: Reports No Symptoms Reported
Respiratory: Reports No Symptoms
Cardiac: Reports No Symptoms; Denies Chest Pain
Abdomen/GI: Reports No Symptoms
Neuro: Reports Weakness
Physical Exam
-
General: Well Developed, Appears Chronically Ill and Other (thin)
HEENT: Normocephalic, Atraumatic and Moist Mucous Membranes
Respiratory: Clear to Auscultation; Negative Wheezes, Rales or Rhonchi
Cardiac: Regular Rhythm and S1/S2
GI: Soft, Nontender and Nondistended
Musculoskeletal: No Clubbing, No Cyanosis, No Edema and Other (muscular atrophy)
Neuro: Awake and Alert
[2024-08-28] MEDS: VITAMIN D3 (cholecalciferol) 25 MCG PO (17:42)
[2024-08-28] MEDS: DETROL LA 4 MG PO (17:42)
[2024-08-28] MEDS: OSCAL 500 + D 500 MG PO (17:42)
[2024-08-28] MEDS: SYNTHROID 175 MCG PO (21:26)
[2024-08-29 03:00] VITALS: BP 124/74
[2024-08-29] MEDS: MERREM 500 MG IV ×2 (03:43→12:30)
[2024-08-29] MEDS: STERILE WATER FOR INJECTION 10 ML IV ×2 (03:43→12:30)
[2024-08-29 06:00] VITALS: BMI 18.2
[2024-08-29 06:07] LABS: % Basophils 0.7 % (0-2); % Eosinophils 2.3 % (0-6); % Immature Granulocytes 1.9 % (0-0.5); % Lymphocytes 15.8 % (20.5-51.1); % Monocytes 12.4 % (1.7-9.3); % Neutrophils 66.9 % (42.2-75.2); Absolute Basophils 0.1 10^3/uL (0-0.2); Absolute Eosinophils 0.2 10^3/uL (0-0.7); Absolute Immature Granulocytes 0.1 10^3/uL (0-0.05); Absolute Lymphocytes 1.1 10^3/uL (1.2-3.4); Absolute Monocytes 0.9 10^3/uL (0.1-0.6); Absolute Neutrophils 4.6 10^3/uL (1.4-6.5); Hematocrit 27.8 % (37.0-47.0); Hemoglobin 9.7 g/dL (12.0-16.0); Mean Corp Hgb Conc. 34.9 g/dL (33.0-37.0); Mean Corpuscular Hgb 29.8 pg (27.0-31.0); Mean Corpuscular Volume 85.3 fL (81.0-99.0); Mean Platelet Volume 8.7 fL (7.4-10.4); Nucleated Red Blood Cells % 0 %; Platelet Count 240 10^3/uL (130-400); Red Blood Cell Count 3.26 10^6/uL (4.20-5.40); Red Cell Dist. Width 14.5 % (11.5-14.5); White Blood Cell Count 6.9 10^3/uL (4.8-10.8)
[2024-08-29 06:32] LABS: ALT (SGPT) 15 U/L (0-35); AST (SGOT) 26 U/L (14-36); Albumin 2.3 g/dl (3.5-5.0); Alkaline Phosphatase 75 U/L (38-126); Blood Urea Nitrogen 13 mg/dl (7-17); Calcium 8.6 mg/dl (8.4-10.2); Carbon Dioxide 28 mmol/L (22-30); Chloride 104 mmol/L (98-107); Estimated Creatinine Clearance 47 ml/min; Glucose 75 mg/dl (70-99); Potassium 3.5 mmol/L (3.5-5.1); Sodium 134 mmol/L (135-145); Total Bilirubin 0.9 mg/dl (0.2-1.3); Total Protein 4.7 g/dl (6.3-8.2); eGFR > 60.00
[2024-08-29 07:23] VITALS: BP 148/70
[2024-08-29] MEDS: TYLENOL 650 MG PO ×2 (07:50→20:24)
[2024-08-29] MEDS: SORBITOL 70% 30 ML PO (07:50)
[2024-08-29] MEDS: LIPITOR 10 MG PO (07:50)
[2024-08-29] MEDS: PROTONIX 40 MG PO (07:50)
[2024-08-29] MEDS: LOW STRENGTH ASPIRIN 81 MG PO (07:52)
[2024-08-29] MEDS: ZESTRIL 10 MG PO ×2 (10:24→20:24)
--- NOTE | 2024-08-29 10:55 | W.PN.URO.CBU ---
Today's Communication / Plan
-
keep hughes teach pt family if need be about hughes care contact d/c planning about hughes please
Assessment / Plan
-
await czxs holsd anticholinergics renal bladder u/s reviewed retention and non obstructing stones Hughes placed 1700cc pyuria drained ur cx sent Hold all anticholinerigcs will need hughes at discharge follow up with primary
urologist for urodynamics etc
Diagnosis
-
Date of Service: August 29, 2024
-
Patient Diagnosis:
Post Op Day:
Patient Diagnosis:uti and newly diagnosed urtinary retention 1700cc drained and also small renal stones doubt infection stones
Post Op Day:
Patient Diagnosis:uti in past on cipro now mental status change also on vesicare and detrol both of which are associated with dementia as is uti
Post Op Day:
Subjective
-
feling better with hughes and tx of uti
Objective
-
Vital Signs
Temp Pulse Resp BP Pulse Ox
98.3 F 79 12 148/70 95
08/29/24 07:23 08/29/24 07:23 08/29/24 07:23 08/29/24 07:23 08/29/24 07:23
Intake and Output
08/28/24 08/29/24 08/30/24
06:59 06:59 06:59
Intake Total 880 / 880 730 / 730
Output Total 1400 / 1400 1974
Balance -520 / -520 -1245 / -1245
Intake:
Oral fluids 880 / 880 480 / 480
Blood Product Amount Infused ( 250 / 250
mL)
Packed Rbc Leukoreduced Unit 250 / 250
[id number]
Output:
Urine, Hughes 1400 / 1400 1974
Other:
How many times incontinent 2
MODERATE amount urine
Laboratory Results
08/29/24 05:34
08/29/24 05:34
Review of Systems
-
: Difficulty Voiding
Physical Exam
-
General - well developed, well nourished, no acute distress
Chest - clear bilaterally
Abdomen - soft, non-tender, positive bowel sounds, no CVAT, no incisional pain or distention
Genitalia - normal
Rectal - normal
Skin - warm & dry with no rash
Neuro - AOx3, no motor deficits
Extremities - no clubbing, no cyanosis, no edema
Incision - clean, dry
Dressing - clean, dry, intact
Care Review
Data Reviewed
Discussed with: Nursing
[2024-08-29 11:01] VITALS: BP 131/60
--- NOTE | 2024-08-29 13:08 | W.PN.HOSP.TC ---
Today's Communication/Plan
-
Assessment / Plan
Assessment / Plan
NAD, thin
Scleral Anicteric
MMM
No JVD
CTABL
RRR, S1/S2
Soft, NT, ND, BS+
Warm, Dry
AAOx3
Calm
Toxic metabolic encephalopathy likely secondary to cystitis failed treatment versus medication induced as on multiple anticholinergic with Vesicare and Detrol
- Suspect and believe that encephalopathy now has resolved, please see subjective
- Known history of UTI with MDR's
- Currently on meropenem awaiting sensitivities as urine with enterococci
- ID following
- Urology evaluated recommended to discontinue 2 anticholinergic agents
- CT head no acute intracranial abnormality
Overactive bladder/urinary retention
- Anticholinergic discontinued
- S/p Hubbard catheter
- Urology recommends outpatient follow-up.
Hypertension,
- Due to hypotension antihypertensives have been held such as lisinopril 20 hydralazine 25 twice a day and amlodipine
-As becoming more normotensive/hypertensive will resume antihypertensives slowly with lisinopril 10 mg twice daily
Nonischemic myocardial injury troponin likely elevated due to recent TAVR 08/18/2024
Troponin 0.094
2D echocardiogram without evidence of wall motion abnormalities
Pericardial effusion noted however likely related to recent TAVR
Will continue follow-up with cardiology recommendations
#Abnormal EKG post TAVR
Procedure done 08/18/24
-Consult CBC cardiology
EKG: Sinus rhythm with first-degree AV block 91 bpm, QTc 462 MS, septal infarct now present,
nonspecific T wave abnormality inferior and lateral leads compared to 08/19/2024
#Hyponatremia
History hyponatremia on 08/14/2024 na 123 did receive 1 dose of tolvaptan(samsca)
Stable at 134
#Anemia normocytic
S/p 1 unit PRBC has remained in the nines and stable
Hemodynamically stable
Without evidence of active bleeding
# Chronic hypothyroidism
Continue levothyroxine
Outpatient PCP follow-up for TFTs
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
2D echo 08/19/2024: EF 65-70%, normal LVSF, no wall abnormalities, TAVR Owen MOISÉS 23 peak mean gradients 19/10 mmHg. Trace AR
#Hx postop LBBB resolved 08/18/2024
#Memory impairment�mild starting May 2023 per son Srinivasa
States she usually knows him can follow directions however very confused this past week
#Hx falls
-Fall precautions
#HLD
- Continue simvastatin 10 mg daily
#Paroxysmal A-fib
- Off Xarelto due to falls
- Continue aspirin 81 mg daily
- No current rate control meds
#factor V Leiden hx
- Patient with bruising bilateral lower legs
#GERD
- Continue omeprazole 20 mg daily
DVT prophylaxis
SCDs
Spoke with Jesse over the phone provided update
Begin discharge planning
Physical therapy/Occupational Therapy recommended SNF
Anticipated Discharge: Within 24 hours
Subjective/Interval History
-
Date of Service: August 29, 2024
Seen and examined. No new complaints. No acute overnight events.
She was able to substract from 100- by 3 to 76, spelled world backwards successfully however did take her some time but she was able to tell at
She knows where she is who she has what is going on and why she is in the hospital.
Objective Data
-
Labs:
Laboratory Results
08/29/24
05:34
WBC 6.9
Hgb 9.7 L
Hct 27.8 L
Plt Count 240
Sodium 134 L
Potassium 3.5
Chloride 104
Carbon Dioxide 28
BUN 13
Creatinine 0.5 L
Glucose 75
Calcium 8.6
Total Bilirubin 0.9
AST 26
ALT 15
Alkaline Phosphatase 75
Vital Signs:
Vital Signs
Temp Pulse Resp BP Pulse Ox
97.5 F 80 12 131/60 96
08/29/24 11:01 08/29/24 11:01 08/29/24 11:01 08/29/24 11:01 08/29/24 11:01
I&O
08/28/24 08/29/24 08/30/24
06:59 06:59 06:59
Intake Total 880 / 880 730 / 730
Output Total 1400 / 1400 1974 / 1974
Balance -520 / -520 -1245 / -1245
--- NOTE | 2024-08-29 14:10 | CM ---
Patient seen at bedside
PT rec SNF
Referral in [facility] for [facility]
Spoke with Miriam [phone] from [facility] SNF they do not use [facility]. CM faxed clinicals [phone]
Per daughter they are also starting process at [facility] for placement
PLAN: SNF, pending bed availability, will need insurance authorization
--- NOTE | 2024-08-29 14:46 | PN.CDI ---
CDI
- -
CDI:
Physician Documentation Request
Admit Date: 08/26/24 18:45
Dear Doctor Mihai,
Clinical Indicators:
Patient admitted with toxic metabolic encephalopathy.
PMH include recurrent UTIs, overactive bladder & urinary retention.
4/7 PN, 'Toxic metabolic encephalopathy likely secondary to cystitis failed treatment..'
Please clarify which of the following accurately represents the acuity of the cystitis . Possible options might include:
Acute Cystitis
Acute on Chronic cystitis
Chronic cystitis
Other
Use of terms such as suspected, likely, concern for, or probable (associated with a specific diagnosis that is being evaluated, monitored, or treated as if it exists) are acceptable and can be coded in the inpatient setting, when documented at the
time of discharge.
Thank you,
Nieves Olivera RN BSN
CDI Specialist
available via tiger text
Please use your independent medical judgment in providing your response.
[2024-08-29 15:35] VITALS: BP 132/62
[2024-08-29 15:52] VITALS: BMI 18.2
--- NOTE | 2024-08-29 16:16 | W.PN.ID1 ---
Date of Service
Date of Service: August 29, 2024
Today's Communication
Transition meropenem to linezolid.
Assessment / Plan
Generalized weakness
Encephalopathy
Bacteriuria/pyuria; complicated urinary tract infection with VRE
Hyponatremia
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
CAD
HTN
Dyslipidemia
Hx hypothyroidism
Recommendations:
Discontinue meropenem.
Begin Zyvox 600 mg p.o. twice daily. Tx for 10-4 days.
Follow-up UA/reflex culture 2 weeks following completion of therapy.
����������������������������������������������������������
Chief Complaint
-: UTI
Subjective / Review of Systems
Review of Systems: No Fever and No Chills
Vital Signs / Physical Exam
Vital Signs
Vital Signs
Temp Pulse Resp BP Pulse Ox
98.4 F 78 16 132/62 97
08/29/24 15:35 08/29/24 15:35 08/29/24 15:35 08/29/24 15:35 08/29/24 15:35
Physical Exam
Constitutional: No Acute Distress, Comfortable, Chronically Ill, Non-toxic and Cachetic
Cardiovascular: S1/S2; Negative S3/S4
Pulmonary: Clear; Negative Wheezes or Rales
Neurological: Awake and Alert
Psychological: Calm
Objective Data
Lab Data
Lab Results
08/29/24 05:34
08/29/24 05:34
Estimated Creat Clear 47 ml/min 08/29/24 05:34
Lactic Acid < 0.5 mmol/L (0.7-2.0) L 08/26/24 21:38
Total Bilirubin 0.9 mg/dl (0.2-1.3) 08/29/24 05:34
AST 26 U/L (14-36) 08/29/24 05:34
ALT 15 U/L (0-35) 08/29/24 05:34
Alkaline Phosphatase 75 U/L (38-126) 08/29/24 05:34
Most recent labs reviewed.
Micro Results:
08/26/24 13:35 Urine Culture - Final
Urine Enterococcus faecium - VRE
08/27/24 17:57 Urine Culture - Final
Urine Enterococcus faecium - VRE
08/26/24 23:48 MRSA Screen - Final
Nose No Methicillin Resistant Staphylococcus aureus isolated.
08/26/24 13:35 Influenza Types A & B (JAGDEEP) - Final
Nasal Swab Negative for Influenza A & B, NAAT
Negative results must be combined with clinical observations
and patient history.
Nucleic Acid Amplification test (NAAT)performed on the
[employer] platform.
Imaging:
08/27/2024 Renal ultrasound: Subcentimeter nonobstructing bilateral renal calculi. No hydronephrosis. Layering debris within the urinary bladder, possibly sequelae of cystitis.
08/26/24 CT head without contrast: No evidence of acute intracranial abnormality
08/26/2024 CXR (portable): No evidence of acute cardiopulmonary disease.
[2024-08-29] MEDS: DETROL LA 4 MG PO (17:54)
[2024-08-29] MEDS: VITAMIN D3 (cholecalciferol) 25 MCG PO (17:55)
[2024-08-29] MEDS: OSCAL 500 + D 500 MG PO ×2 (17:55)
[2024-08-29 19:00] VITALS: BP 143/73
[2024-08-29] MEDS: ZYVOX 600 MG PO (20:25)
[2024-08-29] MEDS: SYNTHROID 175 MCG PO (21:48)
[2024-08-29 23:00] VITALS: BP 127/67
[2024-08-30] VITALS (8 sets, daily range): BP systolic 118–155; BP diastolic 62–71; PULSE 76; O2SAT 95–96; BMI 18.3
[2024-08-30 06:24] LABS: % Basophils 0.7 % (0-2); % Eosinophils 1.8 % (0-6); % Immature Granulocytes 1.8 % (0-0.5); % Lymphocytes 17.1 % (20.5-51.1); % Monocytes 12.2 % (1.7-9.3); % Neutrophils 66.4 % (42.2-75.2); Absolute Basophils 0.1 10^3/uL (0-0.2); Absolute Eosinophils 0.1 10^3/uL (0-0.7); Absolute Immature Granulocytes 0.1 10^3/uL (0-0.05); Absolute Lymphocytes 1.3 10^3/uL (1.2-3.4); Absolute Monocytes 0.9 10^3/uL (0.1-0.6); Absolute Neutrophils 4.9 10^3/uL (1.4-6.5); Hemoglobin 10.1 g/dL (12.0-16.0); Mean Corp Hgb Conc. 33.7 g/dL (33.0-37.0); Mean Corpuscular Hgb 28.7 pg (27.0-31.0); Mean Corpuscular Volume 85.2 fL (81.0-99.0); Mean Platelet Volume 8.6 fL (7.4-10.4); Nucleated Red Blood Cells % 0 %; Platelet Count 253 10^3/uL (130-400); Red Blood Cell Count 3.52 10^6/uL (4.20-5.40); Red Cell Dist. Width 14.6 % (11.5-14.5); White Blood Cell Count 7.4 10^3/uL (4.8-10.8)
[2024-08-30 07:19] LABS: ALT (SGPT) 15 U/L (0-35); AST (SGOT) 25 U/L (14-36); Albumin 2.3 g/dl (3.5-5.0); Alkaline Phosphatase 78 U/L (38-126); Blood Urea Nitrogen 13 mg/dl (7-17); Calcium 8.4 mg/dl (8.4-10.2); Carbon Dioxide 30 mmol/L (22-30); Chloride 101 mmol/L (98-107); Estimated Creatinine Clearance 45 ml/min; Glucose 80 mg/dl (70-99); Potassium 3.4 mmol/L (3.5-5.1); Sodium 132 mmol/L (135-145); Total Bilirubin 0.5 mg/dl (0.2-1.3); Total Protein 4.7 g/dl (6.3-8.2); eGFR > 60.00
[2024-08-30] MEDS: TYLENOL 650 MG PO ×2 (08:37→20:34)
[2024-08-30] MEDS: PROTONIX 40 MG PO (08:37)
[2024-08-30] MEDS: ZYVOX 600 MG PO ×2 (08:37→20:34)
[2024-08-30] MEDS: KCL ELIXIR 40 MEQ PO (08:37)
[2024-08-30] MEDS: ZESTRIL 10 MG PO ×2 (08:37→20:34)
[2024-08-30] MEDS: LOW STRENGTH ASPIRIN 81 MG PO (08:37)
[2024-08-30] MEDS: LIPITOR 10 MG PO (08:37)
[2024-08-30] MEDS: DULCOLAX 10 MG RECTAL (10:18)
[2024-08-30] MEDS: MIRALAX 17 GRAMS PO (10:18)
--- NOTE | 2024-08-30 12:18 | W.PN.HOSP.TC ---
Today's Communication/Plan
-
Assessment / Plan
Assessment / Plan
NAD, thin
Scleral Anicteric
MMM
No JVD
CTABL
RRR, S1/S2
Soft, NT, ND, BS+
Warm, Dry
AAOx3
Calm
Toxic metabolic encephalopathy likely secondary to cystitis failed treatment versus medication induced as on multiple anticholinergic with Vesicare and Detrol
- Suspect and believe that encephalopathy now has resolved, please see subjective
- Known history of UTI with MDR's
- Currently on meropenem awaiting sensitivities as urine with enterococci
- ID following
- Urology evaluated recommended to discontinue 2 anticholinergic agents
- CT head no acute intracranial abnormality
Gait abnormality
Will have neurology evaluate
PT/OT evaluation
Overactive bladder/urinary retention
- Anticholinergic discontinued
- S/p Hubbard catheter
- Urology recommends outpatient follow-up.
Hypertension,
- Due to hypotension antihypertensives have been held such as lisinopril 20 hydralazine 25 twice a day and amlodipine
-As becoming more normotensive/hypertensive will resume antihypertensives slowly with lisinopril 10 mg twice daily
Nonischemic myocardial injury troponin likely elevated due to recent TAVR 08/18/2024
Troponin 0.094
2D echocardiogram without evidence of wall motion abnormalities
Pericardial effusion noted however likely related to recent TAVR
Will continue follow-up with cardiology recommendations
#Abnormal EKG post TAVR
Procedure done 08/18/24
-Consult CBC cardiology
EKG: Sinus rhythm with first-degree AV block 91 bpm, QTc 462 MS, septal infarct now present,
nonspecific T wave abnormality inferior and lateral leads compared to 08/19/2024
#Hyponatremia
History hyponatremia on 08/14/2024 na 123 did receive 1 dose of tolvaptan(samsca)
Stable at 134
#Anemia normocytic
S/p 1 unit PRBC has remained in the nines and stable
Hemodynamically stable
Without evidence of active bleeding
# Chronic hypothyroidism
Continue levothyroxine
Outpatient PCP follow-up for TFTs
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
2D echo 08/19/2024: EF 65-70%, normal LVSF, no wall abnormalities, TAVR Owen MOISÉS 23 peak mean gradients 19/10 mmHg. Trace AR
#Hx postop LBBB resolved 08/18/2024
#Memory impairment�mild starting May 2023 per son Srinivasa
States she usually knows him can follow directions however very confused this past week
#Hx falls
-Fall precautions
#HLD
- Continue simvastatin 10 mg daily
#Paroxysmal A-fib
- Off Xarelto due to falls
- Continue aspirin 81 mg daily
- No current rate control meds
#factor V Leiden hx
- Patient with bruising bilateral lower legs
#GERD
- Continue omeprazole 20 mg daily
DVT prophylaxis
SCDs
Spoke with Jesse over the phone provided update
Begin discharge planning
Physical therapy/Occupational Therapy recommended SNF
Anticipated Discharge: Within 24 hours
Subjective/Interval History
-
Date of Service: August 30, 2024
Seen and examined. No new complaints. No acute overnight events.
I spoke with her daughter Denia Ravi yesterday over the phone. This morning son Srinivasa was at bedside and was provided with an update.
Ms. Ravi was concerned about pigeon toed feet while standing and knees touching. I informed her this is likely secondary to deconditioning and will need continued physical therapy. They also asked for neurological evaluation. I informed them at
this time CT brain was completed this did not show anything. There are no significant focal neurological deficits on exam to suspect a neurological condition. Again I reiterated that this is likely secondary to deconditioning as she has been
hospitalized multiple times in has received limited physical therapy. She would need to continue physical therapy at a custodial facility upon discharge. She also asked if she could go to acute inpatient rehab I informed her typically with
acute inpatient rehab, mom would need to be able to do 3 hours of physical therapy daily and at this time she is not strong enough to do this. Therefore would recommend for her to go to a SNF to regain her strength and eventually from SNF
potentially physical therapy there could recommend upgrade to a rehab facility.
Srinivasa this morning was asking me about Hubbard catheter if she could be in the community with a Hubbard catheter in at a facility. How would she be able to get around if she able to wear pants with a Hubbard catheter. I told him yes will be able to wear
a Hubbard catheter in the community where pants with a Hubbard bag that is a leg bag. I informed him there is many people in the community which are ambulating that you do not know that have Hubbard's but they do.
He was also asking if there are special boots to correct the pigeon toed and I informed him I do not believe so. He went on to proceed the best nurse in the ER told him that there was. I said that he would probably have to speak with physical
therapy about this.
[facility] [employer] [facility] I received a message stating that neurology should evaluate her from physical therapy for the pigeon toed as this was abnormal however there is still no focal neurological deficit.
Objective Data
-
Labs:
Laboratory Results
08/30/24
06:14
WBC 7.4
Hgb 10.1 L
Hct 30.0 L
Plt Count 253
Sodium 132 L
Potassium 3.4 L
Chloride 101
Carbon Dioxide 30
BUN 13
Creatinine 0.5 L
Glucose 80
Calcium 8.4
Total Bilirubin 0.5
AST 25
ALT 15
Alkaline Phosphatase 78
Vital Signs:
Vital Signs
Temp Pulse Resp BP Pulse Ox
97.6 F 76 16 118/62 96
08/30/24 11:23 08/30/24 11:23 08/30/24 11:23 08/30/24 11:23 08/30/24 11:23
I&O
08/29/24 08/30/24 08/31/24
06:59 06:59 06:59
Intake Total 730 / 730
Output Total 1974 625 / 625
Balance -1245 / -1245 -625 / -625
--- NOTE | 2024-08-30 13:04 | CM ---
Patient seen at bedside
PT/OT to eval
neurology to evaluate
Spoke with Miriam from [facility] & updated
Will need to obtain auth prior to discharge to SNF
PLAN: SNF, will need auth
--- NOTE | 2024-08-30 14:30 | PN.CDI ---
CDI
- -
CDI:
Physician Documentation Request
Admit Date: 08/26/24 18:45
Dear Doctor Mihai,
Clinical Indicators:
Patient admitted with toxic metabolic encephalopathy.
08/29 note/assessment: -'...reflective of a 7 lb (7%) weight loss in 1 month'
-Subcutaneous loss: Rib Cage-Moderate Muscle Loss: Quads-Moderate Clavicle-Moderate
-'With observed muscle and fat wasting and > 5% weight loss in 1 month pt meets
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
Based on the above information and your assessment, which of the following most accurately represents the patient's nutritional status?
Moderate Protein Calorie Malnutrition
Other (please specify)
Berlin Criteria ([facility] Hospitalist 2017)
2 or more criteria must be present for either
non severe or severe malnutrition
Note that the criteria differs related to the
presence of an acute or chronic illness
Acute Illness Chronic Illness
Energy Intake Non Severe: <75% for >7 days Non Severe: <75% for >1 month
Severe: <50% for >5 days Severe: <75% for >1 month
Weight Loss Non Severe: 1-2% over 1 week Non Severe: 5% over 1 month
5% over 1 month 7.5% over 3 months
7.5% over 3 months 10% over 6 months
1 year N/A 20% over 1 year
Severe: >2% over 1 week Severe: >5% over 1 month
>5% over 1 month >7.5% over 3 months
>7.5% over 3 months >10% over 6 months
1 year N/A >20% over 1 year
Body Fat Non Severe: Mild Decrease Non Severe: Mild Loss
Severe: Moderate Decrease Severe: Severe Loss
Muscle Mass Non Severe: Mild Decrease Non Severe: Mild Loss
Severe: Moderate Decrease Severe: Severe Loss
Fluid Accumulation Non Severe: Mild Accumulation Non Severe: Mild Accumulation
Severe: Moderate to severe Severe: Moderate to severe
accumulation accumulation
Reduced Collar Stay Fuser Tender Strength Non Severe: N/A Non Severe: N/A
Severe: Measurably reduced Severe: Measurably reduced
Additional criteria that can be used to Determine if Mild or Moderate Malnutrition (Merck Manual 2018)
Mild Moderate Severe
Albumin gm/dl <3.0 gm/dl <2.5 gm/dl <2.0 gm/dl
Pre Albumin mg/dl <15 gm/dl <10 mg/dl <5.0 mg/dl
BMI <18.5 <17 <16
Use of terms such as suspected, likely, concern for, or probable (associated with a specific diagnosis that is being evaluated, monitored, or treated as if it exists) are acceptable and can be coded in the inpatient setting, when documented at the
time of discharge.
Thank you,
Nieves Olivera RN BSN
CDI Specialist
available via tiger text
Please use your independent medical judgment in providing your response.
--- NOTE | 2024-08-30 14:55 | W.PN.ID1 ---
Date of Service
Date of Service: August 30, 2024
Today's Communication
Continue antibiotics.
Assessment / Plan
Generalized weakness
Encephalopathy
Bacteriuria/pyuria; complicated urinary tract infection with VRE
Hyponatremia
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
CAD
HTN
Dyslipidemia
Hx hypothyroidism
Recommendations:
Begin Zyvox 600 mg p.o. twice daily to continue through 09/12 (14 days tx)
Follow-up UA/reflex culture 2 weeks following completion of therapy.
Follow platelets while patient remains on linezolid.
����������������������������������������������������������
Chief Complaint
-: UTI
Subjective / Review of Systems
Review of Systems: No Fever and No Chills
Vital Signs / Physical Exam
Vital Signs
Vital Signs
Temp Pulse Resp BP Pulse Ox
97.6 F 76 16 118/62 96
08/30/24 11:23 08/30/24 11:23 08/30/24 11:23 08/30/24 11:23 08/30/24 11:23
Physical Exam
Constitutional: No Acute Distress, Comfortable, Chronically Ill, Non-toxic and Cachetic
Cardiovascular: S1/S2; Negative S3/S4
Pulmonary: Clear; Negative Wheezes or Rales
Genito-Urinary: Hubbard and Clear Urine
Neurological: Awake and Alert
Psychological: Calm
Objective Data
Lab Data
Lab Results
08/30/24 06:14
08/30/24 06:14
Estimated Creat Clear 45 ml/min 08/30/24 06:14
Lactic Acid < 0.5 mmol/L (0.7-2.0) L 08/26/24 21:38
Total Bilirubin 0.5 mg/dl (0.2-1.3) 08/30/24 06:14
AST 25 U/L (14-36) 08/30/24 06:14
ALT 15 U/L (0-35) 08/30/24 06:14
Alkaline Phosphatase 78 U/L (38-126) 08/30/24 06:14
Most recent labs reviewed.
Micro Results:
08/26/24 13:35 Urine Culture - Final
Urine Enterococcus faecium - VRE
08/27/24 17:57 Urine Culture - Final
Urine Enterococcus faecium - VRE
08/26/24 23:48 MRSA Screen - Final
Nose No Methicillin Resistant Staphylococcus aureus isolated.
08/26/24 13:35 Influenza Types A & B (JAGDEEP) - Final
Nasal Swab Negative for Influenza A & B, NAAT
Negative results must be combined with clinical observations
and patient history.
Nucleic Acid Amplification test (NAAT)performed on the
[employer] platform.
Imaging:
08/27/2024 Renal ultrasound: Subcentimeter nonobstructing bilateral renal calculi. No hydronephrosis. Layering debris within the urinary bladder, possibly sequelae of cystitis.
08/26/24 CT head without contrast: No evidence of acute intracranial abnormality
08/26/2024 CXR (portable): No evidence of acute cardiopulmonary disease.
--- NOTE | 2024-08-30 16:39 | W.PN.URO.CBU ---
Today's Communication / Plan
-
plan per hospitalist home with hughes
Assessment / Plan
-
CONTINUE ZYVOX hold anticholinergics renal bladder u/s reviewed retention and non obstructing stones Hughes placed 1700cc pyuria drained ur cx sent Hold all anticholinerigcs will need hughes at discharge follow up with
primary urologist for urodynamics etc
Diagnosis
-
Date of Service: August 30, 2024
-
Patient Diagnosis:
Post Op Day:
Patient Diagnosis:
Post Op Day:
Patient Diagnosis:uti and newly diagnosed urtinary retention 1700cc drained and also small renal stones doubt infection stones
Post Op Day:
Patient Diagnosis:uti in past on cipro now mental status change also on vesicare and detrol both of which are associated with dementia as is uti
Post Op Day:
Subjective
-
FEELS HIMANSHU
Objective
-
Vital Signs
Temp Pulse Resp BP Pulse Ox
97.9 F 76 16 134/65 96
08/30/24 15:50 08/30/24 15:50 08/30/24 15:50 08/30/24 15:50 08/30/24 15:50
Intake and Output
08/29/24 08/30/24 08/31/24
06:59 06:59 06:59
Intake Total 730 / 730
Output Total 1974 625 / 625
Balance -1245 / -1245 -625 / -625
Intake:
Oral fluids 480 / 480
Blood Product Amount Infused ( 250 / 250
mL)
Packed Rbc Leukoreduced Unit 250 / 250
[id number]
Output:
Urine, Hughes 1974 625 / 625
Laboratory Results
08/30/24 06:14
08/30/24 06:14
Review of Systems
-
: Difficulty Voiding
Physical Exam
-
General - well developed, well nourished, no acute distress
Chest - clear bilaterally
Abdomen - soft, non-tender, positive bowel sounds, no CVAT, no incisional pain or distention
Genitalia - normal
Rectal - normal
Skin - warm & dry with no rash
Neuro - AOx3, no motor deficits
Extremities - no clubbing, no cyanosis, no edema
Incision - clean, dry
Dressing - clean, dry, intact
Counseling
-
continue present plan
Care Review
Data Reviewed
Discussed with: Hospitalist and Nursing
[2024-08-30] MEDS: DETROL LA 4 MG PO (17:05)
[2024-08-30] MEDS: VITAMIN D3 (cholecalciferol) 25 MCG PO (17:05)
--- NOTE | 2024-08-30 18:04 | CON.NEURO ---
Neuro Assessment/Plan
Assessment
Folate 13, B12 780
89 year old woman with 1-2 months progressive leg weakness
exam weakness distal > proximal, decreased tone, areflexia, severe vibratory loss in the knees.
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 only thing that doesn't fit is urinary retention.
Exam also with Parkinson's.
Plan
SPEP
EMG - spoke with Dr Tsang, likely
Consultation
Order
Date of Consultation: 08/30/24
Requesting Provider: Branden Holm
Reason for Consult: weakness, leg deformity
Subjective/Objective
Subjective Data
Date of Service: August 30, 2024
She is an 89 year old woman admitted for pyelonephritis, encephalopathy - now resolved
reported 1-2 months gait abnormality, frequent falls, feet inverted bilaterally, jerky movements of bilateral lower extremities.
newly found to have urinary retention.
Objective Data
Vital Signs
Temp Pulse Resp BP Pulse Ox
36.6 C 76 16 134/65 96
08/30/24 15:50 08/30/24 15:50 08/30/24 15:50 08/30/24 15:50 08/30/24 15:50
Lab Results
08/30/24 06:14
08/30/24 06:14
Sodium 132 mmol/L (135-145) L 08/30/24 06:14
Potassium 3.4 mmol/L (3.5-5.1) L 08/30/24 06:14
BUN 13 mg/dl (7-17) 08/30/24 06:14
Glucose 80 mg/dl (70-99) 08/30/24 06:14
Calcium 8.4 mg/dl (8.4-10.2) 08/30/24 06:14
Xsm-L-Bfzjtlbvdlk Pept 407 pg/ml 08/26/24 13:35
Vitamin B12 780 pg/ml (323-888) 08/26/24 13:35
Patient Allergies
amoxicillin Allergy (Verified 08/26/24 13:32)
Unknown
clavulanic acid [From Augmentin] Allergy (Verified 08/26/24 13:32)
Rash
hydrochlorothiazide Allergy (Verified 08/26/24 13:32)
Rash
Physical Exam
-
elderly, frail
AAOx3, speech clear, slow to process
VFF, EOMI, face symmetric
full strength b/l UE, b/l LE distal > proximal weakness, antigravity, decreased tone, +cogwheel rigidity, +bradykinesia
areflexic x4
sensation intact touch/pin; absent vibration at knees
Medications
-
Active Medications
Generic Name Dose Route Start Last Admin
Trade Name Freq PRN Reason Stop Dose Admin
Acetaminophen 650 mg 08/26/24 22:06 08/30/24 08:37
Acetaminophen 325 Mg Tablet PO 09/23/24 22:05 650 mg
BID CHRISTIN Administration
Aspirin 81 mg 08/27/24 08:00 08/30/24 08:37
Aspirin 81 Mg Chewable Tablet PO 09/24/24 07:59 81 mg
DAILY CHRISTIN Administration
Atorvastatin Calcium 10 mg 08/27/24 08:00 08/30/24 08:37
Atorvastatin (Lipitor) 10 Mg Tablet PO 09/24/24 07:59 10 mg
DAILY CHRISTIN Administration
Bisacodyl 10 mg 08/30/24 09:50 08/30/24 10:18
Bisacodyl 10 Mg Rectal Suppository RECTAL 09/27/24 09:49 10 mg
DAILYPRN PRN Administration
constipation
Calcium/Vitamin D 500 mg 08/27/24 18:00 08/29/24 17:55
Calcium Carbonate 500 Mg/Vitamin D 5 Mcg (200 Units) Tablet PO 09/24/24 17:59 500 mg
QPM CHRISTIN Administration
Cholecalciferol 25 mcg 08/27/24 18:00 08/30/24 17:05
Cholecalciferol (Vitamin D3) 25 Mcg Tablet (1,000 Units) PO 09/24/24 17:59 25 mcg
QPM CHRISTIN Administration
Levothyroxine Sodium 175 mcg 08/26/24 22:06 08/29/24 21:48
Levothyroxine 175 Mcg Tablet PO 09/23/24 22:05 175 mcg
HS CHRISTIN Administration
Linezolid 600 mg 08/29/24 20:00 08/30/24 08:37
Linezolid 600 Mg Tablet PO 600 mg
BID CHRISTIN Administration
Lisinopril 10 mg 08/29/24 09:00 08/30/24 08:37
Lisinopril 10 Mg Tablet PO 09/26/24 08:59 10 mg
BID CHRISTIN Administration
Pantoprazole Sodium 40 mg 08/27/24 08:00 08/30/24 08:37
Pantoprazole 40 Mg Delayed Release Tablet PO 09/24/24 07:59 40 mg
DAILY CHRISTIN Administration
Polyethylene Glycol 17 grams 08/30/24 10:00 08/30/24 10:18
Polyethylene Glycol Powder 17 Grams Packet PO 09/27/24 09:59 17 grams
DAILY CHRISTIN Administration
Sodium Chloride 0 flush 08/26/24 20:00
Sodium Chloride 0.9% (Flush) Syringe IV 09/23/24 19:59
PER PROTOCOL CHRISTIN
Sorbitol 30 ml 08/27/24 08:00 08/29/24 07:50
Sorbitol 70% (Oral Solution) 30 Ml Cup PO 09/24/24 07:59 30 ml
Q48H CHRISTIN Administration
Tolterodine Tartrate 4 mg 08/27/24 18:00 08/30/24 17:05
Tolterodine 4 Mg Extended Release Capsule PO 09/24/24 17:59 4 mg
QPM CHRISTIN Administration
Home Medications
�Medication �Instructions �Recorded
cholecalciferol (vitamin D3) 25 1,000 units PO QPM Supplement 04/05/20
mcg (1,000 unit) tablet
levothyroxine 175 mcg tablet 175 mcg PO HS Thyroid 04/05/20
simvastatin 10 mg tablet 10 mg PO DAILY High Cholesterol 04/05/20
nitroglycerin 0.4 mg sublingual 0.4 mg sublingual [id number] PRN 10/02/23
tablet chest pain #25 tabs
aspirin 81 mg chewable tablet 81 mg PO DAILY #30 tabs 08/12/24
omeprazole 20 mg capsule,delayed 20 mg PO DAILY Gastrointestinal 08/18/24
release Issue
sorbitol 70 % solution 30 ml PO Q48H Constipation 08/18/24
acetaminophen 325 mg tablet 650 mg PO BID Pain 08/26/24
acetaminophen 325 mg tablet 650 mg PO Q6HPRN PRN mild 08/26/24
pain,fever>100.5
calcium 600 mg (as 1 tab PO QPM Supplement 08/26/24
carbonate)-vitamin D3 20 mcg (800
unit) tablet
conjugated estrogens 0.625 mg/gram 0.625 mg vaginal MOTH Hormonal 08/26/24
vaginal cream (Premarin) Agent
linezolid 600 mg tablet 600 mg PO BID #20 tabs 08/30/24
lisinopril 10 mg tablet 10 mg PO BID #60 tabs 08/30/24
[2024-08-30] MEDS: SYNTHROID 175 MCG PO (21:35)
[2024-08-31 03:01] VITALS: BP 143/67
[2024-08-31 05:00] VITALS: BMI 18.3
[2024-08-31 07:27] VITALS: BP 170/82
[2024-08-31] MEDS: ZESTRIL 10 MG PO ×2 (08:48→20:00)
[2024-08-31] MEDS: LOW STRENGTH ASPIRIN 81 MG PO (08:48)
[2024-08-31] MEDS: TYLENOL 650 MG PO ×2 (08:49→20:00)
[2024-08-31] MEDS: LIPITOR 10 MG PO (08:49)
[2024-08-31] MEDS: MIRALAX 17 GRAMS PO (08:50)
[2024-08-31] MEDS: PROTONIX 40 MG PO (08:50)
[2024-08-31] MEDS: ZYVOX 600 MG PO ×2 (08:50→20:00)
[2024-08-31] MEDS: SORBITOL 70% 30 ML PO (08:51)
[2024-08-31 11:07] VITALS: BP 137/68
--- NOTE | 2024-08-31 11:36 | W.PN.HOSP.TC ---
Addendum entered and electronically signed by Branden Holm MD 08/31/24 15:26:
Acute Cystitis
moderate protein calorie malnutrition
Original Note:
Today's Communication/Plan
-
Assessment / Plan
Assessment / Plan
NAD, thin
Scleral Anicteric
MMM
No JVD
CTABL
RRR, S1/S2
Soft, NT, ND, BS+
Warm, Dry
Bilateral feet rotated and removed
AAOx3
Calm
Toxic metabolic encephalopathy likely secondary to cystitis failed treatment versus medication induced as on multiple anticholinergic with Vesicare and Detrol
- Suspect and believe that encephalopathy now has resolved, please see subjective
- Known history of UTI with MDR's
- Currently on meropenem awaiting sensitivities as urine with enterococci
- ID following
- Urology evaluated recommended to discontinue 2 anticholinergic agents
- CT head no acute intracranial abnormality
Gait abnormality
Will have neurology evaluate
-Concern for CIDP or axonal neuropathy
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
PT/OT evaluation
Overactive bladder/urinary retention
- Anticholinergic discontinued
- S/p Hubbard catheter
- Urology recommends outpatient follow-up.
Hypertension,
- Due to hypotension antihypertensives have been held such as lisinopril 20 hydralazine 25 twice a day and amlodipine
-As becoming more normotensive/hypertensive will resume antihypertensives slowly with lisinopril 10 mg twice daily
Nonischemic myocardial injury troponin likely elevated due to recent TAVR 08/18/2024
Troponin 0.094
2D echocardiogram without evidence of wall motion abnormalities
Pericardial effusion noted however likely related to recent TAVR
Will continue follow-up with cardiology recommendations
#Abnormal EKG post TAVR
Procedure done 3/27/25
-Consult CBC cardiology
EKG: Sinus rhythm with first-degree AV block 91 bpm, QTc 462 MS, septal infarct now present,
nonspecific T wave abnormality inferior and lateral leads compared to 08/19/2024
#Hyponatremia
History hyponatremia on 08/14/2024 na 123 did receive 1 dose of tolvaptan(samsca)
Stable at 134
#Anemia normocytic
S/p 1 unit PRBC has remained in the nines and stable
Hemodynamically stable
Without evidence of active bleeding
# Chronic hypothyroidism
Continue levothyroxine
Outpatient PCP follow-up for TFTs
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
2D echo 08/19/2024: EF 65-70%, normal LVSF, no wall abnormalities, TAVR Owen MOISÉS 23 peak mean gradients 19/10 mmHg. Trace AR
#Hx postop LBBB resolved 08/18/2024
#Memory impairment�mild starting May 2023 per son Srinivasa
States she usually knows him can follow directions however very confused this past week
#Hx falls
-Fall precautions
#HLD
- Continue simvastatin 10 mg daily
#Paroxysmal A-fib
- Off Xarelto due to falls
- Continue aspirin 81 mg daily
- No current rate control meds
#factor V Leiden hx
- Patient with bruising bilateral lower legs
#GERD
- Continue omeprazole 20 mg daily
DVT prophylaxis
SCDs
Spoke with Jesse over the phone provided update
Begin discharge planning
Physical therapy/Occupational Therapy recommended SNF
Anticipated Discharge: Within 24 hours
Subjective/Interval History
-
Date of Service: August 31, 2024
Seen and examined. No new complaints. No acute overnight events.
Evaluated by neurology concern for CIDP pending EMG
Objective Data
-
Vital Signs:
Vital Signs
Temp Pulse Resp BP Pulse Ox
98.0 F 80 17 137/68 95
08/31/24 11:07 08/31/24 11:07 08/31/24 11:07 08/31/24 11:07 08/31/24 11:07
I&O
08/30/24 08/31/24 09/01/24
06:59 06:59 06:59
Intake Total 840 / 840
Output Total 625 / 625 1550 / 1550
Balance -625 / -625 -710 / -710
--- NOTE | 2024-08-31 14:32 | CM ---
Patient seen at bedside
neurology saw patient - patient to have EMG
updated Miriam at [facility]
PLAN: [facility] SNF when stable, will need to obtain authorization
--- NOTE | 2024-08-31 14:47 | W.PN.ID1 ---
Date of Service
Date of Service: August 31, 2024
Today's Communication
Continue antibiotics.
Assessment / Plan
Generalized weakness
Encephalopathy
Bacteriuria/pyuria; complicated urinary tract infection with VRE
Hyponatremia
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
CAD
HTN
Dyslipidemia
Hx hypothyroidism
Recommendations:
Continue Zyvox 600 mg p.o. twice daily to continue through 09/12 (14 days tx)
Follow-up UA/reflex culture 2 weeks following completion of therapy.
Follow platelets weekly while patient remains on linezolid.
����������������������������������������������������������
Chief Complaint
-: UTI
Subjective / Review of Systems
Review of Systems: No Fever
Vital Signs / Physical Exam
Vital Signs
Vital Signs
Temp Pulse Resp BP Pulse Ox
98.0 F 80 17 137/68 95
08/31/24 11:07 08/31/24 11:07 08/31/24 11:07 08/31/24 11:07 08/31/24 11:07
Physical Exam
Constitutional: No Acute Distress, Comfortable, Chronically Ill, Non-toxic and Cachetic
Cardiovascular: S1/S2; Negative S3/S4
Pulmonary: Clear; Negative Wheezes or Rales
Genito-Urinary: Hubbard and Clear Urine
Neurological: Alert and Other (Resting comfortably.)
Psychological: Calm
Objective Data
Lab Data
Lab Results
08/30/24 06:14
08/30/24 06:14
Estimated Creat Clear 45 ml/min 08/30/24 06:14
Lactic Acid < 0.5 mmol/L (0.7-2.0) L 08/26/24 21:38
Total Bilirubin 0.5 mg/dl (0.2-1.3) 08/30/24 06:14
AST 25 U/L (14-36) 08/30/24 06:14
ALT 15 U/L (0-35) 08/30/24 06:14
Alkaline Phosphatase 78 U/L (38-126) 08/30/24 06:14
Most recent labs reviewed.
Micro Results:
08/26/24 13:35 Urine Culture - Final
Urine Enterococcus faecium - VRE
08/27/24 17:57 Urine Culture - Final
Urine Enterococcus faecium - VRE
08/26/24 23:48 MRSA Screen - Final
Nose No Methicillin Resistant Staphylococcus aureus isolated.
08/26/24 13:35 Influenza Types A & B (JAGDEEP) - Final
Nasal Swab Negative for Influenza A & B, NAAT
Negative results must be combined with clinical observations
and patient history.
Nucleic Acid Amplification test (NAAT)performed on the
[employer] platform.
Imaging:
08/27/2024 Renal ultrasound: Subcentimeter nonobstructing bilateral renal calculi. No hydronephrosis. Layering debris within the urinary bladder, possibly sequelae of cystitis.
08/26/24 CT head without contrast: No evidence of acute intracranial abnormality
08/26/2024 CXR (portable): No evidence of acute cardiopulmonary disease.
[2024-08-31 14:57] VITALS: BP 153/74
[2024-08-31] MEDS: OSCAL 500 + D 500 MG PO (17:58)
[2024-08-31] MEDS: VITAMIN D3 (cholecalciferol) 25 MCG PO (17:58)
[2024-08-31] MEDS: DETROL LA 4 MG PO (17:58)
--- NOTE | 2024-08-31 18:30 | NS.EMG ---
Electromyogram (EMG) Study
EMG/NCS Summary
Needle EMG of the left upper and left lower limbs and nerve conduction study of both lower limbs and the left upper limb was completed at the patient's bedside.
Electrodiagnostic Impressions:
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
Chronic left C5 radiculopathy.
Severe left median neuropathy at the wrist.
Comment: The patient demonstrated withdrawal reflexes in the lower limbs during nerve conduction/EMG testing, as well as hypertonicity inversion of both feet/ankles, and bilateral Babinski's sign suggestive of possible upper motor neuron pathology.
Full dictated report, tabular data, and waveforms to follow.
[2024-08-31 19:15] VITALS: BP 156/77
[2024-08-31] MEDS: SYNTHROID 175 MCG PO (21:12)
--- NOTE | 2024-08-31 21:26 | W.PN.URO.CBU ---
Today's Communication / Plan
-
no gu changes
Assessment / Plan
-
CONTINUE ZYVOX hold anticholinergics renal bladder u/s reviewed retention and non obstructing stones Hughes placed 1700cc pyuria drained ur cx sent Hold all anticholinerigcs will need hughes at discharge follow up with
primary urologist for urodynamics etc
Diagnosis
-
Date of Service: August 31, 2024
-
Patient Diagnosis:
Post Op Day:
Patient Diagnosis:
Post Op Day:
Patient Diagnosis:
Post Op Day:
Patient Diagnosis:uti and newly diagnosed urtinary retention 1700cc drained and also small renal stones doubt infection stones
Post Op Day:
Patient Diagnosis:uti in past on cipro now mental status change also on vesicare and detrol both of which are associated with dementia as is uti
Post Op Day:
Subjective
-
improving
Objective
-
Vital Signs
Temp Pulse Resp BP Pulse Ox
97.4 F 83 17 156/77 97
08/31/24 19:15 08/31/24 20:00 08/31/24 19:15 08/31/24 20:00 08/31/24 19:15
Intake and Output
08/30/24 08/31/24 09/01/24
06:59 06:59 06:59
Intake Total 840 / 840 300 / 300
Output Total 625 / 625 1550 / 1550 1000 / 1000
Balance -625 / -625 -710 / -710 -700 / -700
Intake:
Oral fluids 840 / 840 300 / 300
Output:
Urine, Hughes 625 / 625 1550 / 1550 1000 / 1000
Laboratory Results
08/30/24 06:14
08/30/24 06:14
Review of Systems
-
: Difficulty Voiding
Physical Exam
-
General - well developed, well nourished, no acute distress
Chest - clear bilaterally
Abdomen - soft, non-tender, positive bowel sounds, no CVAT, no incisional pain or distention
Genitalia - normal
Rectal - normal
Skin - warm & dry with no rash
Neuro - AOx3, no motor deficits
Extremities - no clubbing, no cyanosis, no edema
Incision - clean, dry
Dressing - clean, dry, intact
Care Review
Data Reviewed
Discussed with: Hospitalist and Nursing
[2024-08-31 23:18] VITALS: BP 151/63
[2024-09-01 03:39] VITALS: BP 159/73; BMI 16.9
[2024-09-01 07:38] VITALS: BP 162/76
[2024-09-01] MEDS: TYLENOL 650 MG PO (08:03)
[2024-09-01] MEDS: LIPITOR 10 MG PO (08:03)
[2024-09-01] MEDS: PROTONIX 40 MG PO (08:03)
[2024-09-01] MEDS: ZESTRIL 10 MG PO (08:06)
[2024-09-01] MEDS: ZYVOX 600 MG PO (08:06)
[2024-09-01] MEDS: LOW STRENGTH ASPIRIN 81 MG PO (08:07)
[2024-09-01] MEDS: MIRALAX 17 GRAMS PO (08:09)
--- NOTE | 2024-09-01 10:49 | W.PN.NEURO.1 ---
Today's Communication / Plan
-
discharge to SNF
Neuro Assessment/Plan
Assessment
Folate 13, B12 780
89 year old woman with 1-2 months progressive leg weakness
exam weakness distal > proximal, decreased tone, areflexia, severe vibratory loss in the knees.
peripheral neuropathy, EMG showing very severe length dependent axonal neuropathy
spoke extensively with patient's dtr Nora, the axonal loss occurred over many years, and in the initial stages of the disease, there is reinnervation where the denervated muscle fibers get nearby nerves to plug into them again but once the last
nerve fibers are lost, there is nobody left to resupply the denervated muscle making the weakness appear to come on much more quickly.
I have no rx for this
as outpatient she can go to orthotics shop and have MAFO made to stabilize her ankles, and potentially she could work with therapy and walk again, as she does still have reasonable proximal muscle strength; my opinion is that this is unlikely, but
it is more up to her than up to me
Exam also with Parkinson's which is a less significant problem contributing to some of the stiffness that you see, we discussed treatment but as it is a minor contribute to her presentation, with polypharmacy i don't think adding Sinemet is
worthwhile
Subjective/Objective
Subjective Data
Date of Service: September 01, 2024
Objective Data
Vital Signs
Temp Pulse Resp BP Pulse Ox
36.4 C 75 16 162/76 96
09/01/24 07:38 09/01/24 07:38 09/01/24 07:38 09/01/24 07:38 09/01/24 07:38
Lab Results
08/30/24 06:14
08/30/24 06:14
Sodium 132 mmol/L (135-145) L 08/30/24 06:14
Potassium 3.4 mmol/L (3.5-5.1) L 08/30/24 06:14
BUN 13 mg/dl (7-17) 08/30/24 06:14
Glucose 80 mg/dl (70-99) 08/30/24 06:14
Calcium 8.4 mg/dl (8.4-10.2) 08/30/24 06:14
Ryc-M-Uuunriwjiyc Pept 407 pg/ml 08/26/24 13:35
Vitamin B12 780 pg/ml (239-931) 08/26/24 13:35
Patient Allergies
amoxicillin Allergy (Verified 08/26/24 13:32)
Unknown
clavulanic acid [From Augmentin] Allergy (Verified 08/26/24 13:32)
Rash
hydrochlorothiazide Allergy (Verified 08/26/24 13:32)
Rash
Physical Exam
-
elderly, frail
AAOx3, speech clear, slow to process
VFF, EOMI, face symmetric
full strength b/l UE, b/l LE distal > proximal weakness, antigravity, decreased tone, +cogwheel rigidity, +bradykinesia
areflexic x4
sensation intact touch/pin; absent vibration at knees
[2024-09-01 11:05] VITALS: BP 137/65
--- NOTE | 2024-09-01 12:21 | W.PN.HOSP.TC ---
Today's Communication/Plan
-
DC to SNF when bed available
Assessment / Plan
Assessment / Plan
NAD, thin
Scleral Anicteric
MMM
No JVD
CTABL
RRR, S1/S2
Soft, NT, ND, BS+
Warm, Dry
Bilateral feet rotated and removed
AAOx3
Calm
Toxic metabolic encephalopathy likely secondary to cystitis failed treatment versus medication induced as on multiple anticholinergic with Vesicare and Detrol
- Suspect and believe that encephalopathy now has resolved, please see subjective
- Known history of UTI with MDR's
- Currently on meropenem awaiting sensitivities as urine with enterococci
- ID following
- Urology evaluated recommended to discontinue 2 anticholinergic agents
- CT head no acute intracranial abnormality
Gait abnormality
Will have neurology evaluate
-Concern for CIDP or axonal neuropathy
-EMG completed demonstrating severe chronic axonal polyneuropathy
--Neurology reviewed this diagnosis with family with recommendation of a MAFO bilateral brace that they can obtain at a local prosthesis/orthotic store
PT/OT evaluation
- Family agreeable with discharge to SNF
Overactive bladder/urinary retention
- Anticholinergic discontinued
- S/p Hubbard catheter
- Urology recommends outpatient follow-up.
Hypertension,
- Due to hypotension antihypertensives have been held such as lisinopril 20 hydralazine 25 twice a day and amlodipine
-As becoming more normotensive/hypertensive will resume antihypertensives slowly with lisinopril 10 mg twice daily
Nonischemic myocardial injury troponin likely elevated due to recent TAVR 08/18/2024
Troponin 0.094
2D echocardiogram without evidence of wall motion abnormalities
Pericardial effusion noted however likely related to recent TAVR
Will continue follow-up with cardiology recommendations
#Abnormal EKG post TAVR
Procedure done 08/18/24
-Consult CBC cardiology
EKG: Sinus rhythm with first-degree AV block 91 bpm, QTc 462 MS, septal infarct now present,
nonspecific T wave abnormality inferior and lateral leads compared to 08/19/2024
#Hyponatremia
History hyponatremia on 08/14/2024 na 123 did receive 1 dose of tolvaptan(samsca)
Stable at 134
#Anemia normocytic
S/p 1 unit PRBC has remained in the nines and stable
Hemodynamically stable
Without evidence of active bleeding
# Chronic hypothyroidism
Continue levothyroxine
Outpatient PCP follow-up for TFTs
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
2D echo 08/19/2024: EF 65-70%, normal LVSF, no wall abnormalities, TAVR Owen MOISÉS 23 peak mean gradients 19/10 mmHg. Trace AR
#Hx postop LBBB resolved 08/18/2024
#Memory impairment�mild starting May 2023 per son Srinivasa
States she usually knows him can follow directions however very confused this past week
#Hx falls
-Fall precautions
#HLD
- Continue simvastatin 10 mg daily
#Paroxysmal A-fib
- Off Xarelto due to falls
- Continue aspirin 81 mg daily
- No current rate control meds
#factor V Leiden hx
- Patient with bruising bilateral lower legs
#GERD
- Continue omeprazole 20 mg daily
DVT prophylaxis
SCDs
Spoke with Jesse over the phone provided update
Begin discharge planning
Physical therapy/Occupational Therapy recommended SNF
Anticipated Discharge: Today
Subjective/Interval History
-
Date of Service: September 01, 2024
Seen and examined. No no new complaints. No acute overnight events.
Objective Data
-
Vital Signs:
Vital Signs
Temp Pulse Resp BP Pulse Ox
97.4 F 71 17 137/65 96
09/01/24 11:05 09/01/24 11:05 09/01/24 11:05 09/01/24 11:05 09/01/24 07:38
I&O
08/31/24 09/01/24 09/02/24
06:59 06:59 06:59
Intake Total 840 / 840 300 / 300
Output Total 1550 / 1550 1400 / 1400
Balance -710 / -710 -1100 / -1100
--- NOTE | 2024-09-01 12:30 | CM ---
Addendum entered by Olesya Hawley 09/01/24 14:23:
[facility] requesting a later transport, changed to 5:45 p.m. Voicemail left for patients daughter.
Addendum entered by Olesya Hawley 09/01/24 14:06:
JUAN M spoke with Elvira from [facility], auth approved 09/01-09/05, auth # [id number], call [phone] for updates. Voicemail left for Miriam Farmer in admissions at SNF. Call to patients daughter, discussed discharge to SNF, ambulance transport scheduled for
2:45 p.m. IMM verbally reviewed, agreeable to plan, will place in chart.
Plan; [facility], 2:25 p.m. ambulance transport
Report: [phone], ext [phone]

Original Note:
CM reviewed chart, patient for discharge today. CM spoke with Miriam from [facility], can accept patient today, will require insurance auth. TT to PT/OT as patient will require updated therapy notes for insurance auth. Call to patients daughter,
Nora, left voicemail regarding d/c plan. Patient will likely require ambulance transport, forms provided to unit nurse. [facility] asking for updated clinicals to be faxed, report they can accept no later than 8:00 p.m. CM will continue
to follow for all discharge planning needs.
Plan; [facility], auth required, will require ambulance transport
[facility]
Dr. Everett: [phone]
Report: [phone], ext [phone]
--- NOTE | 2024-09-01 12:35 | W.DCSUMMARY ---
Discharge Summary
Discharge Data
Date of Admission: 08/26/24
Date of Discharge: 09/01/24
-
Pending Results: No
Hospital Course
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
Presented from facility with weakness and confusion that has been progressively getting worse over 8 days. Concern for UTI therefore was evaluated by infectious diseases that recommended to initiate meropenem. Urine analysis demonstrated
Enterococcus that was vancomycin resistant. ID eventually recommended to transition meropenem to linezolid 600 mg twice a day for 10 to 14 days.
Additionally evaluated by urology as was on Vesicare and Detrol. They recommended to discontinue this as this can also cause a change in mental status. Also found to have acute urinary retention with 1700 cc of urine in bladder. Hubbard catheter
was placed by urology. Recommended outpatient follow-up
Also on admission labs noted to have elevated troponin evaluated by cardiology did not believe this was related to acute coronary event. And then signed off with recommendations of outpatient cardiology follow-up with Dr. Arndt.
Evaluated by physical therapy recommended SNF. There was concern for gait abnormality with pigeon toed knees touching while standing even though she is a 2 max assist. I suspect this is related to deconditioning rather than neurologic compromise.
However neurology was consulted. 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 Unfortunately at this time there is no medical treatment for this per neurology. They have recommended an MAFO
bilateral braces which would be bought from a orthotic/prosthetic store. Neurology also brought up the potential of Parkinson's it has been determined at this time starting Sinemet would not provide significant improvement however at a later date
if family agrees at that time then may start low dose Sinemet and follow-up with outpatient neurology.
Additionally was found to have a low hemoglobin in the sevens With the lowest of 7.6 received 1 unit of PRBCs that appropriately improved. Without evidence of active bleeding. Likely related to acute infectionious process
Discharge Plan
-
Patient Disposition: Detention/SNF
Discharge Diagnosis/Procedures: Toxic encephalopathy
Cystitis
Urinary retention
Condition: Good
Activity Restrictions/Additional Instructions:
Presented from facility with weakness and confusion that has been progressively getting worse over 8 days. Concern for UTI therefore was evaluated by infectious diseases that recommended to initiate meropenem. Urine analysis demonstrated
Enterococcus that was vancomycin resistant. ID eventually recommended to transition meropenem to linezolid 600 mg twice a day for 10 to 14 days.
Additionally evaluated by urology as was on Vesicare and Detrol. They recommended to discontinue this as this can also cause a change in mental status. Also found to have acute urinary retention with 1700 cc of urine in bladder. Hubbard catheter
was placed by urology. Recommended outpatient follow-up
Also on admission labs noted to have elevated troponin evaluated by cardiology did not believe this was related to acute coronary event. And then signed off with recommendations of outpatient cardiology follow-up with Dr. Arndt.
Evaluated by physical therapy recommended SNF. There was concern for gait abnormality with pigeon toed knees touching while standing even though she is a 2 max assist. I suspect this is related to deconditioning rather than neurologic compromise.
However neurology was consulted. 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 Unfortunately at this time there is no medical treatment for this per neurology. They have recommended an MAFO
bilateral braces which would be bought from a orthotic/prosthetic store. Neurology also brought up the potential of Parkinson's it has been determined at this time starting Sinemet would not provide significant improvement however at a later date
if family agrees at that time then may start low dose Sinemet and follow-up with outpatient neurology.
Additionally was found to have a low hemoglobin in the sevens With the lowest of 7.6 received 1 unit of PRBCs that appropriately improved. Without evidence of active bleeding. Likely related to acute infectionious process
Referrals:
Cecile Hill CRNP [Specified Professional Personl] - in one to two weeks
Griffin Arndt MD [Active] - in two to three weeks
Ruslan Everett MD [Family Provider] -
Additional Discharge Medication Instructions: Lisinopril 20 mg p.o. twice daily decreased to lisinopril 10 mg p.o. twice daily
Hydralazine 25 mg twice daily discontinued as below pressure was low
Amlodipine 5 mg discontinued as blood pressure was low
Prescriptions:
New
linezolid 600 mg Tablet
600 mg PO BID Qty: 20 0RF
lisinopril 10 mg Tablet
10 mg PO BID Qty: 60 0RF
Continued
levothyroxine 175 MCG tablet
175 mcg PO HS
simvastatin 10 MG tablet
10 mg PO DAILY
Patient Comments:
08/26/24:FLAKITO
cholecalciferol (vitamin D3) 1,000 UNITS tablet
1,000 units PO QPM
nitroglycerin 0.4 mg tablet, sublingual
0.4 mg sublingual [id number] PRN (Reason: chest pain) Qty: 25 5RF
sorbitol 70 % Solution
30 ml PO Q48H
omeprazole 20 mg Capsule,Delayed Release(Dr/Ec)
20 mg PO DAILY
aspirin 81 mg tablet,chewable
81 mg PO DAILY Qty: 30 0RF
acetaminophen 325 mg Tablet
650 mg PO BID
Rx Instructions:
take for 14 days. Started on 08/20/24. End date 09/03/24
Premarin 0.625 mg/gram Cream
0.625 mg VAGINAL MOTH
calcium carbonate-vitamin D3 600 mg-20 mcg (800 unit) Tablet
1 tab PO QPM
acetaminophen 325 mg tablet
650 mg PO Q6HPRN MDD 3000mg PRN (Reason: mild pain,fever>100.5)
Discontinued
amlodipine 5 MG tablet
5 mg PO BID
Patient Comments:
08/26/24:FLAKITO
tolterodine 4 mg Capsule,Extended Release 24hr
4 mg PO QPM
hydralazine 25 mg Tablet
25 mg PO BID
Patient Comments:
08/26/24:FLAKITO
solifenacin 10 mg Tablet
10 mg PO DAILY
Patient Comments:
08/26/24:FLAKITO
lisinopril 20 mg Tablet
20 mg PO BID
Discharge Orders:
Discharge Patient (As Directed); Ordered 09/01/24
Ordered By: Branden Holm
Discharge Date and Time
Print Language: TOGOLESE
[2024-09-01 12:47] VITALS: BP 146/70; PULSE 69; O2SAT 95
[2024-09-01 12:48] VITALS: BP 146/70; PULSE 70; O2SAT 96
--- NOTE | 2024-09-01 14:29 | W.PN.ID1 ---
Date of Service
Date of Service: September 01, 2024
Today's Communication
Continue antibiotics. See below�
Assessment / Plan
Generalized weakness
Encephalopathy
Bacteriuria/pyuria; complicated urinary tract infection with VRE
Hyponatremia
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
CAD
HTN
Dyslipidemia
Hx hypothyroidism
Recommendations:
Continue Zyvox 600 mg p.o. twice daily to continue through 09/12 (14 days tx)
Follow-up UA/reflex culture 2 weeks following completion of therapy.
Follow platelets weekly while patient remains on linezolid.
����������������������������������������������������������
Chief Complaint
-: UTI
Subjective / Review of Systems
Review of Systems: No Fever and No Chills
Vital Signs / Physical Exam
Vital Signs
Vital Signs
Temp Pulse Resp BP Pulse Ox
97.4 F 71 17 137/65 96
09/01/24 11:05 09/01/24 11:05 09/01/24 11:05 09/01/24 11:05 09/01/24 07:38
Physical Exam
Constitutional: No Acute Distress, Comfortable, Chronically Ill, Non-toxic and Cachetic
Pulmonary: Non Labored
Gastrointestinal: Non Distended
Genito-Urinary: Hubbard and Clear Urine; Negative Turbid Urine or Hematuria
Neurological: Awake and Alert
Psychological: Calm
Objective Data
Lab Data
Lab Results
08/30/24 06:14
08/30/24 06:14
Estimated Creat Clear 45 ml/min 08/30/24 06:14
Lactic Acid < 0.5 mmol/L (0.7-2.0) L 08/26/24 21:38
Total Bilirubin 0.5 mg/dl (0.2-1.3) 08/30/24 06:14
AST 25 U/L (14-36) 08/30/24 06:14
ALT 15 U/L (0-35) 08/30/24 06:14
Alkaline Phosphatase 78 U/L (38-126) 08/30/24 06:14
Most recent labs reviewed.
Micro Results:
08/26/24 13:35 Urine Culture - Final
Urine Enterococcus faecium - VRE
08/27/24 17:57 Urine Culture - Final
Urine Enterococcus faecium - VRE
08/26/24 23:48 MRSA Screen - Final
Nose No Methicillin Resistant Staphylococcus aureus isolated.
08/26/24 13:35 Influenza Types A & B (JAGDEEP) - Final
Nasal Swab Negative for Influenza A & B, NAAT
Negative results must be combined with clinical observations
and patient history.
Nucleic Acid Amplification test (NAAT)performed on the
[employer] platform.
Imaging:
08/27/2024 Renal ultrasound: Subcentimeter nonobstructing bilateral renal calculi. No hydronephrosis. Layering debris within the urinary bladder, possibly sequelae of cystitis.
08/26/24 CT head without contrast: No evidence of acute intracranial abnormality
08/26/2024 CXR (portable): No evidence of acute cardiopulmonary disease.
[2024-09-01 16:05] VITALS: BP 152/81
[2024-09-01] MEDS: OSCAL 500 + D 500 MG PO (17:20)
[2024-09-01] MEDS: VITAMIN D3 (cholecalciferol) 25 MCG PO (17:20)
[2024-09-01] MEDS: DETROL LA 4 MG PO (17:20)
== END 2024-09-01 18:23 | DRG 689 ==
LOC: 3 WEST ACU 18:45
PROVIDERS: Clinical Nurse Specialist Family Health; Internal Medicine; Registered Nurse; ADMITTING PHYSICIAN Internal Medicine; ATTENDING PHYSICIAN Hospitalist; CONSULT PHYSICIAN Internal Medicine Cardiovascular Disease; CONSULT PHYSICIAN Internal Medicine Infectious Disease; CONSULT PHYSICIAN Psychiatry & Neurology Clinical Neurophysiology; CONSULT PHYSICIAN Specialist; EMERGENCY PHYSICIAN Emergency Medicine; FAMILY PHYSICIAN Internal Medicine
PROC: 30233N1 Transfusion of Nonautologous Red Blood Cells into Peripheral Vein, Percutaneous Approach (ICD-10-PCS; 2024-08-28)
DX: N30.00 Acute cystitis without hematuria (principal); G92.8 Other toxic encephalopathy; D68.51 Activated protein C resistance; I5A Non-ischemic myocardial injury (non-traumatic); E87.1 Hypo-osmolality and hyponatremia; Z16.21 Resistance to vancomycin; E44.0 Moderate protein-calorie malnutrition; Z68.1 Body mass index [BMI] 19.9 or less, adult; E03.9 Hypothyroidism, unspecified; E78.00 Pure hypercholesterolemia, unspecified; I10 Essential (primary) hypertension; I44.0 Atrioventricular block, first degree; I35.0 Nonrheumatic aortic (valve) stenosis; I25.10 Atherosclerotic heart disease of native coronary artery without angina pectoris; I95.9 Hypotension, unspecified; N32.81 Overactive bladder; G62.9 Polyneuropathy, unspecified; R29.6 Repeated falls; R26.9 Unspecified abnormalities of gait and mobility; I48.0 Paroxysmal atrial fibrillation; K21.9 Gastro-esophageal reflux disease without esophagitis; B95.2 Enterococcus as the cause of diseases classified elsewhere; D64.9 Anemia, unspecified; G20.A1 Parkinson's disease without dyskinesia, without mention of fluctuations; Z60.2 Problems related to living alone; Z86.16 Personal history of COVID-19; Z87.440 Personal history of urinary (tract) infections; Z74.01 Bed confinement status; Z88.0 Allergy status to penicillin; Z88.1 Allergy status to other antibiotic agents; Z88.8 Allergy status to other drugs, medicaments and biological substances; Z79.890 Hormone replacement therapy; Z79.82 Long term (current) use of aspirin; Z95.2 Presence of prosthetic heart valve; Z11.52 Encounter for screening for COVID-19
CPT/HCPCS: 70450; 71045; 76770; 80053; 81003; 81015; 82607; 82728; 82746; 82962; 83540; 83550; 83605; 83880; 83930; 83935; 84145; 84155; 84165; 84300; 84443; 84484; 85014; 85018; 85025; 85027; 86850; 86900; 86901; 86920; 87070; 87077; 87086; 87186; 87502; 87811; 92610; 93005; 94760; 95886; 95912; 96361; 96374; 97162; 97167; 97530; 99285; P9016

== ENCOUNTER → 2024-09-19 10:12 | Outpatient (REF) | payer OTHER, SELFPAY | LOC: HWRCS 10:12 | PROVIDERS: ATTENDING PHYSICIAN Internal Medicine; FAMILY PHYSICIAN Internal Medicine | DX: I35.0 Nonrheumatic aortic (valve) stenosis (principal) | CPT/HCPCS: 93306 ==

== ENCOUNTER → 2024-10-07 16:16 | Outpatient (REF) | payer OTHER, SELFPAY ==
[2024-06-07 09:11] VITALS: BMI 20.5
[2024-06-07 09:58] LABS: % Basophils 0.8 % (0-2); % Eosinophils 2.6 % (0-6); % Immature Granulocytes 0.8 % (0-0.5); % Lymphocytes 19.1 % (20.5-51.1); % Neutrophils 65.7 % (42.2-75.2); Absolute Basophils 0.1 10^3/uL (0-0.2); Absolute Eosinophils 0.2 10^3/uL (0-0.7); Absolute Immature Granulocytes 0.1 10^3/uL (0-0.05); Absolute Lymphocytes 1.3 10^3/uL (1.2-3.4); Absolute Monocytes 0.7 10^3/uL (0.1-0.6); Absolute Neutrophils 4.3 10^3/uL (1.4-6.5); Hematocrit 39.7 % (37.0-47.0); Mean Corp Hgb Conc. 32.7 g/dL (33.0-37.0); Mean Corpuscular Hgb 28.5 pg (27.0-31.0); Mean Corpuscular Volume 87.1 fL (81.0-99.0); Mean Platelet Volume 9.2 fL (7.4-10.4); Nucleated Red Blood Cells % 0 %; Platelet Count 327 10^3/uL (130-400); Red Blood Cell Count 4.56 10^6/uL (4.20-5.40); Red Cell Dist. Width 13.3 % (11.5-14.5); White Blood Cell Count 6.5 10^3/uL (4.8-10.8)
[2024-06-07 10:19] LABS: ALT (SGPT) 34 U/L (0-35); AST (SGOT) 36 U/L (14-36); Albumin 4.3 g/dl (3.5-5.0); Alkaline Phosphatase 98 U/L (38-126); Blood Urea Nitrogen 19 mg/dl (7-17); Calcium 9.5 mg/dl (8.4-10.2); Carbon Dioxide 28 mmol/L (22-30); Chloride 100 mmol/L (98-107); Estimated Creatinine Clearance 45 ml/min; Glucose 97 mg/dl (70-99); Sodium 137 mmol/L (135-145); Total Bilirubin 0.5 mg/dl (0.2-1.3); Total Protein 7.5 g/dl (6.3-8.2); eGFR > 60.00
== END ==
LOC: REG 16:16
PROVIDERS: ATTENDING PHYSICIAN Student in an Organized Health Care Education/Training Program; FAMILY PHYSICIAN Internal Medicine; OTHER PHYSICIAN Internal Medicine
DX: I35.0 Nonrheumatic aortic (valve) stenosis (principal); I25.10 Atherosclerotic heart disease of native coronary artery without angina pectoris; I48.0 Paroxysmal atrial fibrillation; I10 Essential (primary) hypertension
CPT/HCPCS: 36415; 80053; 85025; 93005